=== PATIENT | male | born 1955 | race Caucasian/White ===

== ENCOUNTER 2016-05-03 12:44 | Emergency (ER) | payer BC ==
[~2016-05-03] VITALS: Ht 172.7 cm; Wt 83.0 kg
[~2016-05-03 12:44] MED LIST: ASPEC81 PO; HYDR-5688 PO; LVQ750 PO; MULT-506 PO; NRN600 PO
[2016-05-03 12:49] VITALS: TEMP 36.9; Ht 172.7 cm; Wt 83.0 kg
[2016-05-03] MEDS ORDERED: MoRPHine SULFATE 10 MG/ML CARP/VIAL IM STA (13:14)
[2016-05-03] MEDS ORDERED: MULT-599 PO (13:17)
[2016-05-03] MEDS ORDERED: CYCL5TAB PO (13:17)
[2016-05-03] MEDS ORDERED: NAPR-1169 PO (13:17)
[2016-05-03] MEDS ORDERED: IBUP-1450 PO (13:17)
--- NOTE | 2016-05-03 15:25 | DIAGNOSTIC IMAGING REPORT ---
MRI LUMBAR SPINE W/O CONTRAST CLINICAL HISTORY: Low back pain with left leg radiculopathy and left leg weakness. TECHNIQUE: Sagittal and axial T1, T2 and STIR images were obtained. COMPARISON STUDY: No previous studies for comparison. OBSERVATIONS: The vertebral bodies and posterior elements appear intact. There is no abnormal bony signal present to suggest a marrow replacement process. L1-2: No disc protrusions or extrusions. No evidence of spinal canal or neural foraminal compromise. L2-3: No disc protrusions or extrusions. No evidence of spinal canal or neural foraminal compromise. L3-4: There is a circumferential disc bulge with minor spinal stenosis. There is no stomach and foraminal narrowing L4-5: There is a circumferential disc bulge with minor spinal canal narrowing. There is minor right-sided foraminal narrowing. L5-S1: No disc protrusions or extrusions. No evidence of spinal canal or neural foraminal compromise. The conus medullaris appears normal. There is a 2 mm focus of T2 decreased signal within the cauda equina at the L3-4 level. This is of doubtful acute clinical significance. IMPRESSION: Mild spondylitic changes with disc bulges and minor spinal canal narrowing at the L3-4 and L4-5 levels. Electronically signed by: Eduardo Basilio M.D. 05/03/2016 3:23 PM Dictated Date/Time: 05/03/2016 3:18 PM
[2016-05-03] MEDS ORDERED: OXYC-57 PO (15:56)
--- NOTE | 2016-05-03 15:59 | EMERGENCY ROOM VISIT NOTE ---
History First contact with patient: 13:01 Chief Complaint: BACK PAIN Stated Complaint: LOWER BACK PAIN, LOWER LEFT LEG PAIN History of Present Illness The patient is a 60 year old male who presents to the Emergency Room with complaints of low back pain with radiation to the left leg 5 days. The patient states that he has had pain in the center of his low back with radiation down the left leg worsening over the past 5 days. He states that for the past 3 days, the pain has been so severe that he is having difficulty sleeping. He has been at his primary care provider 3-4 times and has been given prescriptions for ibuprofen, naproxen and Flexeril. He has taken all of these medications without relief. He rates the discomfort a 10/10. He does report a history of back issues and has had injections by pain management in the past. He reports weakness in the left leg and states that the leg drags when he walks. He does not do any heavy lifting or manual labor. He denies any specific injury to the back. The patient denies any numbness of the leg, bowel or bladder incontinence, urinary retention, dysuria, abdominal pain, nausea or vomiting. He denies any saddle anesthesias. He denies any recent fevers/chills. Review of Systems A complete 6 point review of systems was reviewed with the patient with pertinent positives and negatives as per history of present illness. All else were negative. Past Medical/Surgical History Medical Problems: (1) Carpal tunnel syndrome Family History Cancer Diabetes mellitus Heart disease Hypertension Lung disease Social History Smoking Status: Never Smoker Alcohol Use: occasionally Marital Status: Housing Status: lives with significant other Occupation Status: employed Current/Historical Medications Scheduled Naproxen (Naprosyn), 500 MG PO BID Scheduled PRN Cyclobenzaprine Hcl (Flexeril), 7.5 TAB PO HS PRN for Muscle Spasms Ibuprofen (Motrin), 600 MG PO Q6H PRN for Pain Oxycodone/Acetaminophen 5MG/325MG (Percocet 5MG/325MG), 1-2 TABS PO Q4H PRN for Pain Miscellaneous Medications Multiple Vitamins W/ Minerals (Mens 50+ Multi Vitamin &) Allergies Coded Allergies: Codeine (Unverified Allergy, Unknown, ., 05/03/16) Physical Exam Vital Signs Date Time Temp Pulse Resp B/P Pulse Ox O2 Delivery O2 Flow Rate FiO2 05/03/16 16:28 89 16 127/84 97 05/03/16 12:49 36.9 101 16 141/90 95 Room Air Physical Exam VITALS: Vitals are noted on the nurse's note and reviewed by myself. No abnormalities noted. GENERAL: This is a 60-year-old male, in no acute distress, nondiaphoretic, well- developed well-nourished. SKIN: The skin was without rashes, erythema, edema, or bruising. HEAD: Normocephalic atraumatic. EYES: Pupils equal round and reactive to light and accommodation. The Extraocular movements intact. NECK: Supple without nuchal rigidity. No cervical spine tenderness. No paraspinous muscle tenderness. No lymphadenopathy. HEART: Regular rate and rhythm without murmurs gallops or rubs. LUNGS: Clear to auscultation bilaterally without wheezes, rales or rhonchi. ABDOMEN: Soft, nontender. MUSCULOSKELETAL: No muscle atrophy, erythema, or edema noted of the back. There is mild tenderness over the left lumbar region. There is no tenderness over the thoracic spine or paraspinous muscles. There are no muscle spasms present. The left leg is slightly weak compared to the right. Distal sensation to touch is intact. Patient does display some difficulty with gait, dragging the left leg slightly. NEURO: Patient was alert and oriented to person place and time. Normal sensation to light and sharp touch. Deep tendon reflexes 2+ in the lower extremities. Dorsalis pedis pulse 2+ bilaterally. Medical Decision & Procedures ER Provider Diagnostic Interpretation: MRI LUMBAR SPINE W/O CONTRAST CLINICAL HISTORY: Low back pain with left leg radiculopathy and left leg weakness. TECHNIQUE: Sagittal and axial T1, T2 and STIR images were obtained. COMPARISON STUDY: No previous studies for comparison. OBSERVATIONS: The vertebral bodies and posterior elements appear intact. There is no abnormal bony signal present to suggest a marrow replacement process. L1-2: No disc protrusions or extrusions. No evidence of spinal canal or neural foraminal compromise. L2-3: No disc protrusions or extrusions. No evidence of spinal canal or neural foraminal compromise. L3-4: There is a circumferential disc bulge with minor spinal stenosis. There is no stomach and foraminal narrowing L4-5: There is a circumferential disc bulge with minor spinal canal narrowing. There is minor right-sided foraminal narrowing. L5-S1: No disc protrusions or extrusions. No evidence of spinal canal or neural foraminal compromise. The conus medullaris appears normal. There is a 2 mm focus of T2 decreased signal within the cauda equina at the L3-4 level. This is of doubtful acute clinical significance. IMPRESSION: Mild spondylitic changes with disc bulges and minor spinal canal narrowing at the L3-4 and L4-5 levels. Medications Administered Medications (Trade) Dose Ordered Sig/Brayan Route Start Time Stop Time Status Last Admin Dose Admin Morphine Sulfate (MoRPHine SULFATE INJ) 8 mg NOW STAT IM 05/03/16 13:14 05/03/16 13:18 DC 05/03/16 13:37 8 MG Medical Decision Differential diagnosis includes cauda equina syndrome, cord compression, lumbar disc herniation, muscular strain, muscle spasm, epidural abscess, malignancy, among others. The patient was evaluated as above. He was given 8 mg morphine IM with significant relief of his pain. As the patient did report weakness in the left leg and did display some objective weakness and gait difficulty, I chose to perform an MRI of the lumbar spine. MRI was performed and read by radiology with mild disc bulge and minor canal narrowing at L3 to L4 and L4 to L5. The patient was informed of these findings. He was instructed to continue the naproxen at home and will be given a prescription for Percocet as well. He was instructed to follow-up closely with his primary care provider and possibly pain management, as he has seen them in the past. He was educated on worrisome symptoms which would necessitate return to the emergency department sooner. The patient was independently evaluated by Dr. You, ED attending physician , who agreed with my assessment and treatment plan. The patient verbalized his understanding of my assessment and treatment plan and was discharged home in good condition. [place] Drug Monitoring Program Search Results: patient reviewed within database, no issues identified Impression Primary Impression: Lumbar radiculopathy Departure Information Dispostion Home / Self-Care Condition GOOD Prescriptions Oxycodone/Acetaminophen 5MG/325MG (PERCOCET 5MG/325MG) Tab 1-2 TABS PO Q4H Y for Pain, #20 TAB For Initial Treatment Prov: Lily Haskins ., AMOS 05/03/16 Referrals Osmin Betancur M.D. (PCP) Patient Instructions My [facility] Additional Instructions You have been treated in the Emergency Department for Back Pain. You have received pain medicine in the emergency department which impairs your ability to operate a vehicle. It is illegal for you to drive after receiving these medicines. You have been prescribed Percocet to be used for pain control. This is a narcotic medication. You cannot drive or consume alcohol while on this medicine. This medicine should only be used for pain that cannot be controlled with [id number] pain medicines. Follow-up with your primary care provider this week regarding your back pain. For pain control, you can use the following [id number] medicines (if >12 yo): - Regular strength (325mg/tab) Tylenol (acetaminophen) 2 tabs every 4-6 hours as needed. Do not exceed 12 tablets in a 24 hour period. Avoid taking more than 4 grams (4000 mg) of Tylenol per day. This includes any other sources of acetaminophen you may take on a regular basis. - Regular strength (200 mg/tab) Advil (ibuprofen) 1-2 tabs every 4-6 hours as needed. Do not exceed a dose of 3200 mg per day. If this is an acute injury, ice can be applied to the area of pain for the first 3 days to help decrease pain and inflammation. After the first 3 days, a heating pad can be used over the area for continued soothing relief. You should schedule a follow-up appointment in 2-3 days with your Primary Care Provider for further evaluation and treatment of your back pain. Return to the Emergency Department if your current symptoms worsen despite treatment course outlined above, or if you develop any of the following symptoms : intractable pain despite aforementioned treatment course, loss of control of your bowel or bladder, numbness or tingling in your groin, or development of a fever.
[2016-05-03 16:28] VITALS: BP 127/84; PULSE 89; O2SAT 97
--- NOTE | 2016-05-03 19:42 | EMERGENCY ROOM VISIT NOTE ---
ED Visit Note First contact with patient: 13:01 I have personally evaluated and examined this patient. I agree with assessment and plan of Lily Haskins PA-C. Arrives with leg weakness and low back pain. MRI completed and with pain meds notes leg weakness improved.
[2016-05-04] MEDS ORDERED: PRED50TA PO (15:35)
[2016-06-16] MEDS ORDERED: BUME1TAB PO (13:53)
[2016-06-16] MEDS ORDERED: BISA-16 PO (13:53)
[2016-06-16] MEDS ORDERED: GLC/500 PO (13:53)
[2016-06-16] MEDS ORDERED: OXYC-57 PO (13:53)
[2016-06-25] MEDS ORDERED: RXC5 PO (14:22)
[2016-09-01] MEDS ORDERED: OXYM1TAB PO (10:38)
[2016-09-01] MEDS ORDERED: HYDR2TAB48 PO (10:38)
== END 2016-05-03 16:29 | disposition home or self-care (01) ==
LOC: C.EDB 12:46 → C.EDD 16:29
DX: M54.16 Radiculopathy, lumbar region (principal); Z83.3 Family history of diabetes mellitus; Z82.49 Family history of ischemic heart disease and other diseases of the circulatory system

== ENCOUNTER 2016-05-04 13:20 | Emergency (ER) | payer BC ==
[~2016-05-04] VITALS: Ht 172.7 cm; Wt 72.9 kg
[~2016-05-04 13:20] MED LIST changes: -ASPEC81 PO; +CYCL5TAB PO; -HYDR-5688 PO; +IBUP-1450 PO; -LVQ750 PO; -MULT-506 PO; +MULT-599 PO; +NAPR-1169 PO; -NRN600 PO; +OXYC-57 PO
[2016-05-04 13:24] VITALS: TEMP 37; Ht 172.7 cm; Wt 72.9 kg
[2016-05-04] MEDS ORDERED: KETOROLAC TROMETHAMINE 60 MG/2 ML VIAL IM STA (14:06)
[2016-05-04] MEDS ORDERED: DEXAMETHASONE SOD INJ 10 MG/ML VIAL IM ONE (14:15)
[2016-05-04] MEDS ORDERED: PRED50TA PO (15:35)
[2016-05-04 15:46] VITALS: BP 139/89; PULSE 94; O2SAT 94
--- NOTE | 2016-05-05 17:56 | EMERGENCY ROOM VISIT NOTE ---
History First contact with patient: 13:45 Chief Complaint: LEG PAIN,LEG INJURY Stated Complaint: RIGHT LEG PAIN History of Present Illness The patient is a 60 year old white male who presents to the Emergency Room with complaints of continued left low back and leg pain. He was seen here last night and was diagnosed with sciatica. He was prescribed Percocet. He states the Percocet is not helping his pain. He did receive an injection of morphine last night and states that helped. No new trauma. He is having developed a sleeping. His and mother accompany him today. Pain is rated as 10/10. He denies any loss of bowel or bladder control. He saw his PCP on Thursday and was prescribed Naprosyn and cyclobenzaprine. He denies any falls or trauma. He had an MRI yesterday that showed mild stenosis and disc protrusion. No significant findings requiring surgical intervention or admission. Review of Systems REVIEW OF SYSTEM: HEENT: No dizziness, visual problems, hearing loss, or tinnitus. There is no difficulty swallowing and no oral lesions are present. PULMONARY: No cough, shortness of breath, sputum production or hemoptysis. CARDIOVASCULAR: No chest pain, palpitations, shortness of breath or peripheral edema. GASTROINTESTINAL: No diarrhea, constipation, nausea, vomiting, or abdominal pain. GENITOURINARY: No dysuria, frequency, urgency or nocturia. NEUROLOGIC: No weakness, muscle tenderness, epilepsy or history of neurological problems. MUSCULOSKELETAL: No history of joint tenderness/swelling. No history of arthritis or arthralgias. Significant for chronic back pain. SKIN: No rashes or lesions. ENDOCRINE: No history of diabetes, thyroid disorders, or abnormal hair growth. Past Medical/Surgical History Medical Problems: (1) Carpal tunnel syndrome Previous surgeries: Carpal tunnel release, cubital tunnel release, appendectomy Family History Cancer Diabetes mellitus Heart disease Hypertension Lung disease Social History Smoking Status: Never Smoker Smokeless Tobacco Use: No Alcohol Use: none Marital Status: Housing Status: lives with significant other Occupation Status: employed Current/Historical Medications Scheduled Naproxen (Naprosyn), 500 MG PO BID Prednisone (Prednisone), 50 MG PO DAILY Scheduled PRN Cyclobenzaprine Hcl (Flexeril), 7.5 TAB PO HS PRN for Muscle Spasms Ibuprofen (Motrin), 600 MG PO Q6H PRN for Pain Oxycodone/Acetaminophen 5MG/325MG (Percocet 5MG/325MG), 1-2 TABS PO Q4H PRN for Pain Miscellaneous Medications Multiple Vitamins W/ Minerals (Mens 50+ Multi Vitamin &) Allergies Coded Allergies: Codeine (Unverified Allergy, Unknown, ., 05/04/16) Physical Exam Vital Signs Date Time Temp Pulse Resp B/P Pulse Ox O2 Delivery O2 Flow Rate FiO2 05/04/16 15:46 94 18 139/89 94 05/04/16 13:24 37.0 92 18 131/90 98 Room Air Pain Rating (0-10): 5.0 Physical Exam Gen.: Well developed, well-nourished, middle-aged white male, in obvious discomfort. No acute distress. Sitting on a bed. Alert and oriented. He does not appear in 10/10 pain. Skin:Warm and dry with good turgor. No rashes or lesions. No ecchymosis or erythema. The patient is not diaphoretic. No abrasions. Musculoskeletal: Low back evaluation reveals no obvious asymmetry or deformity. He has no discomfort with palpation over the vertebral bodies or discs spaces. There is pain with palpation over the left SI joint. Pain extends into the buttock and along the sciatic notch. Pressure in the sciatic notch increases his left leg radiculopathy. No pain with palpation on the right SI joint. He has intact motor function to both lower extremities. Hip flexion increases pain on the left as does Kernig/Brudzinski testing. No increase in pain with hip flexion or Kernig/Brudzinski testing on the right leg. Neurologic: Gross sensation is intact across all aspects of the left leg by soft touch. DTRs are 2+ bilaterally at the knees and ankles. Peripheral pulses are 2+. Medical Decision & Procedures Medications Administered Medications (Trade) Dose Ordered Sig/Brayan Route Start Time Stop Time Status Last Admin Dose Admin Ketorolac Tromethamine (Toradol Inj) 60 mg NOW STAT IM 05/04/16 14:06 05/04/16 14:08 DC 05/04/16 14:57 60 MG Dexamethasone Sodium Phosphate (Decadron Inj) 10 mg NOW ONCE IM 05/04/16 14:15 05/04/16 14:16 DC 05/04/16 14:57 10 MG Toradol 60 mg IM, and Decadron 10 mg IM ED Course Patient and his family were educated regarding today's findings. Conservative care measures were discussed. His MRI from yesterday was reviewed. He has only mild spondylitic changes with disc bulging and minor spinal canal narrowing at the L3/4 at L4/5 levels. No evidence of neural foraminal compromise. Patient was given injections of Toradol 60 mg and Decadron 10 mg and monitored. His pain started to decrease. He was instructed to use the Percocet that he was given yesterday. Additional prescription was given for prednisone to be started on Thursday and take it daily for a week. He should also take his Naprosyn twice a day with food. Avoid the cyclobenzaprine. He has had successful cortisone injections in his low back from pain management. He may call Dr. calles tomorrow for follow-up injections. Gentle stretching daily. Moist heat to the left buttock may also improve his discomfort. Return to the ED for any loss of bowel or bladder control. Medical Decision Possibility of cauda equina, lumbar fracture, disc protrusion, facet syndrome, SI joint dysfunction, sciatica, and muscle strain were considered among others. Impression Primary Impression: Sciatica of left side Additional Impression: Sacroiliac joint dysfunction of left side Departure Information Dispostion Home / Self-Care Condition GOOD Prescriptions Prednisone (Prednisone) 50 Mg Tab 50 MG PO DAILY for 4 Days, #4 TAB Prov: Bronson Youngblood,P.A. 05/04/16 Referrals Abrahan Calles D.O. Forms HOME CARE DOCUMENTATION FORM, SPECIAL NARCOTICS INSTRUCTIONS, IMPORTANT VISIT INFORMATION Patient Instructions My [facility], ED Sciatica Additional Instructions Start your prednisone on Thursday morning and take it daily Take Naprosyn twice a day with food Add Percocet 1-2 tablets every 6 hours as needed for severe pain-no driving Avoid the cyclobenzaprine Call Dr. calles office tomorrow to follow-up for injections Gentle stretching daily Use Tylenol for mild pain-do not take if you are using the Percocet Moist heat to the left buttock may improve your discomfort Problem Qualifiers
[2016-06-16] MEDS ORDERED: BUME1TAB PO (13:53)
[2016-06-16] MEDS ORDERED: GLC/500 PO (13:53)
[2016-06-16] MEDS ORDERED: OXYC-57 PO (13:53)
[2016-06-16] MEDS ORDERED: BISA-16 PO (13:53)
[2016-06-25] MEDS ORDERED: RXC5 PO (14:22)
[2016-09-01] MEDS ORDERED: HYDR2TAB48 PO (10:38)
[2016-09-01] MEDS ORDERED: OXYM1TAB PO (10:38)
== END 2016-05-04 15:47 | disposition home or self-care (01) ==
LOC: C.EDB 13:21 → C.EDD 15:47
DX: M54.42 Lumbago with sciatica, left side (principal); M53.3 Sacrococcygeal disorders, not elsewhere classified; Z88.5 Allergy status to narcotic agent; Z80.9 Family history of malignant neoplasm, unspecified; Z83.3 Family history of diabetes mellitus; Z82.49 Family history of ischemic heart disease and other diseases of the circulatory system; Z79.899 Other long term (current) drug therapy

== ENCOUNTER → 2016-05-26 | Outpatient (CLI) | payer BC ==
[~2016-05-26] MED LIST changes: +BISA-16 PO; +BUME1TAB PO; +GLC/500 PO; +HYDR2TAB48 PO; +INSDGIPEN SC; +OXYC7.5T66 PO; +OXYM1TAB PO; +PRD20 PO; +RXC5 PO
--- NOTE | 2016-05-26 10:50 | DIAGNOSTIC IMAGING REPORT ---
ABDOMINAL ULTRASOUND COMPLETE HISTORY: Pain R/O PANCREATIC Neoplasm, type II Diabetes, swelling. COMPARISON: 04/24/2014 FINDINGS: Pancreas: The pancreas demonstrates a normal echotexture. Liver: Unremarkable. Gallbladder: No gallbladder wall thickening. No gallstones. CBD: 4 mm Kidneys: 2.9 cm right renal cyst. Otherwise negative renal ultrasound Spleen: Normal in size. Aorta: Normal in caliber. IVC: Patent. IMPRESSION: Small right renal cyst. Otherwise negative study Electronically signed by: Yassine Pittman M.D. 05/26/2016 10:49 AM Dictated Date/Time: 05/26/2016 10:47 AM
== END | disposition home or self-care (01) ==
LOC: C.ULTRBC 09:44
PROVIDERS: ATTEND Family Medicine
DX: E11.9 Type 2 diabetes mellitus without complications (principal); R60.9 Edema, unspecified

== ENCOUNTER → 2016-06-16 | Outpatient (CLI) | payer BC ==
[~2016-06-16] MED LIST changes: +AZIT250T PO
--- NOTE | 2016-06-16 13:22 | DIAGNOSTIC IMAGING REPORT ---
CHEST 2 VIEWS ROUTINE HISTORY: PRE OP COMPARISON: Chest 04/23/2014. FINDINGS: The lungs are clear. Cardiac silhouette is normal in size. No pleural effusions. No pneumothorax. IMPRESSION: No acute process. Electronically signed by: Ion Camacho M.D. 06/16/2016 1:20 PM Dictated Date/Time: 06/16/2016 1:19 PM
[2016-06-16 13:35] LABS: BASO % 1.3 %; BASO ABS # 0.08 K/uL (0-0.2); COMPLETE YES; EOS % 2.4 %; HEMATOCRIT 41.8 % (42-52); IG% 0.3 %; LYMPH % 42.7 %; LYMPH ABS # 2.68 K/uL (1.2-3.4); MEAN CELL VOLUME 86.2 fL (80-100); MEAN CORPUSCULAR HEMOGLOBIN 30.9 pg (25-34); MEAN CORPUSCULAR HGB CONC 35.9 g/dl (32-36); MEAN PLATELET VOLUME 9.8 fL (7.4-10.4); MONO % 7.3 %; PLATELET COUNT 305 K/uL (130-400); RED BLOOD COUNT 4.85 M/uL (4.7-6.1); WHITE BLOOD COUNT 6.28 K/uL (4.8-10.8)
[2016-06-16 13:39] LABS: URINE APPEARANCE CLEAR (CLEAR); URINE BILIRUBIN NEG (NEG); URINE COLOR YELLOW; URINE NITRITE NEG (NEG); URINE SPECIFIC GRAVITY 1.018 (1.000-1.030); UROBILINOGEN NEG (NEG)
[2016-06-16 13:51] LABS: MANUAL MICROSCOPIC REQUIRED? NO; REVIEW REQ? NO
[2016-06-16 14:01] LABS: BLOOD UREA NITROGEN 15 mg/dl (7-18); CALCIUM 8.9 mg/dl (8.5-10.1); CARBON DIOXIDE 31 mmol/L (21-32); CHLORIDE 97 mmol/L (98-107); CREATININE 0.77 mg/dl (0.60-1.40); GLUCOSE 288 mg/dl (70-99); POTASSIUM 3.8 mmol/L (3.5-5.1); SODIUM 136 mmol/L (136-145)
== END | disposition home or self-care (01) ==
LOC: C.CPL 11:52
PROVIDERS: ATTEND Orthopaedic Surgery Orthopaedic Surgery of the Spine
DX: M51.26 Other intervertebral disc displacement, lumbar region (principal)

== ENCOUNTER 2016-06-25 05:46 | Inpatient (IN) | payer BC, OTHER ==
[2016-06-16 13:53] VITALS: BMI 25.0
--- NOTE | 2016-06-24 08:53 | HISTORY & PHYSICAL EXAMINATION ---
DATE OF ADMISSION: 06/25/2016 HISTORY OF PRESENT ILLNESS: The patient presents to our office with the complaint of lower back pain radiating down the left leg including the buttock, thigh and weakness in the left leg. This started abruptly about 6-8 weeks ago. His symptoms are progressing. He was sent to the Emergency Room multiple times because of this. He has trialed [address] Calles which were not providing relief. He has been requiring pain medications. He is using a walking stick to hold himself up. He cannot be on his feet for more than a minute secondary to this pain. He denies bowel or bladder dysfunction. PAST MEDICAL HISTORY: The patient's medical history is significant for diabetes. PAST SURGICAL HISTORY: Significant for appendectomy, elbow surgeries and right hand surgery. MEDICATIONS: Include Lyrica and gabapentin. CURRENT MEDICATIONS: Include metformin 500 mg 2 tabs twice a day, Dulcolax 5 mg 2 in the morning, 1 in the evening and unknown water pill 1 tab twice a day and Percocet 7.5/325 one every 2 hours. SOCIAL HISTORY: He does not work. He is . Alcohol a beer several a week. Tobacco use is none listed. FAMILY HISTORY: Significant for lung cancer. REVIEW OF SYSTEMS: Significant for difficulty walking, hearing loss, vision loss. PHYSICAL EXAMINATION: VITAL SIGNS: 5 feet 8, 195 pounds. HEAD, EYES, EARS, NOSE, AND THROAT: Speech is appropriate. CARDIOPULMONARY: No gross abnormalities. ABDOMEN: Soft, nontender. GENITOURINARY: Deferred. NEUROLOGIC: Cranial nerves II-XII grossly intact. MUSCULOSKELETAL: Moves slowly around the room. He does require a cane. He is in obvious distress. He has weakness over the left quadriceps roughly 3/5. He has some blunting sensation over the left thigh. ASSESSMENT: Right-sided disc herniation L3-L4 causing stenosis. PLAN: At this point in time, he has trialed and failed conservative therapy and may consider surgical intervention. Surgery would require lumbar decompression with instrumented fusion, L3-4, L4-5. Risks, benefits, pros, cons, and alternatives were outlined in detail. The patient would like to proceed with the above-mentioned surgical planning. MARY IMOGEN[facility]ASSETT HOSPITALNapoleon
[~2016-06-25] VITALS: Ht 170.2 cm; Wt 74.1 kg
[2016-06-25] VITALS (9 sets, daily range): BP systolic 117–134; BP diastolic 71–80; PULSE 82–98; TEMP 36.4–36.8; O2SAT 97–100; BMI 25.0
[~2016-06-25 05:46] MED LIST changes: -AZIT250T PO; -CYCL5TAB PO; -HYDR2TAB48 PO; -IBUP-1450 PO; -INSDGIPEN SC; -NAPR-1169 PO; -OXYC7.5T66 PO; -OXYM1TAB PO; -PRD20 PO; -RXC5 PO
[2016-06-25] MEDS ORDERED: CEFAZOLIN 1000MG/55 ML D5W IV SCH (06:00)
[2016-06-25] MEDS ORDERED: LACTATED RINGER'S 1000ML 1,000 ML IV SCH (06:00)
[2016-06-25] MEDS ORDERED: MIDAZOLAM HCL 1 MG/ML 2ML VIAL ONE (06:45)
[2016-06-25] MEDS ORDERED: FENTANYL CITRATE INJ 50 MCG/1 ML 2 ML VIAL ONE ×4 (06:45→09:12)
[2016-06-25] MEDS ORDERED: SODIUM CHLORIDE 0.9% PF 50 ML VIAL ONE (07:03)
[2016-06-25] MEDS ORDERED: BACITRACIN 50000 UNIT VIAL ONE (07:03)
[2016-06-25] MEDS ORDERED: BUPIVACAINE/EPINEPHRINE 0.5% MPF 1:200,000 30 ML VIAL ONE (07:03)
--- NOTE | 2016-06-25 07:24 | History & Physical Bridge Note ---
H&P Re-Evaluation Bridge Note: I have examined the patient, reviewed the History & Physical and in the interval since the performance of the History & Physical I have noted the following changes of clinical significance: No changes noted
[2016-06-25] MEDS ORDERED: HYDROmorphone INJ 2 MG/ML SYR/VIAL ONE ×2 (08:02→09:22)
[2016-06-25] MEDS ORDERED: EpHEDrine SULFATE INJ 50 MG/ML AMP IV PRN (08:15)
[2016-06-25] MEDS ORDERED: ATROPINE SULFATE 0.1 MG/ML 5ML SYR IV PRN (08:15)
[2016-06-25] MEDS ORDERED: PHENYLEPHRINE 100MCG/ML 5ML SYR IV PRN (08:15)
[2016-06-25] MEDS ORDERED: ONDANSETRON INJ 2 MG/ML 2 ML VIAL IV PRN ×2 (08:15→09:15)
[2016-06-25] MEDS ORDERED: PROPOFOL IV EMULSION 10 MG/ML 20 ML VIAL IV ONE (08:48)
[2016-06-25] MEDS ORDERED: LIDOCAINE HCL 2% 2 ML VIAL (20MG/ML) ONE (08:48)
[2016-06-25] MEDS ORDERED: ROCURONIUM BROMIDE 10 MG/ML 5 ML VIAL ONE (08:48)
[2016-06-25] MEDS ORDERED: DEXAMETHASONE SOD INJ 4 MG/ML VIAL ONE (08:48)
[2016-06-25] MEDS ORDERED: FLOSEAL HEMOSTATIC MATRIX 10ML TOP ONE (09:01)
[2016-06-25] MEDS ORDERED: SODIUM CHLORIDE 0.9% 1000ML 1,000 ML IV SCH (09:10)
--- NOTE | 2016-06-25 09:10 | [facility] Post Operative Brief Note ---
Immediate Operative Summary Operative Date Jun 25, 2016. Pre-Operative Diagnosis Right Sided Disc Herniation L3-L4 Causing Stenosis. Post-Operative Diagnosis Same as preoperative. Procedure(s) Performed L3-L5 Posterior Lumbar Decompression, Fusion with Pedicle Screw Fixation, Interbody Fusion with Placement of Interbody Device L4-L5, Application of Ramona Allograft, Bone Morphogenetic Protein Surgeon Veterinary Science Teacher Surgeon(s) Archana Meyers PA-C Estimated Blood Loss 150 Findings stenosis Specimens None per surgeon
[2016-06-25] MEDS ORDERED: ALUMINUM/MAGNESIUM SUSP 30 ML UDC PO PRN (09:15)
[2016-06-25] MEDS ORDERED: MAGNESIUM HYDROXIDE SUSP 30 ML UDC PO PRN (09:15)
[2016-06-25] MEDS ORDERED: PROMETHAZINE HCL INJ 12.5 MG in SODIUM CHLORIDE 0.9% 50ML 50 ML IV PRN (09:15)
[2016-06-25] MEDS ORDERED: LORAZEPAM 0.5 MG TAB PO PRN (09:15)
[2016-06-25] MEDS ORDERED: METOCLOPRAMIDE HCL INJ 5 MG/ML 2 ML VIAL IV PRN (09:15)
[2016-06-25] MEDS ORDERED: ACETAMINOPHEN IV 100 ML IV PRN (09:15)
[2016-06-25] MEDS ORDERED: BISACODYL 10 MG SUPP PR PRN (09:15)
[2016-06-25] MEDS ORDERED: FAMOTIDINE 20 MG TAB PO PRN (09:15)
[2016-06-25] MEDS ORDERED: DO NOT ADMINISTER PNEUMOCOCCAL VACCINE PRN ×2 (09:15)
[2016-06-25] MEDS ORDERED: DO NOT ADMINISTER FLU VACCINE PRN ×3 (09:15)
[2016-06-25] MEDS ORDERED: SOD PHOSPHATE/SOD BIPHOSPHATE ENEMA 132 ML BTL PR PRN (09:15)
[2016-06-25] MEDS ORDERED: LORAZEPAM INJ 0.5 MG in SYRINGE 0 ML IV PRN (09:15)
[2016-06-25] MEDS ORDERED: hydrOXYzine HCL 25 MG TAB PO PRN (09:15)
[2016-06-25] MEDS ORDERED: ACETAMINOPHEN 500 MG TAB PO PRN (09:15)
[2016-06-25] MEDS ORDERED: NALOXONE HCL 0.4 MG/1 ML VIAL/CARP IV PRN ×2 (09:15)
--- NOTE | 2016-06-25 09:21 | DIAGNOSTIC IMAGING REPORT ---
LUMBAR SPINE, INTRAOPERATIVE FLUOROSCOPY HISTORY: L3-L5 decompression and fusion. FLUOROSCOPY TIME: 16 seconds. FINDINGS: Intraoperative fluoroscopy was provided for the lumbar spine. 2 fluoroscopic spot images were obtained. Posterior decompression and fusion from L3 through L5 with pedicle screws and rods. The hardware appears intact. IMPRESSION: Fluoroscopy provided for a L3 L5 posterior decompression and fusion. Electronically signed by: Ion Camacho M.D. 06/25/2016 9:19 AM Dictated Date/Time: 06/25/2016 9:18 AM
--- NOTE | 2016-06-25 09:34 | OPERATIVE REPORT ---
DATE OF OPERATION: 06/25/2016 PREOPERATIVE DIAGNOSIS: Spinal stenosis. POSTOPERATIVE DIAGNOSIS: Same. PROCEDURE PERFORMED: 1. Lumbar decompression, medial facetectomies, foraminotomies L2-L3, L3-L4, L4-L5. 2. Posterior spinal fusion L3-L4, L4-L5. 3. Placement of posterior segmental instrumentation using Orthros rods and screws L3-4, L4-L5. 4. Interbody fusion L4-L5. 5. Placement of PEEK cage 11 x 22 mm at L4-L5. 6. Placement of locally harvested morcellized allograft in posterior gutters. 7. Placement of Infuse collagen sponge combined with Mastergraft in posterior gutters and Ramona bone graft in the interbody space. SURGEON: Dr. Chip Lynne. PRODUCT DEVELOPMENT CHEMIST: PILAR Ivy. Due to the complex nature of the procedure, the entire surgery was performed with the players assistant of PILAR Ivy. The photography assistant, under direct supervision, was involved in the actual performance of all aspects of the surgical procedure including hemostasis, tissue retraction and incision, instrument management, patient positioning, and wound closure. ANESTHESIA: General. DISPOSITION: The patient awakened and taken to PACU in stable condition. HISTORY OF PATIENT'S PROBLEMS: This is a 61-year-old male that presents with the above-mentioned diagnosis. After failing extensive course of nonoperative care, elected to undergo the above-mentioned procedure. Risks, benefits, pros, cons, and alternatives were outlined in detail preoperatively. PROCEDURE IN DETAIL: The patient was met with preoperatively, case discussed, all questions addressed. At that point, the patient was taken back to the operative suite, and after undergoing successful general intubation by the department of anesthesia, was placed in prone position on Rony table atop the Alan frame. All bony prominences were well padded and the eyes were inspected to ensure there was no external pressure placed upon them. At this point, lumbar spine was prepped and draped in normal sterile fashion. Sharp dissection with the assistance of Bovie cautery was then performed down to and exposing the lamina and transverse processes of L3, L4, L5 bilaterally. From a caudal to cephalad fashion, complete laminectomy of L4, L3, partial laminectomy of L2 was performed as well as medial facetectomies and foraminotomies to address severe lateral recess and foraminal disease. After this was complete, pedicle screws were then placed in L3, L4, L5 bilaterally with the assistance of fluoroscopy and appropriate size lucrecia provisionally placed. Through a transforaminal approach on the left, complete discectomy of L4-L5 was performed, endplates curetted to subcortical bleeding bone, and an 11 x 22 mm PEEK cage filled with Ramona bone grafting tapped into position. The rods were then locked into final position bilaterally and transverse processes of L3, L4, L5 burred to subcortical bleeding bone. Infuse collagen sponge combined with Mastergraft and locally harvested morcellized allograft was placed in the posterior gutters. A 7 flat TOPHER drain was inserted. Incision was closed with 1-0 Vicryl in the fascia, 2-0 Vicryl subcutaneously, 4-0 Monocryl for final skin closure. Steri-Strips and sterile dressing placed. The patient was awakened and taken to PACU in stable condition. I attest to the content of the Intraoperative Record and any orders documented therein. Any exceptio ns are noted below.
[2016-06-25] MEDS ORDERED: HYDROmorphone HCL 0.5MG/ML 50 ML CASSETTE ONE (09:42)
[2016-06-25] MEDS: HYDROmorphone INJ 2 MG/ML SYR/VIAL IV PRN ×2 (10:00→10:05)
[2016-06-25] MEDS ORDERED: ONDANSETRON INJ 2 MG/ML 2 ML VIAL ONE (10:21)
[2016-06-25] MEDS ORDERED: PHENYLEPHRINE 100MCG/ML 5ML SYR ONE (10:21)
[2016-06-25] MEDS ORDERED: GLYCOPYRROLATE INJ 0.2 MG/ML VIAL ONE (10:21)
[2016-06-25] MEDS ORDERED: NEOSTIGMINE METHYLSULFATE 1 MG/ML 10ML VIAL ONE (10:21)
[2016-06-25] MEDS ORDERED: KETOROLAC TROMETHAMINE 30 MG/ML VIAL ONE (10:21)
--- NOTE | 2016-06-25 11:03 | Anesthesiology Progress Note ---
Anesthesia Post Op Note Date & Time Jun 25, 2016 at 11:02 Vital Signs Pain Intensity: 8.0 Vital Signs Past 12 Hours Date Time Temp Pulse Resp B/P Pulse Ox O2 Delivery O2 Flow Rate FiO2 06/25/16 11:01 86 17 131/79 100 Nasal Cannula 2.0 06/25/16 10:35 Nasal Cannula 2.0 06/25/16 10:35 Nasal Cannula 2.0 06/25/16 10:35 36.6 86 17 120/73 100 Nasal Cannula 2.0 06/25/16 10:27 87 16 06/25/16 10:27 86 16 100 06/25/16 10:26 120/76 06/25/16 10:25 36.1 90 17 120/76 100 Nasal Cannula 4 06/25/16 10:22 85 8 100 06/25/16 10:22 85 8 06/25/16 10:20 132/75 06/25/16 10:17 85 11 06/25/16 10:17 87 11 100 06/25/16 10:15 119/91 06/25/16 10:12 88 14 06/25/16 10:12 88 14 100 06/25/16 10:11 125/88 06/25/16 10:07 86 14 06/25/16 10:07 86 14 100 06/25/16 10:06 86 10 06/25/16 10:06 86 10 100 06/25/16 10:05 126/76 06/25/16 10:01 86 16 06/25/16 10:01 85 16 100 06/25/16 10:00 126/76 06/25/16 09:56 82 7 100 06/25/16 09:56 82 7 06/25/16 09:55 127/77 06/25/16 09:51 84 7 06/25/16 09:51 84 7 100 06/25/16 09:50 127/78 06/25/16 09:46 91 14 100 06/25/16 09:46 91 14 06/25/16 09:45 128/81 06/25/16 09:41 92 17 100 06/25/16 09:41 92 17 06/25/16 09:40 134/75 06/25/16 09:36 90 12 06/25/16 09:36 91 12 100 06/25/16 09:35 122/74 06/25/16 09:31 98 16 06/25/16 09:31 98 16 128/72 100 06/25/16 09:26 36.1 96 14 135/74 100 Mask 10 06/25/16 09:26 98 135/73 100 06/25/16 09:26 98 06/25/16 06:15 36.8 94 18 127/80 100 Room Air Notes Mental Status: alert / awake / arousable, participated in evaluation Pt Amnestic to Procedure: Yes Nausea / Vomiting: adequately controlled Pain: adequately controlled Airway Patency, RR, SpO2: stable & adequate BP & HR: stable & adequate Hydration State: stable & adequate Anesthetic Complications: no major complications apparent
[2016-06-25] MEDS ORDERED: PHARMACY GLYCEMIC MGMT CONSULT PRN (11:09)
[2016-06-25] MEDS ORDERED: INSULIN GLARGINE SOLOSTAR 100 UNITS/ML 3 ML PEN SC ONE (11:15)
--- NOTE | 2016-06-25 12:07 | Discharge Instructions ---
Discharge Instructions Date of Service Jun 25, 2016. Admission Reason for Admission: Lumbar Spinal Stenosis Discharge Discharge Diagnosis / Problem: post op Discharge Goals Goal(s): Decrease discomfort, Improve function, Increase independence Activity Recommendations Activity Limitations: per Instructions/Follow-up section . Current Hospital Diet Patient's current hospital diet: Diabetes Type 2 Diet Discharge Diet Recommended Diet: Regular Diet Procedures Procedures Performed: L3-L5 Posterior Lumbar Decompression, Fusion with Pedicle Screw Fixation, Interbody Fusion with Placement of Interbody Device L4-L5, Application of Ramona Allograft, Bone Morphogenetic Protein Pending Studies Studies pending at discharge: no Medical Emergencies . Who to Call and When: Medical Emergencies: If at any time you feel your situation is an emergency, please call 911 immediately. . Non-Emergent Contact Non-Emergency issues call your: Primary Care Provider, Surgeon . "Provider Documentation" section prepared by Archana Spicer. . VTE Core Measure Inpt VTE Proph given/why not?: Mitch QUEZADA Drug Monitoring Program Search Results: patient reviewed within database, no issues identified
[2016-06-25] MEDS: DEXAMETHASONE INJ 6 MG in SYRINGE 0 ML IV SCH ×2 (12:21→19:52)
[2016-06-25] MEDS: SODIUM CHLORIDE 0.9% 1000ML 1,000 ML IV SCH ×3 (12:21→23:56)
[2016-06-25] MEDS: INSULIN ASPART 100 UNITS/ML 3 ML PEN SC SCH ×3 (13:22→21:24)
--- NOTE | 2016-06-25 14:06 | Pharmacy Progress Note ---
Glycemic Control Intl Consult Date of Service Jun 25, 2016. Scope Glycemic Pharmacist consulted by Dr Lynne on 06/25/2016 for glycemic control and to write orders per [facility] inpatient glycemic control protocol Objective Weight (Kilograms): 74.090 Accuchecks BSG (last 24hrs): Test 06/25/16 06:25 06/25/16 09:33 06/25/16 11:55 Bedside Glucose 160 mg/dl (70-99) 194 mg/dl (70-99) 210 mg/dl (70-99) Recent Pertinent Medications Outpatient Anti-diabetic Regimen: * metformin 1000 mg PO BID * A1c = 6.5 % 07/23/2011 Risk Factors for Insulin Resistance: * Steroids: dexamethasone 12 mg IV intraoperatively (confirmed via anesthesia record), dexamethasone 6 mg IV q8 x 3 doses * Recent Surgery: lumbar decompression surgery, POD 0 * Diet: type 2 diabetes diet Assessment & Plan ASSESSMENT: * ADA & AACE recommend a goal blood sugar range 140-180 mg/dl for the majority of critically ill & non-critically ill patients. However, more stringent targets may be selected in individual cases. Will utilize more stringent goal of 100-140mg/dl based on patient age & comorbidities. Additionally, tighter glycemic control is warranted to facilitate wound healing and to prevent infection. * Mr Upton is a 61 y/o M with what appears to be well controlled diabetes. He is only on metformin 1000 mg PO BID at home. This will be held post-surgery until kidney function is assessed and good oral intake is established. Will slate the metformin to start POD 2 at home dose. * Due to the amount of dexamethasone received intraoperatively and post- operatively, aggressive dosing of Lantus will be utilized. A one time dose of Lantus 10 units was given after surgery with an additional 10 units given at bedtime. (This approximates what a stress of 3 and weight based dosing would recommend). A Lantus scale will be given tomorrow morning as the effects of dexamethasone will start to decrease. No Lantus is scheduled for afterwards as it the hyperglycemic effects of dexamethasone typically dissipate by then. * A strong correction factor and carbohydrate ratio will be added (mimics weight based dose with a stress of 2) due to the use of steroids. Carbohydrate ratio will be removed when metformin is started. PLAN FOR INPATIENT GLYCEMIC CONTROL: * Holding outpatient oral diabetes medications until POD #2 then restart metformin 1000 mg PO BID * Basal insulin with LANTUS 10 units x 1 after surgery then again at bedtime; Lantus 5-10 units (5 units for blood sugar under 140 mg/dL and 10 units for 140 mg/dL and above) * Correctional Insulin with NOVOLOG per scale ACHS * Goal Range: Low 100 mg/dL - High 140 mg/dL * Correction Factor: 30 mg/dL/unit * Nutritional / Prandial insulin per carb ratio of 1 unit per 10 grams CHO consumed * Please note that the plan above was derived based on current level of insulin resistance and hospital stress. These recommendations are appropriate for inpatient admission only. Plan of care upon discharge will need to be reassessed to avoid potential outpatient hypo/hyperglycemia. Thank you.
[2016-06-25] MEDS ORDERED: RXC5 PO (14:22)
--- NOTE | 2016-06-25 14:22 | Discharge Instructions ---
Discharge Instructions Date of Service Jun 25, 2016. Admission Reason for Admission: Lumbar Spinal Stenosis Discharge Discharge Diagnosis / Problem: stenosis Discharge Goals Goal(s): Improve function Activity Recommendations Activity Limitations: per Instructions/Follow-up section . Instructions / Follow-Up Instructions / Follow-Up ACTIVITY RECOMMENDATIONS: SELF CARE INSTRUCTIONS AFTER THORACIC/LUMBAR FUSIONS 1. You may walk to your tolerance. It is good exercise for your legs and back. Expect some back and intermittent leg aches and pains. 2. You may perform "counter-top" level activities (make a sandwich, moises with a project, etc.). 3. No bending or lifting of more than 10 pounds or back twisting of any nature (roll like a log when turning in bed). 4. You may ride in a car for 20-30 minutes at a time. No driving until after your first visit with your doctor. 5. Frequent changes of position and restricting sitting to 30 minutes at a time will help limit the amount of back spasms and stiffness you may experience. 6. You may discontinue the use of ambulatory aids (cane, crutches, etc.) once your strength and confidence allow. 7. You may stone polisher machine the shower and let water strike your incision when you arrive home at least once daily. Do not take a tub bath, sit in a hot tub or go into a swimming pool until after your first recheck in the office. SPECIAL CARE INSTRUCTIONS: VERY IMPORTANT TO READ AND REVIEW A. Your surgical incision has been closed with a cosmetic suture under the skin that will dissolve in about 6 weeks. In 14 days, you can use a pair of clean scissors and cut the suture that is left outside of the skin at the ends of your incision. 1. The small skin tapes can be removed 7 days after surgery if they have not fallen off by that point. 2. You may keep the wound open to air as much as possible to promote healing after post-op day number 5 unless told otherwise by your doctor. 3. If you think the wound looks like it is becoming infected (redness or worsening drainage) and/or you are experiencing fever, chill or worsening back pain and muscle spasms, contact the office so that we may evaluate you as soon as possible. B. Complications are uncommon, but please contact us if you have any signs or symptoms of: 1. wound infection (fever higher than 102.5 degrees F, redness, separation of wound, drainage, or increasing pain from the incision) 2. blood clots in legs (pain, swelling, redness and warmth in legs) 3. urinary tract infection (fever higher than 102.5 degrees F, burning upon urination or increased frequency of urination) 4. nerve problems (inability to walk on your toes or heels, numbness, loss of bowel or bladder control) 5. any other symptoms that concern you C. Please call the office at if you have any concerns or questions about your operation or recovery. D. No smoking! Smoking drastically decreases the chance of a solid fusion. E. Do not take any anti-inflammatory medications (Indocin, Advil, Motrin, Aspirin, Naprosyn, etc.) as these may inhibit the chance of a solid fusion. Tylenol is okay to take for pain. MANAGING PAIN AFTER SPINAL SURGERY 1. Narcotic medication is intended for short-term use and will be provided for surgical pain. Surgical pain usually lasts for a period of 4-6 weeks. Narcotic medication includes Percocet, Vicodin, Darvocet, Tylenol #3 or Lortab. 2. Longer-term pain is more appropriately treated with non-narcotic medication such as Tylenol ES. 3. Muscle spasm is not appropriately treated with narcotics. Muscle relaxers such as Soma, Flexeril or Skelaxin can be used along with Tylenol ES. 4. Remember that we all live with some "aches and pains". This is not unusual or uncommon after an injury or as we get older. a. Back pain is expected and may include muscle spasms for 4 to 6 weeks after surgery. The pain should gradually improve. If the pain worsens for no apparent reason, please contact the office. b. Intermittent leg pain may also be experienced and should not be concerned about unless it worsens for no apparent reason. If so, please contact the office. 5. We will provide appropriate medication within the normal guidelines of their prescribed use. We will also be very cautious and aware of potential abuse and extended duration of patients' medication needs. a. Pain medications are for your comfort and to assist with sleep and rest so that the tissue can heal. They are not provided in order to return to normal activity and should not be used through the day. To do so or worsening pain at night can result from ongoing tissue damage and development of tolerance to the prescribed medicine. 6. Please allow 2-3 days to process refills. Prescriptions will not be mailed but must be picked up at the office. FOLLOW UP VISIT: Keep your scheduled follow-up appointment. Any questions, please call the office at . Current Hospital Diet Patient's current hospital diet: Diabetes Type 2 Diet Discharge Diet Recommended Diet: Regular Diet Procedures Procedures Performed: L3-L5 Posterior Lumbar Decompression, Fusion with Pedicle Screw Fixation, Interbody Fusion with Placement of Interbody Device L4-L5, Application of Ramona Allograft, Bone Morphogenetic Protein Pending Studies Studies pending at discharge: no Medical Emergencies . Who to Call and When: Medical Emergencies: If at any time you feel your situation is an emergency, please call 911 immediately. . Non-Emergent Contact Non-Emergency issues call your: Primary Care Provider . "Provider Documentation" section prepared by Chip Lynne. . VTE Core Measure Inpt VTE Proph given/why not?: Mitch Sharp, [facility]
[2016-06-25] MEDS: HYDROmorphone HCL 0.5MG/ML 50 ML CASSETTE IV PRN ×2 (14:52→22:54)
[2016-06-25] MEDS: CEFAZOLIN IV 2,000 MG in DEXTROSE 5% 50ML 50 ML IV SCH ×2 (15:55→23:54)
[2016-06-25] MEDS ORDERED: INSULIN GLARGINE SOLOSTAR 100 UNITS/ML 3 ML PEN SC SCH (21:00)
[2016-06-25] MEDS: DOCUSATE SODIUM/SENNA 50/8.6MG TAB PO SCH (21:19)
[2016-06-26 03:20] VITALS: BP 113/67; PULSE 83; TEMP 36.8; O2SAT 99
[2016-06-26] MEDS: DEXAMETHASONE INJ 6 MG in SYRINGE 0 ML IV SCH (04:37)
[2016-06-26] MEDS ORDERED: DC PCA SCH (06:00)
[2016-06-26] MEDS ORDERED: HYDROmorphone INJ 0.5 MG/0.5 ML SYR IV PRN (06:00)
[2016-06-26] MEDS ORDERED: OXYCODONE HCL IR 5 MG TAB (IMMEDIATE RELEASE) PO PRN (06:00)
[2016-06-26] MEDS ORDERED: NURSING DECISION MEDICATION ORDER SCH (06:15)
[2016-06-26 06:37] LABS: HEMATOCRIT 35.2 % (42-52); MEAN CELL VOLUME 88.2 fL (80-100); MEAN CORPUSCULAR HEMOGLOBIN 30.3 pg (25-34); MEAN CORPUSCULAR HGB CONC 34.4 g/dl (32-36); MEAN PLATELET VOLUME 9.3 fL (7.4-10.4); PLATELET COUNT 305 K/uL (130-400); RED BLOOD COUNT 3.99 M/uL (4.7-6.1); WHITE BLOOD COUNT 16.47 K/uL (4.8-10.8)
[2016-06-26 07:09] LABS: COMPLETE YES; IG% 0.2 %; LYMPH % 7.7 %; LYMPH ABS # 1.27 K/uL (1.2-3.4); NEUT % 87.1 %
[2016-06-26 07:12] LABS: BUN/CREATININE RATIO 23.3 (10-20); CALCIUM 8.7 mg/dl (8.5-10.1); CREATININE 0.58 mg/dl (0.60-1.40); POTASSIUM 4.2 mmol/L (3.5-5.1)
[2016-06-26 07:50] LABS: ESTIMATED AVERAGE GLUCOSE 283 mg/dl; HA1C FLAG Normal (Normal)
--- NOTE | 2016-06-26 08:08 | Anesthesiology Progress Note ---
Anesthesia Post Op Note Date & Time Jun 26, 2016 at 08:07 Vital Signs Pain Intensity: 3.0 Vital Signs Past 12 Hours Date Time Temp Pulse Resp B/P Pulse Ox O2 Delivery O2 Flow Rate FiO2 06/26/16 07:40 Room Air 06/26/16 03:20 36.8 83 16 113/67 99 Room Air 06/25/16 23:40 Room Air 06/25/16 23:15 36.8 87 16 134/71 98 Room Air Notes Mental Status: alert / awake / arousable, participated in evaluation Pt Amnestic to Procedure: Yes Nausea / Vomiting: adequately controlled Pain: adequately controlled Airway Patency, RR, SpO2: stable & adequate BP & HR: stable & adequate Hydration State: stable & adequate Anesthetic Complications: no major complications apparent
[2016-06-26 08:21] VITALS: BP 122/68; PULSE 80; TEMP 36.7; O2SAT 96
[2016-06-26] MEDS: BUMETANIDE 1 MG TAB PO SCH (08:52)
[2016-06-26] MEDS: INSULIN ASPART 100 UNITS/ML 3 ML PEN SC SCH ×4 (08:54→22:28)
[2016-06-26] MEDS: INSULIN GLARGINE SOLOSTAR 100 UNITS/ML 3 ML PEN SC SCH (08:55)
--- NOTE | 2016-06-26 11:16 | Pharmacy Progress Note ---
Glycemic Control: Progress Nt Date of Service Jun 26, 2016. Scope Glycemic Pharmacist consulted by Dr Lynne on 06/25/16 for glycemic control and to write orders per [facility] inpatient glycemic control protocol. Objective Accuchecks BSG (last 24hrs): Test 06/25/16 11:55 06/25/16 17:22 06/25/16 20:48 06/26/16 06:11 Bedside Glucose 210 mg/dl (70-99) 239 mg/dl (70-99) 200 mg/dl (70-99) Random Glucose 159 mg/dl (70-99) Test 06/26/16 08:08 Bedside Glucose 185 mg/dl (70-99) Laboratory Data (last 24hrs) Test 06/26/16 06:11 Anion Gap 6.0 mmol/L BUN/Creatinine Ratio 23.3 Blood Urea Nitrogen 14 mg/dl Creatinine 0.58 mg/dl Hemoglobin A1c 11.5 % Potassium Level 4.2 mmol/L Sodium Level 140 mmol/L White Blood Count 16.47 K/uL Red Blood Count 3.99 M/uL Hemoglobin 12.1 g/dL Hematocrit 35.2 % Mean Corpuscular Volume 88.2 fL Mean Corpuscular Hemoglobin 30.3 pg Mean Corpuscular Hemoglobin Concent 34.4 g/dl Platelet Count 305 K/uL Mean Platelet Volume 9.3 fL Neutrophils (%) (Auto) 87.1 % Lymphocytes (%) (Auto) 7.7 % Monocytes (%) (Auto) 5.0 % Eosinophils (%) (Auto) 0.0 % Basophils (%) (Auto) 0.0 % Neutrophils # (Auto) 14.34 K/uL Lymphocytes # (Auto) 1.27 K/uL Monocytes # (Auto) 0.82 K/uL Eosinophils # (Auto) 0.00 K/uL Basophils # (Auto) 0.00 K/uL HbA1c: Test 06/26/16 06:11 Hemoglobin A1c 11.5 %(4.5-5.6) H Recent Pertinent Medications Outpatient Anti-diabetic Regimen: * metformin 1000mg PO BID * A1c = 11.58 % 06/26/16 The patient is currently receiving: * Basal insulin: Lantus 10 units every 12 hours o 06/25, then 10 units SQ q24 H starting today * Correctional Insulin: NovoLog Correction per scale ACHS Goal Range: Low 100 mg/dL - High 140 mg/dL Correction Factor: 30 mg/dL/unit * Prandial insulin: Per carb ratio of 1 unit per 10 grams CHO consumed * Oral Agents: metformin 1000mg PO BID with meals starting 06/27 Risk Factors for Insulin Resistance: * Steroids: DXM 12mg x1 in OR, then DXM 6mg IV q8H x3 doses (to complete course this AM) * Infection: cefazolin perioperatively * Recent Surgery: POD #1, lumbar decompression * Diet: T2DM Assessment & Plan ASSESSMENT: * ADA & AACE recommend a goal blood sugar range 140-180 mg/dl for the majority of critically ill & non-critically ill patients. However, more stringent targets may be selected in individual cases. Will utilize more stringent goal of 100-140mg/dl based on patient age & comorbidities. Additionally, tighter glycemic control is warranted to facilitate wound healing and to prevent infection. 06/26/16 * Mr Upton was diagnosed with T2DM about two weeks ago and has been improving his diet and lifestyle since that time (and has seen a decrease in A1c per his spouse). * likely, additional antidiabetic agents will be required at discharge for A1c >10%, however insulin may not be required as we have not yet seen the extent of the lifestyle modifications and metformin. * Currently, we want to maintain aggressive glycemic control postoperatively * continue basal and bolus insulins and begin to titrate when BSGs trend downward * metformin to be resumed tomorrow AM PLAN FOR INPATIENT GLYCEMIC CONTROL: * Continue Lantus 10 units BID * less than weight based dosing, but may be adequate as steroids are complete now * decreased to only daily starting 06/27 as dexamethasone affects wanes * Continue NovoLog SQ AC// * Correction factor: 30mg/dL/unit * Carb ratio: 1 unit per 10 g of CHO consumed (may be able to remove once metformin started) * Goal: 100-140mg/dL as above * Metformin 1000mg PO BID w/ meals starting 06/27 * A1c - added to discharge instructions RECOMMENDATIONS FOR DISCHARGE: * Continue metformin 1000mg PO BID * May consider additional oral agents (sulfonylurea) for improved glycemic control post-operatively * follow up with PCP/endocrine after discharge * Please note that the plan above was derived based on current level of insulin resistance and hospital stress. These recommendations are appropriate for inpatient admission only. Plan of care upon discharge will need to be reassessed to avoid potential outpatient hypo/hyperglycemia. Thank you.
[2016-06-26 11:24] VITALS: BMI 25.6
[2016-06-26 12:00] VITALS: BP 132/87; PULSE 79; TEMP 36.7; O2SAT 99
[2016-06-26] MEDS: HYDROmorphone INJ 1 MG/ML SYR IV PRN ×2 (12:33→22:33)
--- NOTE | 2016-06-26 13:19 | PROGRESS NOTE ---
DATE: 06/26/2016 DATE: 06/26/2016. SUBJECTIVE: Postop day 1. Back pain is controlled. Leg pain improved. Vital signs stable. T-max 36.8. TOPHER drained 80 mL today. Hematocrit stable at 35.2. OBJECTIVE: On exam the patient is ambulating halls, appears comfortable. ASSESSMENT: Status post lumbar decompression and fusion. PLAN: At this time, will continue to progress with therapy, advance his bowel regimen and anticipate home this weekend with home health.
[2016-06-26 15:31] VITALS: BP 125/75; PULSE 84; TEMP 36.7; O2SAT 100
[2016-06-26] MEDS ORDERED: INSULIN GLARGINE SOLOSTAR 100 UNITS/ML 3 ML PEN SC SCH (21:00)
[2016-06-26] MEDS: DOCUSATE SODIUM/SENNA 50/8.6MG TAB PO SCH (22:24)
[2016-06-26 23:02] VITALS: BP 121/67; PULSE 86; TEMP 37; O2SAT 100
[2016-06-27] MEDS ORDERED: INSULIN ASPART 100 UNITS/ML 3 ML PEN SC SCH (02:00)
[2016-06-27 04:07] VITALS: BP 117/67; PULSE 87; TEMP 37.1; O2SAT 99
[2016-06-27] MEDS: HYDROmorphone INJ 1 MG/ML SYR IV PRN ×2 (04:12→10:09)
[2016-06-27] MEDS: POLYETHYLENE (MIRALAX) 17 GM PACK PO SCH ×2 (05:34→11:17)
[2016-06-27 08:00] VITALS: BP 137/78; PULSE 82; TEMP 36.9; O2SAT 98
[2016-06-27] MEDS: BUMETANIDE 1 MG TAB PO SCH (08:44)
[2016-06-27] MEDS: METFORMIN HCL 500 MG TAB PO SCH ×2 (08:44→18:18)
[2016-06-27] MEDS: INSULIN ASPART 100 UNITS/ML 3 ML PEN SC SCH ×4 (08:48→21:28)
[2016-06-27] MEDS: INSULIN GLARGINE SOLOSTAR 100 UNITS/ML 3 ML PEN SC SCH (08:49)
[2016-06-27 11:38] VITALS: Ht 170.2 cm; Wt 74.1 kg
[2016-06-27] MEDS ORDERED: HYDROCODONE/ACETAMOPHEN 5/325MG TAB PO PRN (11:45)
--- NOTE | 2016-06-27 11:50 | Pharmacy Progress Note ---
Glycemic Control: Progress Nt Date of Service Jun 27, 2016. Scope Glycemic Pharmacist consulted by Dr Lynne on 06/25/16 for glycemic control and to write orders per [facility] inpatient glycemic control protocol. Objective Accuchecks BSG (last 24hrs): Test 06/26/16 11:53 06/26/16 17:03 06/26/16 21:06 06/27/16 01:43 Bedside Glucose 208 mg/dl (70-99) 164 mg/dl (70-99) 166 mg/dl (70-99) 122 mg/dl (70-99) Test 06/27/16 08:18 Bedside Glucose 133 mg/dl (70-99) HbA1c: Test 06/26/16 06:11 Hemoglobin A1c 11.5 % (4.5-5.6) H Recent Pertinent Medications Outpatient Anti-diabetic Regimen: * Metformin 1000mg PO BID - started ~2 wks prior to admission * A1c = 11.5 % 06/26/16 The patient is currently receiving: * Basal insulin: Lantus SQ Q AM; 5 units if BSG less than 140; 10 units if BSG 140 or greater * Correctional Insulin: Novolog Correction per scale ACHS + 0200 Goal Range: Low 100 mg/dL - High 140 mg/dL Correction Factor: 30 mg/dL/unit * Prandial insulin: Per carb ratio of 1 unit per 10 grams CHO consumed * Oral Agents: Metformin 1gm PO BID Risk Factors for Insulin Resistance: * Steroids: Last dose of dexamethasone IV given 06/26 @ ~0400 * Infection: n/a * Pressors: n/a * IVF: being diuresed * Recent Surgery: POD # 3 s/p lumbar decompression * Diet: ordered T2DM diet and tolerating well * Mechanical Ventilation: n/a Assessment & Plan ASSESSMENT: 06/26/16 * Mr Upton was diagnosed with T2DM about two weeks ago and has been improving his diet and lifestyle since that time (and has seen a decrease in A1c per his spouse). * likely, additional antidiabetic agents will be required at discharge for A1c >10%, however insulin may not be required as we have not yet seen the extent of the lifestyle modifications and metformin. * Currently, we want to maintain aggressive glycemic control postoperatively * continue basal and bolus insulins and begin to titrate when BSGs trend downward * metformin to be resumed tomorrow AM 06/27/16 * Fasting BSG 133 this AM w/ 20 units of Lantus on board * Basal insulin dose was titrated down yesterday in anticipation of improving insulin sensitivity as dexamethasone was d/c'd * Metformin restarted this AM - would anticipate effects on fasting/post- prandial BSGs in the next few days, somewhat slow onset * Insulin sensitivity appears to be improving based upon BSG pattern, will lessen prandial insulin dose a little however given A1c results and metformin monotherapy I do anticipate the potential need for some prandial insulin while hospitalized for optimal control post-op PLAN FOR INPATIENT GLYCEMIC CONTROL: * Continuing Lantus 5 units SQ Q AM * Continuing correction factor of 30 mg/dl/unit * Changing carb ratio to 1 unit per 13 grams CHO consumed * Continuing goal range of Low 100 mg/dL - High 140 mg/dL RECOMMENDATIONS FOR DISCHARGE: * * Please note that the plan above was derived based on current level of insulin resistance and hospital stress. These recommendations are appropriate for inpatient admission only. Plan of care upon discharge will need to be reassessed to avoid potential outpatient hypo/hyperglycemia. Thank you.
[2016-06-27] MEDS: HYDROCODONE/ACETAMOPHEN 5/325MG TAB PO PRN ×3 (13:02→22:28)
--- NOTE | 2016-06-27 14:54 | PROGRESS NOTE ---
DATE: 06/27/2016 Postop day #2. Back pain is controlled. Leg pain improved. Vital signs stable. T max 37.1. TOPHER drained 115 mL today. Hematocrit 35.2. On exam, he is ambulating in the halls, has good strength to testing. ASSESSMENT: Status post lumbar decompression and fusion. PLAN: At this time, we will maintain the TOPHER drain until tomorrow morning. Anticipate home with home health.
[2016-06-27 15:46] VITALS: BP 114/76; PULSE 92; TEMP 37; O2SAT 100
[2016-06-27] MEDS ORDERED: NURSING VERBAL MED ORDER ONE (18:30)
[2016-06-27] MEDS: DOCUSATE SODIUM/SENNA 50/8.6MG TAB PO SCH (21:24)
[2016-06-27 22:57] VITALS: BP 124/80; PULSE 84; TEMP 36.9; O2SAT 98
[2016-06-28] MEDS: HYDROCODONE/ACETAMOPHEN 5/325MG TAB PO PRN ×3 (02:32→10:45)
[2016-06-28 07:45] VITALS: BP 126/74; PULSE 82; TEMP 36.8; O2SAT 100
[2016-06-28] MEDS: METFORMIN HCL 500 MG TAB PO SCH (08:48)
[2016-06-28] MEDS: BUMETANIDE 1 MG TAB PO SCH (08:48)
[2016-06-28] MEDS: INSULIN ASPART 100 UNITS/ML 3 ML PEN SC SCH (08:49)
[2016-06-28] MEDS: INSULIN GLARGINE SOLOSTAR 100 UNITS/ML 3 ML PEN SC SCH (08:50)
[2016-06-28 09:49] VITALS: BP 125/76; PULSE 82; O2SAT 100
[2016-06-28 10:55] VITALS: BP 126/74; PULSE 82; TEMP 36.8; O2SAT 100
--- NOTE | 2016-06-28 11:39 | DISCHARGE SUMMARY ---
DATE OF DISCHARGE: 06/28/2016. HOSPITAL COURSE FOLLOWS: On 06/25/2016 the patient underwent lumbar decompression and fusion, tolerated this well and taken to the orthopedic floor postoperatively. Postop day #1, up and ambulatory, progressed to postop day #2. TOPHER drain decreased appropriately. Bowels were working well. Subsequently discharged home on postop day 3. Discharge orders and instructions can be found on the chart for further review.
[2016-09-01] MEDS ORDERED: HYDR2TAB48 PO (10:38)
[2016-09-01] MEDS ORDERED: OXYM1TAB PO (10:38)
== END 2016-06-28 12:21 | disposition home health service (06) | DRG 460 ==
LOC: ENRESERVTM → ENRESERVDT → C.ACU 05:46 → C.3E 07:00
PROVIDERS: ADMIT Orthopaedic Surgery Orthopaedic Surgery of the Spine; ATTEND Orthopaedic Surgery Orthopaedic Surgery of the Spine
PROC: 01NB0ZZ Release Lumbar Nerve, Open Approach (ICD-10-PCS; principal; 2016-06-25 07:45)
PROC: 0SG00AJ Fusion of Lumbar Vertebral Joint with Interbody Fusion Device, Posterior Approach, Anterior Column, Open Approach (ICD-10-PCS; principal; 2016-06-25 07:45)
PROC: 0SG1071 Fusion of 2 or more Lumbar Vertebral Joints with Autologous Tissue Substitute, Posterior Approach, Posterior Column, Open Approach (ICD-10-PCS; principal; 2016-06-25 07:45)
PROC: 0ST20ZZ Resection of Lumbar Vertebral Disc, Open Approach (ICD-10-PCS; principal; 2016-06-25 07:45)
DX: M48.06 Spinal stenosis, lumbar region (principal); M51.26 Other intervertebral disc displacement, lumbar region; E11.9 Type 2 diabetes mellitus without complications; Z80.1 Family history of malignant neoplasm of trachea, bronchus and lung

== ENCOUNTER 2016-08-12 14:22 | Inpatient (IN) | payer BC ==
[~2016-08-12] VITALS: Ht 170.2 cm; Wt 67.4 kg
[~2016-08-12 14:22] MED LIST changes: -OXYC-57 PO; +RXC5 PO
[2016-08-12 15:18] VITALS: BP 124/82; PULSE 112; TEMP 36.4; O2SAT 97
[2016-08-12 15:19] VITALS: BMI 23.3
[2016-08-12] MEDS ORDERED: ALUMINUM/MAGNESIUM/SIMETH (MAALOX MAX) 30 ML UDC PO PRN (16:00)
[2016-08-12] MEDS ORDERED: MAGNESIUM HYDROXIDE SUSP 30 ML UDC PO PRN (16:00)
[2016-08-12] MEDS ORDERED: ONDANSETRON INJ 2 MG/ML 2 ML VIAL IV PRN ×2 (16:00→16:15)
[2016-08-12] MEDS ORDERED: HYDROmorphone INJ 1 MG/ML SYR ONE (16:14)
[2016-08-12] MEDS ORDERED: HYDROmorphone INJ 0.5 MG/0.5 ML SYR IV PRN (16:15)
[2016-08-12] MEDS ORDERED: DEXAMETHASONE INJ 10 MG in SYRINGE 0 ML IV ONE (16:30)
[2016-08-12] MEDS ORDERED: POLYETHYLENE (MIRALAX) 17 GM PACK PO PRN (16:30)
[2016-08-12 16:42] LABS: BASO % 0.5 %; BASO ABS # 0.05 K/uL (0-0.2); EOS % 0.9 %; HEMATOCRIT 38.8 % (42-52); IG% 0.2 %; LYMPH % 32.5 %; LYMPH ABS # 3.38 K/uL (1.2-3.4); MEAN CELL VOLUME 86.8 fL (80-100); MEAN CORPUSCULAR HEMOGLOBIN 30.6 pg (25-34); MEAN PLATELET VOLUME 9.1 fL (7.4-10.4); MONO % 7.8 %; NEUT % 58.1 %; PLATELET COUNT 434 K/uL (130-400); RED BLOOD COUNT 4.47 M/uL (4.7-6.1); WHITE BLOOD COUNT 10.41 K/uL (4.8-10.8)
[2016-08-12] MEDS ORDERED: GLUCOSE 10 TABS/TUBE PO PRN (16:45)
[2016-08-12] MEDS ORDERED: DEXTROSE 50% 50 ML SYR IV PRN (16:45)
[2016-08-12] MEDS ORDERED: GLUCAGON FOR INJ 1 MG VIAL SQ PRN (16:45)
[2016-08-12] MEDS ORDERED: GLUCOSE 40% GEL 15 GM TUBE PO PRN (16:45)
[2016-08-12 16:47] LABS: COMPLETE YES; MEAN CORPUSCULAR HGB CONC 35.3 g/dl (32-36)
[2016-08-12] MEDS ORDERED: OXYC7.5T66 PO (16:50)
--- NOTE | 2016-08-12 16:52 | History and Physical ---
History & Physical Date & Time of Service: Aug 12, 2016 at 16:22 Chief Complaint: Left Lower Extremity Weakness Primary Care Physician: Osmin Betancur M.D. History of Present Illness Source: patient, family ( and mother at bedside), hospital records This is a 61 y/o male with a history of lumbar stenosis, radiculopathy, DM II, and lower extremity edema who presented for a direct admission from Dr. Betancur's office on 08/12 with left lower extremity weakness and pain. The patient complains of constant pain and weakness in the left lower extremity that has been going on for 4 months. The patient had an MRI of the lumbar spine in April 2016 which showed bulges in L3 to L5 with minor spinal canal narrowing. The patient had a L3 to L5 decompression and fusion on 06/25/[address] Lynne. He states that although the surgery improved his back pain, his leg pain and weakness has remained the same and has been getting progressively worse. He complains of severe aching pain that goes down his entire left lower extremity. Pain is sometimes sharp or can feel like burning and is often accompanied with numbness and tingling. The pain is exacerbated by certain movements, changes in position, weightbearing, or too much exertion. The pain is slightly dulled when he takes Percocet. The patient states that the pain is constant and has not been sleeping properly for months. At rest the patient currently rates his pain as a 7/10 aching pain. The patient states that he has no strength at all in his left lower extremity, and he also notes less severe weakness in his right lower extremity. The patient uses a walker to get around. The patient denies fevers, chills, sweats, chest pain, palpitations, claudication, cough, wheezing, shortness of breath, nausea, vomiting, abdominal pain, dysuria, hematuria, urinary retention, and paralysis. Past Medical/Surgical History Medical Problems: (1) Carpal tunnel syndrome Status: Chronic Lumbar stenosis w/radiculopathy S/p L3-L5 decompression and fusion 06/25/16 DM II Lower extremity edema Family History Cancer Diabetes mellitus Heart disease Hypertension Lung disease Social History Smoking Status: Never Smoker Smokeless Tobacco Use: No Alcohol Use: none Drug Use: none Marital Status: Housing status: lives with significant other Occupational Status: disabled Immunizations History of Pneumococcal: Yes Multi-Drug Resistant Organisms History of MDRO: No Allergies Coded Allergies: Codeine (Verified Adverse Reaction, Mild, VOMITTING, 06/25/16) Gabapentin (Verified Adverse Reaction, Unknown, SPEECH AND MEMORY PROBLEMS , 06/25/16) Pregabalin (Verified Adverse Reaction, Unknown, FELT DROWSY AND FORGOT THINGS, 06/25/16) Home Medications Scheduled Bumetanide (Bumex), 1 MG PO QAM Metformin Hcl (Glucophage), 1,000 MG PO BID Multiple Vitamins W/ Minerals (Mens 50+ Multi Vitamin &), 1 TAB PO QAM Scheduled PRN Oxycodone/Acetaminophen 7.5MG/325MG (Oxycodone/Acetaminophen 7.5MG/325MG), 1 TAB PO Q4H PRN for Pain Review of Systems Constitutional: No fever, No chills, No sweats Eyes: No worsening of vision, No eye pain, No diplopia ENT: No hearing loss, No sore throat, No trouble swallowing Respiratory: No cough, No wheezing, No shortness of breath Cardiovascular: No chest pain, No claudication, No palpitations Abdomen: No pain, No nausea, No vomiting Musculoskeletal: + joint pain, + muscle pain, No swelling Genitourinary - Male: No hematuria, No dysuria, No urinary incontinence Neurologic: + weakness (lower extremities L>R), + numbness/tingling, No paralysis Integumentary: No rash, No itch, No color change Physical Exam Vital Signs Date Time Temp Pulse Resp B/P (MAP) Pulse Ox O2 Delivery O2 Flow Rate FiO2 08/12/16 15:18 36.4 112 18 124/82 (96) 97 Room Air General Appearance: WD/WN, no apparent distress Head: normocephalic, atraumatic Eyes: normal inspection, PERRL, EOMI ENT: normal ENT inspection, hearing grossly normal, pharynx normal Neck: supple, no JVD, trachea midline Respiratory/Chest: lungs clear, normal breath sounds, no respiratory distress Cardiovascular: regular rate, rhythm, no gallop, no murmur Abdomen/GI: normal bowel sounds, non tender, soft Extremities/Musculoskelatal: normal inspection, no pedal edema, + pertinent finding (left lower extremity TTP) Neurologic/Psych: alert, normal mood/affect, oriented x 3, + motor weakness (0/ 5 strength LLE, 2/5 strength RLE), + pertinent finding (sensation intact) Skin: normal color, warm/dry, no rash Diagnostics Laboratory Results Results Past 24 Hours Test 08/12/16 16:14 Range/Units Impression Assessment and Plan 61 y/o male with a history of lumbar stenosis, radiculopathy, DM II, and lower extremity edema who presented for a direct admission from Dr. Betancur's office on 08/12 with left lower extremity weakness and pain. Lumbar MRI 05/03/16 showed L3- L5 circumferential bulges with mild spinal canal narrowing. Pt s/p L3-L5 decompression and fusion on 06/25/16 at [facility] with Dr. Lynne. Pt reports left leg weakness/pain did not improve following surgery and has actually gotten worse. Lower extremity weakness/pain, h/o lumbar stenosis s/p decompression and fusion as above--concern for paraspinal hematoma or abscess -Admit to med/surg -Consult Dr. Lynne, appreciate recs -STAT lumbar spine MRI with contrast -STAT CBC w/diff and PRP. Consider empiric abx if WBC elevated -Decadron 10 mg IV x 1 loading dose, then 4 mg IV q6h -Dilaudid 0.5-1.0 mg IV q2h prn pain Diabetes mellitus type 2--last HgbA1c checked 06/26/16 was 11.5 -Hold metformin -Insulin sliding scale -Check BSGs q ac and qhs Lower extremity edema--pt states this began after his surgery in June, den h /o CHF -Continue Bumex 1 mg PO qd GI prophylaxis -Maalox Max 15 mL PO q4h prn dyspepsia -Milk of magnesia 30 mL PO q6h prn constipation -Miralax 17 gm PO qd prn constipation -Zofran 4 mg IV q6h prn nausea DVT prophylaxis -Enoxaparin 40 mg SC q24h -CHANO Morris Code Status -Level I, FULL RESUSCITATION STATUS Level of Care Med/Surg Resuscitation Status FULL RESUSCITATION VTE Prophylaxis VTE Risk Assessment Done? Y/N: Yes Risk Level: Moderate Given or contraindicated: Enoxaparin (Lovenox)SQ, T.E.D. Stockings, SCD's Assessment and Plan Attending Addendum: I have physically seen and examined this patient, directed their medical care, supervised the Physician Yarder Puncher's activity, and agree with the H&P as noted above, with the following changes: NONE.
[2016-08-12] MEDS: NSS + 20MEQ KCL 1000ML 1,000 ML IV SCH (16:53)
[2016-08-12 17:03] LABS: INR 0.9 (0.9-1.1); PROTHROMBIN TIME (PATIENT) 9.9 SECONDS (9.0-12.0)
[2016-08-12 17:14] VITALS: O2SAT 97; BMI 23.3
[2016-08-12 17:33] LABS: BUN/CREATININE RATIO 19.5 (10-20); CALCIUM 8.9 mg/dl (8.5-10.1); CREATININE 0.81 mg/dl (0.60-1.40); POTASSIUM 3.8 mmol/L (3.5-5.1)
[2016-08-12] MEDS: HYDROmorphone INJ 1 MG/ML SYR IV PRN (21:18)
[2016-08-12] MEDS ORDERED: GADAVIST IV PRN (21:30)
[2016-08-12] MEDS: DEXAMETHASONE INJ 4 MG in SYRINGE 0 ML IV SCH (21:41)
[2016-08-12] MEDS: ENOXAPARIN 40 MG/0.4 ML SYR SQ SCH (21:41)
--- NOTE | 2016-08-12 21:44 | DIAGNOSTIC IMAGING REPORT ---
MRI OF THE LUMBAR SPINE COMBO CLINICAL HISTORY: Left leg pain. Left groin pain. History of back surgery. COMPARISON STUDY: Abdominal CT dated 04/23/2014. TECHNIQUE: MRI of the lumbar spine is performed utilizing various T1 and T2-weighted sequences in the axial and sagittal planes. Contrast-enhanced images were acquired following the IV administration of 6.5 cc of Gadavist. The examination is degraded by susceptibility artifact from metallic orthopedic hardware. FINDINGS: Lumbar spine: Vertebral body height and alignment are maintained throughout the lumbar spine. There are postoperative changes from laminectomy and posterior fusion seen from L3 to L5. The orthopedic hardware is grossly intact. Interpedicular screws are present at all levels. Chronic degenerative endplate change is seen at all levels. Mild endplate edema is identified at L4-L5. Small anterior osteophytes are seen throughout. No destructive bony lesion is clearly identified. A Schmorl's node is seen in the inferior endplate of L2. Intervertebral discs: There is evidence of discectomy at L4-L5. Degenerative disc desiccation is seen at the remaining lumbar levels. There is moderate loss of height at L3-L4. Mild loss of height is seen at L2-L3. Spinal cord: The partially imaged spinal cord is normal in morphology and signal intensity. The conus medullaris terminates at the level of L1. The nerve roots of the cauda equina are normal in morphology. No abnormal enhancement is seen on the postcontrast images. L1-L2: There is minimal disc bulge. The central canal and neural foramina are patent. L2-L3: There is minimal disc bulge. The central canal and neural foramina are patent. L3-L4: There is minimal posterior disc bulge. The central canal and neural foramina are grossly patent. L4-L5: The central canal and neural foramina are grossly patent. L5-S1: The central canal and neural foramina are grossly patent. Soft tissues: There are postoperative changes seen posteriorly from L3 to L5. A minimally complex fluid collection posterior to the thecal sac at the operative level measures 5.6 x 2.0 x 2.5 cm and likely represents a seroma. There is no associated mass effect on the thecal sac. There is mild edema seen within the paraspinous musculature as well as fatty atrophy and nonspecific patchy enhancement. The iliopsoas musculature is normal as visualized. The partially imaged retroperitoneal structures are grossly normal, but incompletely evaluated. The partially imaged bladder wall appears trabeculated suggesting chronic outlet obstruction. Sacrum: Visualized sacrum is normal in morphology and signal intensity. IMPRESSION: 1. There are postoperative changes from L3 -L5 spinal fusion as above. 2. There is no disc herniation, central canal stenosis, or high-grade neural foraminal stenosis seen throughout the lumbar spine. 3. A postoperative fluid collection is identified posterior to the thecal sac as detailed above. This likely represents a postoperative seroma/liquefied hematoma. Superimposed infection would be impossible to exclude and clinical correlation will be required. 4. There is fatty atrophy of the paraspinous musculature with mild intramuscular edema and patchy nonspecific enhancement. This may simply represent postoperative change/granulation tissue. Clinical correlation will again be required. Dictated: 08/12/2016 9:18 PM Transcribed: 08/12/2016 9:44 PM Riv[place] Electronically signed by: Pelon Escudero M.D. 08/12/2016 9:48 PM Dictated Date/Time: 08/12/2016 9:18 PM
[2016-08-12] MEDS: INSULIN ASPART 100 UNITS/ML 3 ML PEN SC SCH (21:45)
[2016-08-12 23:49] VITALS: BP 149/92; PULSE 106; TEMP 37.1; O2SAT 96
[2016-08-13] VITALS (7 sets, daily range): BP systolic 119–148; BP diastolic 78–84; PULSE 95–112; TEMP 36.5–36.6; O2SAT 95–99
[2016-08-13] MEDS: HYDROmorphone INJ 1 MG/ML SYR IV PRN ×6 (01:55→19:51)
[2016-08-13] MEDS: NSS + 20MEQ KCL 1000ML 1,000 ML IV SCH ×3 (01:55→21:10)
[2016-08-13] MEDS: DEXAMETHASONE INJ 4 MG in SYRINGE 0 ML IV SCH ×4 (04:06→22:26)
[2016-08-13] MEDS: BUMETANIDE 1 MG TAB PO SCH (08:29)
[2016-08-13] MEDS: INSULIN ASPART 100 UNITS/ML 3 ML PEN SC SCH ×4 (08:35→21:09)
--- NOTE | 2016-08-13 08:50 | Hospitalist Progress Note ---
Hospitalist Progress Note Date of Service Aug 13, 2016. (Brigitte Melgoza PA-C) Subjective Pt evaluation today including: conversation w/ patient, conversation w/ family , physical exam, chart review, lab review, review of studies Pain: Mild, lower back PO Intake: Good Voiding: no voiding problems The patient was seen and examined this morning. Pts and mother are present at bedside. He reports his pain is well controlled today with pain regimen in place. Ortho spine has not yet been in to see the patient. He is eating well and without nausea/vomiting, passing gas and last bowel movement yesterday. Additional Comments: 6 point ROS negative other than listed per history of present illness (Brigitte Melgoza PA-C) Objective Vital Signs Date Time Temp Pulse Resp B/P (MAP) Pulse Ox O2 Delivery O2 Flow Rate FiO2 08/13/16 07:56 36.5 102 18 148/84 (105) 95 Room Air 08/13/16 00:00 Room Air 08/12/16 23:49 37.1 106 20 149/92 (111) 96 Room Air 08/12/16 20:00 Room Air 08/12/16 17:14 97 Room Air 08/12/16 15:18 36.4 112 18 124/82 (96) 97 Room Air (Brigitte Melgoza PA-C) Physical Exam Notes: General: awake, alert, no apparent distress, sitting up in bedside chair Head: Normocephalic, atraumatic ENT: PERRL, EOMI, no pharyngeal exudate, mucous membranes moist Chest: Clear to auscultation, on room air, no adventitious breath sounds Cardiac: Regular rate and rhythm, no murmur, no JVD, normal peripheral pulses, good capillary refill Abdominal: NABS x 4 quadrants, soft, nontender to palpation, no rebound, guarding or tenderness Extremities: Normal inspection, no peripheral edema or erythema, calfs nontender to palpation Back: Vertical incision overlying L2-4, appears well-healed. Psych: Normal mood and affect Neuro: AAO x 3, strength diminished, 3/5 in right lower extremity and 5/5 in left and related 5/5, speech is clear, no peripheral sensory deficits (Brigitte Melgoza PA-C) Laboratory Results Last 24 Hours Test 08/12/16 16:35 08/12/16 16:49 08/12/16 21:16 08/13/16 07:40 White Blood Count 10.41 K/uL Red Blood Count 4.47 M/uL Hemoglobin 13.7 g/dL Hematocrit 38.8 % Mean Corpuscular Volume 86.8 fL Mean Corpuscular Hemoglobin 30.6 pg Mean Corpuscular Hemoglobin Concent 35.3 g/dl Platelet Count 434 K/uL Mean Platelet Volume 9.1 fL Neutrophils (%) (Auto) 58.1 % Lymphocytes (%) (Auto) 32.5 % Monocytes (%) (Auto) 7.8 % Eosinophils (%) (Auto) 0.9 % Basophils (%) (Auto) 0.5 % Neutrophils # (Auto) 6.06 K/uL Lymphocytes # (Auto) 3.38 K/uL Monocytes # (Auto) 0.81 K/uL Eosinophils # (Auto) 0.09 K/uL Basophils # (Auto) 0.05 K/uL RDW Standard Deviation 39.6 fL RDW Coefficient of Variation 12.3 % Immature Granulocyte % (Auto) 0.2 % Immature Granulocyte # (Auto) 0.02 K/uL Prothrombin Time 9.9 SECONDS Prothromb Time International Ratio 0.9 Activated Partial Thromboplast Time 25.3 SECONDS Partial Thromboplastin Ratio 1.0 Sodium Level 140 mmol/L Potassium Level 3.8 mmol/L Chloride Level 104 mmol/L Carbon Dioxide Level 26 mmol/L Anion Gap 10.0 mmol/L Blood Urea Nitrogen 16 mg/dl Creatinine 0.81 mg/dl Est Creatinine Clear Calc Drug Dose 90.7 ml/min Estimated GFR () 112.0 Estimated GFR (Non- 96.6 BUN/Creatinine Ratio 19.5 Random Glucose 147 mg/dl Calcium Level 8.9 mg/dl Magnesium Level 1.6 mg/dl Bedside Glucose 143 mg/dl 255 mg/dl 228 mg/dl (Brigitte Melgoza PA-C) Assessment and Plan 61 y/o male with a history of lumbar stenosis, radiculopathy, DM II, and lower extremity edema who presented for a direct admission from Dr. Betancur's office on 08/12 with left lower extremity weakness and pain. Lumbar MRI 05/03/16 showed L3- L5 circumferential bulges with mild spinal canal narrowing. Pt s/p L3-L5 decompression and fusion on 06/25/16 at [facility] with Dr. Lynne. Pt reports left leg weakness/pain did not improve following surgery and has actually gotten worse. Lower extremity weakness/pain, h/o lumbar stenosis s/p decompression and fusion as above--concern for paraspinal hematoma or abscess -Consult Dr. Lynne, team has not yet been into see the patient, will await their bead of MRI and decision of whether or not fluid collection can be drained. - no leukocytosis, afebrile - Cont Decadron 4 mg IV q6h- noticed increased glucose likely secondary to IV steroids. - Analgesia with dilaudid 0.5-1.0 mg IV q2h prn pain - PT/OT consulted - lumbar spine MRI with contrast 08/12 IMPRESSION: 1. There are postoperative changes from L3 -L5 spinal fusion as above. 2. There is no disc herniation, central canal stenosis, or high-grade neural foraminal stenosis seen throughout the lumbar spine. 3. A postoperative fluid collection is identified posterior to the thecal sac as detailed above. This likely represents a postoperative seroma/liquefied hematoma. Superimposed infection would be impossible to exclude and clinical correlation will be required. 4. There is fatty atrophy of the paraspinous musculature with mild intramuscular edema and patchy nonspecific enhancement. This may simply represent postoperative change/granulation tissue. Clinical correlation will again be required. Diabetes mellitus type 2--last HgbA1c checked 06/26/16 was 11.5 - Holding metformin 1000 mg BID at time of admission, will restart tonight or tomorrow morning pending ortho spine recs. - Insulin sliding scale with accuchecks achs - glucose trending up, will tighten the scale until metformin reinitiated Lower extremity edema- - NO edema in peripheral LE, no pitting edema - pt states this began after his surgery in June, denies h/o CHF - Continue Bumex 1 mg PO qd GI ppx: - caution with decardron in place - Maalox Max 15 mL PO q4h prn dyspepsia, MOM 30 mL q6 prn, Miralax daily prn, DVT ppx: Lovenox daily, teds, scds CODE STATUS: Full code Disposition: From home, await ortho spine and PT/OT evals (Brigitte Melgoza, AMOS) Reviewed: Pt Seen/Exam by Me (Asia Dinero DO) History Pt is still with LE pain. No back pain. Tolerating PO without issue. Pt denies fever, SOB, chest pain, abd pain, n/v/c/d, LE swelling. ROS as noted above, otherwise neg. (Asia Dinero DO) General Appearance: WD/WN, no apparent distress Respiratory: normal breath sounds, no respiratory distress Cardiovascular: normal peripheral pulses, regular rate, rhythm Gastrointestinal: non tender, soft Extremities: non-tender, no pedal edema Neurologic/Psychiatric: alert, oriented x 3 Skin Characteristics: normal color, warm/dry (Asia Dinero DO) Assessment/Plan Agree with plan as outlined above MRI noted, ortho feels more of a narcotic related radicular pain issue Awaiting PM c/s Pt offered acupuncture, declined at this time (Asia Dinero DO)
--- NOTE | 2016-08-13 13:36 | ORTHOPEDIC CONSULTATION ---
DATE OF CONSULTATION: 08/13/2016 DATE OF CONSULTATION: 08/13/2016. CHIEF COMPLAINT: Left leg pain. HISTORY OF PRESENT ILLNESS: This is a 61-year-old male well known to me that presents with worsening leg pain. He is status post lumbar decompression and fusion approximately 6 weeks ago. He states he has at home and recently started a course that he felt was quite vigorous of physical therapy. This created worsening left leg pain. He denies any specific back pain. Denies any fevers and chills. As he is sitting during our discussion today he denies any radicular complaints or leg pain. PHYSICAL EXAMINATION: He has a negative log roll. He exhibits weakness when asking him to extend his left leg and activate his quadriceps; however, he was able to stand out of the chair without any assistance and without any gross difficulty. His incision is well healed. There is no erythema or drainage. Nontender to palpation. Does have some tenderness to palpation of the abductor musculature on the left. MRI performed 08/12/2016 at [facility] of the lumbar spine demonstrates evidence of a small seroma without any thecal encroachment at the decompressed levels. There is no evidence of any significant neural compression. ASSESSMENT: Status post lumbar decompression and fusion. PLAN: At this time, I believe his pain is multifactorial. We have struggled postoperatively weaning him from his narcotic requirements. I strongly suspect the majority of his symptom complex is almost narcotic induced pain syndrome. He is somewhat dependent. On top of this, the stress of the vigorous physical therapy may have actually pulled a muscle particularly in the adductor region. At this point, I recommend a consultation with pain management for guidance with pain pills and treatment plan as well as a consultation with physical therapy for ambulation and transfers. The patient understands and agrees.
[2016-08-13] MEDS ORDERED: METFORMIN HCL 500 MG TAB PO SCH (17:00)
[2016-08-13] MEDS: ENOXAPARIN 40 MG/0.4 ML SYR SQ SCH (21:08)
[2016-08-14] VITALS: O2SAT 99
[2016-08-14] MEDS: HYDROmorphone INJ 1 MG/ML SYR IV PRN ×3 (01:20→20:01)
[2016-08-14] MEDS: DEXAMETHASONE INJ 4 MG in SYRINGE 0 ML IV SCH ×2 (04:24→10:45)
[2016-08-14 07:33] VITALS: BP 136/82; PULSE 82; TEMP 36.6; O2SAT 98
[2016-08-14] MEDS: NSS + 20MEQ KCL 1000ML 1,000 ML IV SCH ×2 (07:33→18:16)
[2016-08-14] MEDS: ACETAMINOPHEN IV 100 ML IV PRN (07:34)
[2016-08-14] MEDS: BUMETANIDE 1 MG TAB PO SCH (08:11)
[2016-08-14] MEDS: METFORMIN HCL 500 MG TAB PO SCH ×2 (08:11→17:28)
[2016-08-14] MEDS: INSULIN ASPART 100 UNITS/ML 3 ML PEN SC SCH ×4 (08:13→20:49)
[2016-08-14] MEDS: BACLOFEN 10 MG TAB PO SCH ×3 (09:01→20:04)
[2016-08-14] MEDS: TAPENTADOL HCL 50 MG TAB PO PRN ×3 (09:02→22:04)
--- NOTE | 2016-08-14 09:46 | CONSULTATION REPORT ---
DATE OF CONSULTATION: 08/14/2016 CHIEF COMPLAINT: Left lower extremity pain and weakness, status post L3 through L5 lumbar decompression and fusion performed on 06/25/[address] Lynne. HISTORY OF PRESENT ILLNESS: Mr. Upton is a 61-year-old white male, who was admitted due to complaints of intractable pain in the left lower extremity as well as weakness. The patient has a prior history of low back and left lower extremity pain, who underwent an L3 through L5 lumbar decompression and fusion performed on 06/25/[address] Lynne. The patient is reporting resolution of axial low back pain, but denies any change in his left lower extremity pain since the time of the surgical procedure. The patient has been utilizing Percocet, hydrocodone as well as oxycodone in the outpatient setting since the time of discharge. He is a relatively poor historian and unable to report the frequency of use of his Percocet. The patient reported moderate relief of his discomfort with use of Percocet in the outpatient setting for approximately 3-4 hours. The patient indicates his pain is in the left groin, and medial thigh location, described as aching, aggravated with positional change, standing and ambulatory activity. The patient describes some paresthesias involving the foot in nondermatomal pattern, but denies pain radiating below the level of the knee. He denies a true radicular pattern to his complaints. He denies axial low back pain at this time. The patient is finding hydromorphone IV during his inpatient stay to be moderately efficacious for approximately 2-3 hours. He reports prior side effects from Lyrica as well as gabapentin, which caused "emotional side effects". He reports a generalized weakness sensation in the left lower extremity, but he denies footdrop or falling. The patient denies right lower extremity radicular pain. He has no bowel or bladder incontinence. The patient denies fevers, chills, night sweats or other constitutional complaints at this time. PAST MEDICAL HISTORY: 1. Diabetes mellitus-noninsulin dependent. 2. Lower extremity edema. 3. Lumbar spinal canal stenosis with radiculopathy. 4. Carpal tunnel syndrome. PAST SURGICAL HISTORY: L3 through L5 lumbar decompression and fusion 06/25/2016. SOCIAL HISTORY: The patient is , currently living with his . The patient is disabled. He denies tobacco, alcohol or illicit drug use. FAMILY HISTORY: Cancer, diabetes mellitus, heart disease, hypertension, lung disease. ALLERGIES: 1. CODEINE. 2. GABAPENTIN. 3. PREGABALIN. CURRENT MEDICATIONS: Reviewed extensively in EMR-refer for current listing. REVIEW OF SYSTEMS: The patient denies complaints related to cardiac, pulmonary, GI, , endocrine, neurologic, hepatic, renal, ENT, dermatologic, musculoskeletal other than described above in the HPI. PHYSICAL EXAMINATION: VITAL SIGNS: Temperature 36.6 degrees Celsius, pulse 82, respirations 20, BP 136/82, pulse oximetry 98 on room air. GENERAL: Mr. Upton is lying quietly upon entering the room, in no acute distress. The patient proceeded to put his hearing aids which made communication effective. He is awake, alert and oriented to time, person and place. His cognition was intact. He does have some difficulty with memory recall of events. BACK AND SPINE: Loss of lordosis. He has well-healed midline surgical incision over the mid and lower lumbar spine. He is nontender to palpation over the midline facet joints or SI joints. There is no evidence of paravertebral, quadratus lumborum or gluteal muscular spasm. LOWER EXTREMITIES: No visible atrophy is appreciated of the musculature. Strength testing was diminished on the left at a 4/5 when compared to the right at a 5/5 throughout with some guarding. The patient is tender over the abductor musculature to direct palpation extending into the inguinal region. Left hip is tender with internal and external rotation with slightly diminished range of motion when compared to the right. He is nontender over the greater trochanter. Sensation was intact without notable deficits. He has a slightly hyperalgesic response to light palpation in the medial gastroc region. His sensation appeared to be intact to sharp and dull. Straight leg raising was negative bilaterally. NEUROLOGIC: Cranial nerves are grossly intact. Ambulatory function is not witnessed. IMAGING: Lumbar spine MRI dated 08/12/2016 reported postoperative changes from L3 through L5 with spinal fusion. No disc herniation, central canal stenosis, or high grade neural foraminal stenosis was seen throughout the lumbar spine. Postoperative fluid collection identified posterior thecal sac measuring 5.6 x 2 x 2.5 cm likely representing a seroma. Fatty atrophy of the paraspinal musculature with mild intramuscular edema and patchy nonspecific enhancement. ASSESSMENT: 1. Left lower extremity pain of unknown etiology. 2. Left hip pain. 3. Status post L3 through L5 lumbar spinal decompression and fusion, 06/25/2016. 4. Diabetes [id number] dependent. TREATMENT AND RECOMMENDATIONS: 1. Will request a left-sided hip series x-ray. 2. Recommend the patient undergo EMG study in the outpatient setting in an attempt to further define etiology of symptomatic presentation. 3. Will diminish hydromorphone dosing from 1 mg to 0.5 mg and adjust from q. 2 to q. 4 hours in an attempt to diminish his opiate dependency. 4. Will initiate a trial of Nucynta 75 mg q. 4 h for p.r.n. breakthrough pain. The patient was encouraged to utilize Nucynta in place of hydromorphone for breakthrough pain to assess efficacy. PDMP was reviewed which revealed multiple prescriptions for oxycodone/acetaminophen, oxycodone and hydrocodone over the past few months. The patient is receiving prescriptions from Dr. Betancur as well as providers at [facility]. The patient most recently received a prescription for oxycodone/acetaminophen 7.5/325, 150 tablets on 08/05/2016. Should the patient be discharged with Nucynta, would recommend the patient return his oxycodone/apap to his prescribing physician for pill count and disposal. Would recommend urine screening and pain contract in the outpatient setting with prescribing physician. Would recommend diminishing his opioid dependency over the next 4 to 6 weeks at approximately 25 % reduction weekly. 5. Will initiate a trial of baclofen 10 mg t.i.d. Potential side effects and benefits were reviewed. 6. Will avoid anti-neuropathics due to his reported side effects to gabapentin as well as pregabalin but could consider initiation of a trial of nortriptyline. Thank you for the consultation of Mr. Upton. [facility], [place]
--- NOTE | 2016-08-14 10:04 | DIAGNOSTIC IMAGING REPORT ---
LEFT HIP 2 VIEWS CLINICAL HISTORY: Left hip and groin pain. FINDINGS: AP and frog-leg views of left hip are correlated with pelvic CT dated 04/23/2014. The skeletal structures are osteopenic. No fracture is seen. There is mild arthritic change in the left hip with minimal joint space narrowing. There is bony prominence along the anterosuperior aspect of the femoral head-neck junction. Sclerotic change is noted in the left sacroiliac joint. The overlying soft tissues are within normal limits. IMPRESSION: 1. No acute bony abnormality is identified in the left hip. 2. Osteopenia and mild degenerative change as above. 3. There is nonspecific bony prominence along the anterosuperior aspect of the femoral head/neck junction. This has been described in the setting of the femoroacetabular impingement syndrome. Clinical correlation will be required. Electronically signed by: Pelon Escudero M.D. 08/14/2016 10:02 AM Dictated Date/Time: 08/14/2016 9:59 AM
--- NOTE | 2016-08-14 12:17 | Hospitalist Progress Note ---
Hospitalist Progress Note Date of Service Aug 14, 2016. (Brigitte Melgoza PA-C) Subjective Pt evaluation today including: conversation w/ patient, conversation w/ family , physical exam, chart review, lab review, review of studies Pain: Controlled Voiding: no voiding problems The patient was seen and examined this morning. Pt reports doing well, pain well controlled. He slept overnight. Denies any sob or chest pain. Pain management was in to see the patient and started him on Nucynta 75 mg Q4H prn, he continues on IV decadron as well. Additional Comments: ROS: 6 point ROS negative unless listed in HPI. (Brigitte Melgoza PA-C) Objective Vital Signs Date Time Temp Pulse Resp B/P (MAP) Pulse Ox O2 Delivery O2 Flow Rate FiO2 08/14/16 07:33 36.6 82 20 136/82 (100) 98 Room Air 08/14/16 00:00 99 Room Air 08/13/16 23:56 36.5 95 18 133/80 (97) 99 Room Air 08/13/16 20:00 99 Room Air 08/13/16 15:50 99 Room Air 08/13/16 15:07 36.6 112 20 119/78 (92) 99 Room Air 08/13/16 12:01 36.5 102 18 127/84 (98) 99 Room Air 08/13/16 08:30 95 Room Air (Brigitte Melgoza PA-C) Physical Exam Notes: General Appearance: WD/WN, no apparent distress, sitting up in bedside chair Head: normocephalic, atraumatic Eyes: normal inspection, PERRL, EOMI ENT: normal ENT inspection, hearing grossly normal, pharynx normal Neck: supple, no JVD, trachea midline Respiratory/Chest: lungs clear, normal breath sounds, no respiratory distress Cardiovascular: regular rate, rhythm, no gallop, no murmur Abdomen/GI: normal bowel sounds, non tender, soft Extremities/Musculoskeletal: normal inspection, no pedal edema, + pertinent finding (left lower extremity TTP) Neurologic/Psych: alert, normal mood/affect, oriented x 3, + motor weakness (0/ 5 strength LLE, 2/5 strength RLE), + pertinent finding (sensation intact) Skin: normal color, warm/dry, no rash (Brigitte Melgoza PA-C) Laboratory Results Last 24 Hours Test 08/13/16 11:43 08/13/16 16:07 08/13/16 20:31 08/14/16 07:49 Bedside Glucose 309 mg/dl 266 mg/dl 243 mg/dl 221 mg/dl (Brigitte Melgoza PA-C) Assessment and Plan 61 y/o male with a history of lumbar stenosis, radiculopathy, DM II, and lower extremity edema who presented for a direct admission from Dr. Betancur's office on 08/12 with left lower extremity weakness and pain. Lumbar MRI 05/03/16 showed L3- L5 circumferential bulges with mild spinal canal narrowing. Pt s/p L3-L5 decompression and fusion on 06/25/16 at [facility] with Dr. Lynne. Pt reports left leg weakness/pain did not improve following surgery and has actually gotten worse. Lower extremity weakness/pain, h/o lumbar stenosis s/p decompression and fusion as above--concern for paraspinal hematoma or abscess - Consult Dr. Lynne - no plans for surgical procedure or FNA. Recs PT/OT and pain management - Pain management on board- started on Nucynta 75 mg Q4H, cont dilaudid for breakthrough pain 0.5 mg Q4H - no leukocytosis, afebrile - Cont Decadron 4 mg IV q6h- noticed increased glucose likely secondary to IV steroids. - PT/OT on board - lumbar spine MRI with contrast 08/12 IMPRESSION: 1. There are postoperative changes from L3 -L5 spinal fusion as above. 2. There is no disc herniation, central canal stenosis, or high-grade neural foraminal stenosis seen throughout the lumbar spine. 3. A postoperative fluid collection is identified posterior to the thecal sac as detailed above. This likely represents a postoperative seroma/liquefied hematoma. Superimposed infection would be impossible to exclude and clinical correlation will be required. 4. There is fatty atrophy of the paraspinous musculature with mild intramuscular edema and patchy nonspecific enhancement. This may simply represent postoperative change/granulation tissue. Clinical correlation will again be required. Diabetes mellitus type 2--last HgbA1c checked 06/26/16 was 11.5 - Restart metformin 1000 mg BID - Insulin sliding scale with accuchecks achs Lower extremity edema- - NO edema in peripheral LE, no pitting edema - pt states this began after his surgery in June, denies h/o CHF - Continue Bumex 1 mg PO qd GI ppx: - caution with decardron in place - Maalox Max 15 mL PO q4h prn dyspepsia, MOM 30 mL q6 prn, Miralax daily prn, DVT ppx: Lovenox daily, teds, scds CODE STATUS: Full code Disposition: From home, discharge likely within 24 hours if pain regimen controlled. (Brigitte Melgoza, AMOS) Reviewed: Pt Seen/Exam by Me (Asia Dinero, ) History Pt started on nucynta and baclofen today via PM. Feels pain is improved. states he has been more drowsy today. Tolerating PO. Agree with HPI/ROS as noted. (Asia Dinero, DO) General Appearance: WD/WN, no apparent distress Respiratory: normal breath sounds, no respiratory distress Cardiovascular: normal peripheral pulses, regular rate, rhythm Gastrointestinal: non tender, soft Extremities: non-tender, no pedal edema Neurologic/Psychiatric: alert (but falling asleep during discussion easily), oriented x 3 Skin Characteristics: normal color, warm/dry (Asia Dinero, ) Assessment/Plan Agree with plan as outlined above MRI noted, ortho feels more of a narcotic related radicular pain issue PM recs for nucynta and baclofen (Asia Dinero, DO)
[2016-08-14 12:53] VITALS: Ht 170.2 cm; Wt 67.4 kg
[2016-08-14 14:32] VITALS: BP 125/79; PULSE 102; TEMP 36.4; O2SAT 99
[2016-08-14] MEDS: ENOXAPARIN 40 MG/0.4 ML SYR SQ SCH (20:04)
[2016-08-14] MEDS: ACETAMINOPHEN 325 MG TAB PO PRN (20:09)
[2016-08-14 23:33] VITALS: BP 147/76; PULSE 99; TEMP 36.6; O2SAT 98
[2016-08-15] VITALS: O2SAT 99
[2016-08-15] MEDS: HYDROmorphone INJ 1 MG/ML SYR IV PRN ×3 (01:55→20:50)
[2016-08-15] MEDS: NSS + 20MEQ KCL 1000ML 1,000 ML IV SCH (03:50)
[2016-08-15] MEDS: ACETAMINOPHEN 325 MG TAB PO PRN (03:51)
[2016-08-15] MEDS: TAPENTADOL HCL 50 MG TAB PO PRN ×4 (03:51→21:47)
[2016-08-15 06:00] LABS: HEMATOCRIT 36.7 % (42-52); MEAN CELL VOLUME 87.6 fL (80-100); MEAN CORPUSCULAR HEMOGLOBIN 30.1 pg (25-34); MEAN CORPUSCULAR HGB CONC 34.3 g/dl (32-36); MEAN PLATELET VOLUME 9.2 fL (7.4-10.4); PLATELET COUNT 387 K/uL (130-400); RED BLOOD COUNT 4.19 M/uL (4.7-6.1); WHITE BLOOD COUNT 9.13 K/uL (4.8-10.8)
[2016-08-15 06:35] LABS: CREATININE 0.59 mg/dl (0.60-1.40)
[2016-08-15 07:20] VITALS: BP 150/88; PULSE 74; TEMP 36.5; O2SAT 100
[2016-08-15] MEDS: METFORMIN HCL 500 MG TAB PO SCH ×2 (07:32→18:01)
[2016-08-15] MEDS: BUMETANIDE 1 MG TAB PO SCH (07:32)
[2016-08-15] MEDS: BACLOFEN 10 MG TAB PO SCH ×3 (07:32→19:58)
--- NOTE | 2016-08-15 07:41 | Hospitalist Progress Note ---
Hospitalist Progress Note Date of Service Aug 15, 2016. (Brigitte Melgoza PA-C) Subjective Pt evaluation today including: conversation w/ patient, physical exam, chart review, lab review, review of studies Pain: Moderate 4/10 PO Intake: Good Voiding: no voiding problems The patient was seen and examined this morning. Pt reports he did not sleep much overnight due to pain. He reports good control with nucynta and baclofen but benefits better with Dilaudid overall. Patient noted that Nucynta will be covered in entirety by his insurance as he checked with [facility]. Patient reports that weakness in the left lower extremity is actually slightly improved compared to when he was admitted. Denies any acute complaints. Additional Comments: ROS: Constitutional: No fever, sweats or chills Eyes: No diplopia, no worsening or blurred vision ENT: normal hearing, no trouble swallowing Respiratory: No cough, sputum, dyspnea at rest or on exertion Cardiovascular: No chest pain, tightness or palpitations Abdomen: No pain, nausea, vomiting, diarrhea or constipation Musculoskeletal: + See HPI. No joint pain, calf pain, swelling Neurologic: +See HPI, No weakness in left lower extremity, numbness/tingling, or balance problems Psychiatric: No anxiety or depression Skin: No rash or itch (Brigitte Melgoza PA-C) Objective Vital Signs Date Time Temp Pulse Resp B/P (MAP) Pulse Ox O2 Delivery O2 Flow Rate FiO2 08/15/16 07:20 36.5 74 16 150/88 (108) 100 Room Air 08/15/16 00:00 99 Room Air 08/14/16 23:33 36.6 99 18 147/76 (99) 98 Room Air 08/14/16 16:00 Room Air 08/14/16 14:32 36.4 102 20 125/79 (94) 99 Room Air 08/14/16 08:00 Room Air (Brigitte Melgoza PA-C) Physical Exam Notes: General: asleep upon entry, awakens easily, NAD, sitting up in bedside chair Head: Normocephalic, atraumatic ENT: PERRL, EOMI, no pharyngeal exudate, mucous membranes moist Chest: Clear to auscultation, on room air, no adventitious breath sounds Cardiac: Regular rate and rhythm, no murmur, no JVD, normal peripheral pulses, good capillary refill Abdominal: NABS x 4 quadrants, soft, nontender to palpation, no rebound, guarding or tenderness Extremities: Normal inspection, no peripheral edema or erythema, calfs nontender to palpation Back: Vertical incision overlying L2-4, appears well-healed. Psych: Normal mood and affect Neuro: AAO x 3, strength diminished, 4/5 in right lower extremity and 5/5 in left and related 5/5, speech is clear, no peripheral sensory deficits (Brigitte Melgoza, AMOS) Laboratory Results Last 24 Hours Test 08/14/16 07:49 08/14/16 11:29 08/14/16 13:42 08/14/16 15:59 Bedside Glucose 221 mg/dl 272 mg/dl 283 mg/dl 213 mg/dl Test 08/14/16 20:21 08/15/16 05:21 Bedside Glucose 147 mg/dl White Blood Count 9.13 K/uL Red Blood Count 4.19 M/uL Hemoglobin 12.6 g/dL Hematocrit 36.7 % Mean Corpuscular Volume 87.6 fL Mean Corpuscular Hemoglobin 30.1 pg Mean Corpuscular Hemoglobin Concent 34.3 g/dl RDW Standard Deviation 39.6 fL RDW Coefficient of Variation 12.4 % Platelet Count 387 K/uL Mean Platelet Volume 9.2 fL Creatinine 0.59 mg/dl Est Creatinine Clear Calc Drug Dose 124.5 ml/min Estimated GFR () 127.5 Estimated GFR (Non- 110.0 (Brigitte Melgoza PA-C) Assessment and Plan 61 y/o male with a history of lumbar stenosis, radiculopathy, DM II, and lower extremity edema who presented for a direct admission from Dr. Betancur's office on 08/12 with left lower extremity weakness and pain. Lumbar MRI 05/03/16 showed L3- L5 circumferential bulges with mild spinal canal narrowing. Pt s/p L3-L5 decompression and fusion on 06/25/16 at [facility] with Dr. Lynne. Pt reports left leg weakness/pain did not improve following surgery and has actually gotten worse. Lower extremity weakness/pain, h/o lumbar stenosis s/p decompression and fusion as above--concern for paraspinal hematoma or abscess - Ortho spine on board- Dr. Lynne - no plans for surgical procedure or FNA. Recs PT/OT and pain management - Pain management on board- started on Nucynta 75 mg Q4H, baclofen 10 mg TID. Patient finds relief with Dilaudid versus other pain medication. Cont dilaudid for breakthrough pain 0.25 mg Q6H with attempt to wean off all narcotics by 25% every week. - lumbar spine MRI with contrast 08/12: reviewed. Pain management estimates the seroma to be 5.6 x 2 x 2.5 cm - Orthopedics consulted by pain management for possible intervention of the left hip - awaiting recs. - no leukocytosis, afebrile - Cont Decadron 4 mg IV q6h- noticed increased glucose likely secondary to IV steroids. - seems to be better with adding metformin back on. - PT/OT on board Diabetes mellitus type 2--last HgbA1c checked 06/26/16 was 11.5 - Restart metformin 1000 mg BID - Insulin sliding scale with accuchecks achs Lower extremity edema- - NO edema in peripheral LE, no pitting edema - pt states this began after his surgery in June, denies h/o CHF - Continue Bumex 1 mg PO qd GI ppx: - caution with decardron in place - Maalox Max 15 mL PO q4h prn dyspepsia, MOM 30 mL q6 prn, Miralax daily prn, DVT ppx: Lovenox daily, teds, scds CODE STATUS: Full code Disposition: From home, discharge likely within 24 hours if pain regimen controlled. (Brigitte Melgoza, PAVanessaC) Reviewed: Pt Seen/Exam by Me (Asia Dinero, DO) History Ongoing IV pain med needs. Pt states that meds work, but then wear off and he requests IV. Pt is currently requesting a popsicle. Tolerating PO. Did not sleep well last night due to pain. No chest pain or SOB. Ongoing LE pain. Agree with HPI/ROS as noted. (Asia Dinero, DO) General Appearance: WD/WN, no apparent distress Respiratory: normal breath sounds, no respiratory distress Cardiovascular: normal peripheral pulses, regular rate, rhythm Gastrointestinal: non tender, soft Extremities: non-tender, no pedal edema Neurologic/Psychiatric: alert, oriented x 3, other (very somnolent again today) Skin Characteristics: normal color, warm/dry (Asia Dinero, DO) Assessment/Plan Agree with plan as outlined above MRI noted, ortho spine feels more of a narcotic related radicular pain issue PM recs for nucynta and baclofen Concern on imaging for possible femoroacetabular impingement syndrome Ortho c/s pending (Asia Dinero, DO)
[2016-08-15] MEDS: INSULIN ASPART 100 UNITS/ML 3 ML PEN SC SCH ×4 (08:22→21:40)
[2016-08-15] MEDS ORDERED: NURSING VERBAL MED ORDER ONE (09:15)
--- NOTE | 2016-08-15 10:52 | PROGRESS NOTE ---
DATE: 08/15/2016 Plan of care discussed with Dr. Castillo. CHIEF COMPLAINT: Left groin/thigh pain. SUBJECTIVE: Mr. Upton is a 61-year-old male who was admitted with intractable pain in the left lower extremity as well as weakness. He has a prior history of low back and left lower extremity radicular pain and underwent an L3 through L5 lumbar decompression and fusion performed on 06/25/[address] Lynne. The patient is denying axial low back pain at this time. He does have pain in the left groin and medial thigh location as well as weakness. The patient is reporting pain at rest as well as with movement. He denies exacerbation with any positional change. The patient reports his current pain is a 5/10, ranging between a 5-7/10. He is reporting moderate benefit from use of Nucynta therapy without side effects. He feels Nucynta is efficacious at diminishing pain for approximately 2-3 hours only. He reported similar findings to use of IV hydromorphone. X-ray studies completed yesterday of the hip revealed questionable bony prominence, possibly seen in the setting of femoral acetabular impingement syndrome. An orthopedic consultation has been requested and is pending at the time of this dictation. The patient denies change in location or character of his pain over the past 24 hours. He has no new neurological or further constitutional complaints. OBJECTIVE: VITAL SIGNS: Temperature 36.5 degrees Celsius, pulse 74, respirations 16, BP 150/88, pulse oximetry 100 on room air. GENERAL: Mr. Upton is sitting up upon entering the room, reading the paper, in no acute distress. Speech and thought process are appropriate. The patient appeared to be moderately anxious. His cognition is intact. LEFT LOWER EXTREMITY: No visible abnormalities. The patient remains moderately tender to palpation over the adductor musculature in the medial proximal thigh location. Strength testing remained a 4/5 with hip flexion and extension, knee flexion/extension, and dorsi/plantar flexion when compared to the right at a 5/5. The patient does have guarding. Sensation is intact without notable deficits. Hip is tender with internal and external rotation with slightly diminished range of motion on the left when compared to the right. NEUROLOGIC: Cranial nerves grossly intact. Ambulatory function not witnessed. IMAGING: Hip x-ray dated 08/14/2016 revealed no acute bony abnormality. Osteopenia and mild degenerative changes were appreciated. Sclerotic changes noted in the left SI joint. Nonspecific bony prominence along the anterior-superior aspect of the femoral head/neck junction. This has been described in the setting of the femoral acetabular impingement syndrome. ASSESSMENT: 1. Left lower extremity pain of unknown etiology. 2. Status post L3 through L5 lumbar spinal decompression and fusion 06/25/2016. 3. Diabetes mellitus -- [id number]. TREATMENT AND RECOMMENDATIONS: 1. Awaiting orthopedic consultation regarding the hip x-ray finding. 2. Will further diminish his IV hydromorphone at this time. 3. Maintain Nucynta 75 mg q. 4 h. p.r.n. for breakthrough pain. 4. Maintain baclofen 10 mg t.i.d. MTDD
[2016-08-15 15:13] VITALS: BP 148/81; PULSE 96; TEMP 36.9; O2SAT 99
[2016-08-15] MEDS: ENOXAPARIN 40 MG/0.4 ML SYR SQ SCH (19:58)
--- NOTE | 2016-08-15 22:54 | ORTHOPEDIC CONSULTATION ---
DATE OF CONSULTATION: 08/15/2016 CHIEF COMPLAINT: Left hip pain and leg pain. HISTORY OF PRESENT ILLNESS: The patient is a 61-year-old male who has had about 4 months of back pain as well as left lower extremity radicular pain. He previously underwent cortisone injections to the spine without relief of his symptoms. He subsequently underwent L3-L5 decompression and fusion per Dr. Lynne on 06/25/2016. He states that the surgery helped with his back pain but he has continued to have leg pain and weakness which has been getting progressively worse. He was admitted for intractable pain. He is currently crying out in pain when he touches the leg and with any motion, but he is able to ambulate down the hallway. I was asked to evaluate him secondary to a finding on his left hip x-ray which could be a consideration for femoral acetabular impingement. He complains of some groin pain but most of the pain he locates is along the medial thigh and it radiates down to the level of the calf and he states it extends down to the foot. He is complaining of leg weakness. Denies mechanical symptoms. No popping, clicking or locking in the hip. PAST MEDICAL HISTORY: Diabetes mellitus type 2. PAST SURGICAL HISTORY: L3-L5 lumbar decompression and fusion 06/25/2016. ALLERGIES: CODEINE, GABAPENTIN, PREGABALIN. MEDICATIONS: Bumex, Glucophage, multivitamin, oxycodone. FAMILY HISTORY: Diabetes, hypertension, coronary artery disease, lung disease, cancer. REVIEW OF SYSTEMS: As above. PHYSICAL EXAMINATION: GENERAL: The patient is alert and oriented x3, tearful, occasionally crying out in pain. Was ambulating with a walker and was able to sit in his chair. HEENT: Atraumatic. CHEST: Clear. CARDIOVASCULAR: Regular rate and rhythm. ABDOMEN: Soft, nontender. EXTREMITIES: Examination of the left lower extremity, he complains of weakness in the light when trying to extend the leg. He has tenderness to palpation lightly the medial thigh as well as the medial calf and globally around the knee. His skin is normal. No erythema. No significant edema. He has pain with internal and external rotation of the leg that he locates along the medial thigh and down the leg, some mild pain to the groin. Examination of contralateral leg is unremarkable. X-RAYS: Two views of the left hip, he has a rather small prominence over the femoral head and neck junction in the region of cam lesion. ASSESSMENT: Left leg pain. PLAN: The x-rays demonstrated a rather small cam lesion. He does have some prominence in this region which can be seen in femoral acetabular impingement but lesions that are typically symptomatic tend to be much larger than what he has. Also, the point that he is having currently is more medial thigh pain and radicular pain going down the leg and weakness, which would not be seen in femoral acetabular impingement. Typical symptoms of this are deep groin pain and mechanical symptoms such as popping, clicking and locking, which he is not really relating at this time. As he is in a fair amount of pain, it may be a consideration for him to have a fluoroscopic-guided intraarticular hip injection. This would rule out whether there is any involvement from the femoral acetabular joint to his pain, but given his more radicular type symptoms, I am not convinced that that would relieve his pain as the impingement findings on his x-ray are rather mild. I would defer further treatment management beyond the intraarticular injections with pain management and spine physicians. Thank you. NOEMY
[2016-08-15 23:18] VITALS: BP 152/92; PULSE 95; TEMP 36.6; O2SAT 96
[2016-08-16] MEDS: TAPENTADOL HCL 50 MG TAB PO PRN ×5 (01:43→22:16)
[2016-08-16] MEDS: HYDROmorphone INJ 1 MG/ML SYR IV PRN ×2 (03:52→23:30)
[2016-08-16 07:25] VITALS: BP 152/88; PULSE 85; TEMP 36.8; O2SAT 97
[2016-08-16 08:00] VITALS: O2SAT 97
[2016-08-16] MEDS: BACLOFEN 10 MG TAB PO SCH ×3 (08:27→19:42)
[2016-08-16] MEDS: BUMETANIDE 1 MG TAB PO SCH (08:28)
[2016-08-16] MEDS: METFORMIN HCL 500 MG TAB PO SCH ×2 (08:28→17:26)
[2016-08-16] MEDS: INSULIN ASPART 100 UNITS/ML 3 ML PEN SC SCH ×4 (08:32→20:48)
--- NOTE | 2016-08-16 15:25 | Progress Note ---
Subjective Date of Service: Aug 16, 2016. Subjective Pt evaluation today including: conversation w/ patient, physical exam, chart review, lab review, review of studies, conversation w/ enrollment consultant, review of inpatient medication list Pain: moderate 3-4/10 PO Intake: good po intake Voiding: no voiding problems Patient was seen and examined this morning. Pt reports he did not sleep much overnight due to pain. He reports good control with nucynta and baclofen but benefits better with Dilaudid overall. Patient reports that weakness in the left lower extremity is slightly improved compared to when he was admitted. Denies any acute complaints. Problem List Medical Problems: (1) Lumbar radiculopathy Status: Acute (2) Sacroiliac joint dysfunction of left side Status: Acute (3) Sciatica of left side Status: Acute Review of Systems Constitutional: No fever, sweats or chills Eyes: No diplopia, no worsening or blurred vision ENT: normal hearing, no trouble swallowing Respiratory: No cough, sputum, dyspnea at rest or on exertion Cardiovascular: No chest pain, tightness or palpitations Abdomen: No pain, nausea, vomiting, diarrhea or constipation Musculoskeletal: + See HPI. No joint pain, calf pain, swelling Neurologic: +See HPI, No weakness in left lower extremity, numbness/tingling, or balance problems Psychiatric: No anxiety or depression Skin: No rash or itch Objective Vital Signs Date Time Temp Pulse Resp B/P (MAP) Pulse Ox O2 Delivery O2 Flow Rate FiO2 08/16/16 08:00 97 Room Air 08/16/16 07:25 36.8 85 20 152/88 (109) 97 08/16/16 00:00 Room Air 08/15/16 23:18 36.6 95 20 152/92 (112) 96 Room Air 08/15/16 16:00 Room Air Physical Exam Comments: General: NAD, sitting up in bedside chair Head: Normocephalic, atraumatic ENT: PERRL, EOMI, no pharyngeal exudate, mucous membranes moist Chest: Clear to auscultation, on room air, no adventitious breath sounds Cardiac: Regular rate and rhythm, no murmur, no JVD Abdominal: soft, nontender to palpation, no rebound, guarding or tenderness Extremities: Normal inspection, no peripheral edema or erythema, calfs nontender to palpation Back: Vertical incision overlying L2-4, appears well-healed. Psych: Normal mood and affe Neuro: AAO x 3, strength diminished, 4/5 in right lower extremity and 5/5 in left and related 5/5, speech is clear Laboratory Results Last Resulted CBC 08/15/16 05:21 Last Resulted BMP 08/12/16 16:35 08/15/16 05:21 Assessment and Plan 61 y/o male with a history of lumbar stenosis, radiculopathy, DM II, and lower extremity edema who presented for a direct admission from Dr. Betancur's office on 08/12 with left lower extremity weakness and pain. Lumbar MRI 05/03/16 showed L3- L5 circumferential bulges with mild spinal canal narrowing. Pt s/p L3-L5 decompression and fusion on 06/25/16 at [facility] [place] with Dr. Lynne. Pt reports left leg weakness/pain did not improve following surgery and has actually gotten worse. Lower extremity weakness/pain, h/o lumbar stenosis s/p decompression and fusion as above--concern for paraspinal hematoma or abscess - Ortho spine on board- Dr. Lynne - no plans for surgical procedure or FNA. Recs PT/OT and pain management - Pain management on board- started on Nucynta 75 mg Q4H, baclofen 10 mg TID. Patient finds relief with Dilaudid versus other pain medication. Cont dilaudid for breakthrough pain 0.25 mg Q6H with attempt to wean off all narcotics by 25% every week. - lumbar spine MRI with contrast 08/12: reviewed. Pain management estimates the seroma to be 5.6 x 2 x 2.5 cm - no leukocytosis, afebrile - Cont Decadron 4 mg IV q6h- noticed increased glucose likely secondary to IV steroids. - seems to be better with adding metformin back on. - PT/OT on board. - - Orthopedics consulted by pain management for possible intervention of the left hip - medial thigh pain and radicular pain going down the leg and weakness , which would not be seen in femoral acetabular impingement. As he is in a fair amount of pain, it may be a consideration for him to have a fluoroscopic-guided intraarticular hip injection. This would rule out whether there is any involvement from the femoral acetabular joint to his pain, but given his more radicular type symptoms, I am not convinced that that would relieve his pain as the impingement findings on his x-ray are rather mild. Continue further treatment management beyond the intraarticular injections with pain management and spine physician Diabetes mellitus type 2--last HgbA1c checked 06/26/16 was 11.5 - Restart metformin 1000 mg BID - Insulin sliding scale with accuchecks achs Lower extremity edema- - NO edema in peripheral LE, no pitting edema - pt states this began after his surgery in June, denies h/o CHF - Continue Bumex 1 mg PO qd GI ppx: - caution with decardron in place - Maalox Max 15 mL PO q4h prn dyspepsia, MOM 30 mL q6 prn, Miralax daily prn, DVT ppx: Lovenox daily, teds, scds CODE STATUS: Full code Continued [facility] [place] stay due to: multiple IV medications needed Discharge planning: uncertain
[2016-08-16 16:01] VITALS: BP 137/81; PULSE 100; TEMP 36.6; O2SAT 97
[2016-08-16] MEDS ORDERED: NURSING VERBAL MED ORDER ONE (18:30)
[2016-08-16] MEDS ORDERED: CLONAZEPAM 0.5 MG TAB PO ONE (18:45)
[2016-08-16] MEDS: ENOXAPARIN 40 MG/0.4 ML SYR SQ SCH (19:42)
[2016-08-16 23:41] VITALS: BP 132/85; PULSE 98; TEMP 36.5; O2SAT 99
[2016-08-17] MEDS: ACETAMINOPHEN IV 100 ML IV PRN (01:56)
[2016-08-17] MEDS: TAPENTADOL HCL 50 MG TAB PO PRN ×5 (02:39→19:37)
[2016-08-17] MEDS: HYDROmorphone INJ 1 MG/ML SYR IV PRN ×2 (05:45→21:52)
[2016-08-17 07:21] VITALS: BP 127/83; PULSE 104; TEMP 36.4; O2SAT 99
[2016-08-17] MEDS: METFORMIN HCL 500 MG TAB PO SCH ×2 (07:38→17:44)
[2016-08-17] MEDS: BACLOFEN 10 MG TAB PO SCH ×3 (07:38→19:36)
[2016-08-17] MEDS: BUMETANIDE 1 MG TAB PO SCH (07:38)
[2016-08-17] MEDS: INSULIN ASPART 100 UNITS/ML 3 ML PEN SC SCH ×4 (08:55→20:16)
[2016-08-17] MEDS ORDERED: NURSING VERBAL MED ORDER ONE (12:15)
--- NOTE | 2016-08-17 13:24 | Progress Note ---
Subjective Date of Service: Aug 17, 2016. Subjective Pt evaluation today including: conversation w/ patient Pain: 2-3/10 PO Intake: good Voiding: no voiding problems Pt still having pain in his left lower extremity, waiting from pain management regarding ortho recommendation for fluoroscopic-guided intraarticular hip injection Problem List Medical Problems: (1) Lumbar radiculopathy Status: Acute (2) Sacroiliac joint dysfunction of left side Status: Acute (3) Sciatica of left side Status: Acute Review of Systems Constitutional: No fever, sweats or chills Eyes: No diplopia, no worsening or blurred vision ENT: normal hearing, no trouble swallowing Respiratory: No cough, sputum, dyspnea at rest or on exertion Cardiovascular: No chest pain, tightness or palpitations Abdomen: No pain, nausea, vomiting, diarrhea or constipation Musculoskeletal: + See HPI. No joint pain, calf pain, swelling Neurologic: +See HPI, No weakness in left lower extremity, numbness/tingling, or balance problems Psychiatric: No anxiety or depression Skin: No rash or itch Objective Vital Signs Date Time Temp Pulse Resp B/P (MAP) Pulse Ox O2 Delivery O2 Flow Rate FiO2 08/17/16 08:00 Room Air 08/17/16 07:21 36.4 104 16 127/83 (98) 99 Room Air 08/17/16 00:00 Room Air 08/16/16 23:41 36.5 98 20 132/85 (101) 99 Room Air 08/16/16 16:01 36.6 100 20 137/81 (99) 97 08/16/16 16:00 Room Air Physical Exam Comments: General: NAD, sitting up in bedside chair Head: Normocephalic, atraumatic ENT: PERRL, EOMI, no pharyngeal exudate, mucous membranes moist Chest: Clear to auscultation, on room air, no adventitious breath sounds Cardiac: Regular rate and rhythm, no murmur, no JVD Abdominal: soft, nontender to palpation, no rebound, guarding or tenderness Extremities: Normal inspection, no peripheral edema or erythema, calfs nontender to palpation Back: Vertical incision overlying L2-4, appears well-healed. Psych: Normal mood and affe Neuro: AAO x 3, strength diminished, 4/5 in right lower extremity and 5/5 in left and related 5/5, speech is clear Laboratory Results Last 24 Hours Test 08/16/16 16:41 08/16/16 20:24 08/17/16 07:30 08/17/16 11:59 Bedside Glucose 114 mg/dl 98 mg/dl 137 mg/dl 170 mg/dl Assessment and Plan 61 y/o male with a history of lumbar stenosis, radiculopathy, DM II, and lower extremity edema who presented for a direct admission from Dr. Betancur's office on 08/12 with left lower extremity weakness and pain. Lumbar MRI 05/03/16 showed L3- L5 circumferential bulges with mild spinal canal narrowing. Pt s/p L3-L5 decompression and fusion on 06/25/16 at [facility] with Dr. Lynne. Pt reports left leg weakness/pain did not improve following surgery and has actually gotten worse. Lower extremity weakness/pain, h/o lumbar stenosis s/p decompression and fusion as above--concern for paraspinal hematoma or abscess - Ortho spine on board- Dr. Lynne - no plans for surgical procedure or FNA. Recs PT/OT and pain management - Pain management on board- started on Nucynta 75 mg Q4H, baclofen 10 mg TID. Patient finds relief with Dilaudid versus other pain medication. Cont dilaudid for breakthrough pain 0.25 mg Q6H with attempt to wean off all narcotics by 25% every week. - lumbar spine MRI with contrast 08/12: reviewed. Pain management estimates the seroma to be 5.6 x 2 x 2.5 cm - no leukocytosis, afebrile - Cont Decadron 4 mg IV q6h- noticed increased glucose likely secondary to IV steroids. - seems to be better with adding metformin back on. - PT/OT on board. - - Orthopedics consulted by pain management for possible intervention of the left hip - medial thigh pain and radicular pain going down the leg and weakness , which would not be seen in femoral acetabular impingement. As he is in a fair amount of pain, it may be a consideration for him to have a fluoroscopic-guided intraarticular hip injection. This would rule out whether there is any involvement from the femoral acetabular joint to his pain, but given his more radicular type symptoms, I am not convinced that that would relieve his pain as the impingement findings on his x-ray are rather mild. Continue further treatment management beyond the intraarticular injections with pain management and spine physician - pending pain management approval for discharge. Diabetes mellitus type 2--last HgbA1c checked 06/26/16 was 11.5 - Restart metformin 1000 mg BID - Insulin sliding scale with accu checks achs Lower extremity edema- - NO edema in peripheral LE, no pitting edema - pt states this began after his surgery in June, denies h/o CHF - Continue Bumex 1 mg PO qd GI ppx: - caution with decardron in place - Maalox Max 15 mL PO q4h prn dyspepsia, MOM 30 mL q6 prn, Miralax daily prn, DVT ppx: Lovenox daily, teds, scds CODE STATUS: Full code Continued [facility] stay due to: multiple IV medications needed Discharge planning: uncertain
[2016-08-17] MEDS: CLONAZEPAM 0.5 MG TAB PO PRN (13:44)
[2016-08-17 16:00] VITALS: BP 125/75; PULSE 101; TEMP 36.4; O2SAT 99
[2016-08-17] MEDS: ACETAMINOPHEN 325 MG TAB PO PRN (16:44)
[2016-08-17] MEDS: ENOXAPARIN 40 MG/0.4 ML SYR SQ SCH (19:36)
[2016-08-17 23:02] VITALS: BP 146/78; PULSE 108; TEMP 37; O2SAT 98
[2016-08-17 23:23] VITALS: BP 126/76; PULSE 112; TEMP 36.7; O2SAT 98
[2016-08-18] MEDS: TAPENTADOL HCL 50 MG TAB PO PRN ×5 (02:33→23:55)
[2016-08-18] MEDS: HYDROmorphone INJ 1 MG/ML SYR IV PRN ×4 (05:34→23:56)
[2016-08-18 07:20] LABS: HEMATOCRIT 42.4 % (42-52); MEAN CELL VOLUME 87.1 fL (80-100); MEAN CORPUSCULAR HEMOGLOBIN 30.6 pg (25-34); MEAN CORPUSCULAR HGB CONC 35.1 g/dl (32-36); MEAN PLATELET VOLUME 9.1 fL (7.4-10.4); PLATELET COUNT 409 K/uL (130-400); RED BLOOD COUNT 4.87 M/uL (4.7-6.1); WHITE BLOOD COUNT 9.44 K/uL (4.8-10.8)
[2016-08-18 07:26] VITALS: BP 137/89; PULSE 98; TEMP 36.8; O2SAT 100
[2016-08-18 07:49] LABS: CREATININE 0.69 mg/dl (0.60-1.40)
[2016-08-18] MEDS: BACLOFEN 10 MG TAB PO SCH ×3 (08:11→19:42)
[2016-08-18] MEDS: BUMETANIDE 1 MG TAB PO SCH (08:11)
[2016-08-18] MEDS: METFORMIN HCL 500 MG TAB PO SCH ×2 (08:11→17:50)
[2016-08-18] MEDS: CLONAZEPAM 0.5 MG TAB PO PRN (08:17)
[2016-08-18] MEDS: INSULIN ASPART 100 UNITS/ML 3 ML PEN SC SCH ×4 (08:19→19:59)
--- NOTE | 2016-08-18 11:07 | Family Medicine Progress Note ---
Progress Note Date of Service Aug 18, 2016. Subjective Pt evaluation today including: conversation w/ patient, conversation w/ family Feels ok, has persistent pain but feels better after walking. Wants to be ambulated around 2 AM. Will be getting fluouroscopic injection tomorrow AM. Constitutional: No fever, No weakness Eyes: No worsening of vision ENT: No hearing loss Respiratory: No cough, No sputum Cardiovascular: No chest pain, No orthopnea Abdomen: No pain, No nausea, No vomiting, No diarrhea Musculoskeletal: + joint pain Neurologic: No memory loss Skin: No rash All Other Systems: Reviewed and Negative Medications Current Inpatient Medications Medications (Trade) Dose Ordered Sig/Brayan Route Start Time Stop Time Status Last Admin Dose Admin Enoxaparin Sodium (Lovenox Inj) 40 mg DAILY@2000 SQ 08/12/16 20:00 09/11/16 19:59 Future hold 08/17/16 19:36 40 MG Acetaminophen (Tylenol Tab) 650 mg Q4H PRN PO 08/12/16 16:00 09/11/16 15:59 08/17/16 16:44 650 MG Al Hydrox/Mg Hydrox/Simethicone (Maalox Max Susp) 15 ml Q4H PRN PO 08/12/16 16:00 09/11/16 15:59 Magnesium Hydroxide (Milk Of Magnesia Susp) 30 ml Q6H PRN PO 08/12/16 16:00 09/11/16 15:59 08/18/16 08:15 30 ML Polyethylene (Miralax Powder Packet) 17 gm DAILY PRN PO 08/12/16 16:30 09/11/16 16:29 Ondansetron HCl (Zofran Inj) 4 mg Q6H PRN IV 08/12/16 16:00 09/11/16 15:59 Acetaminophen 100 ml @ 400 mls/hr Q8H PRN IV 08/12/16 16:15 09/11/16 16:14 08/17/16 01:56 400 MLS/HR Bumetanide (Bumex Tab) 1 mg QAM PO 08/13/16 08:00 09/12/16 07:59 08/18/16 08:11 1 MG Glucose (Glucose 40% Gel) 15-30 GRAMS 15 GRAMS... UD PRN PO 08/12/16 16:45 09/11/16 16:44 Glucose (Glucose Chew Tab) 4-8 Tablets 4 Tabl... UD PRN PO 08/12/16 16:45 09/11/16 16:44 Dextrose (Dextrose 50% 50ML Syringe) 25-50ML OF 50% DW IV FOR... UD PRN IV 08/12/16 16:45 09/11/16 16:44 Glucagon (Glucagon Inj) 1 mg UD PRN SQ 08/12/16 16:45 09/11/16 16:44 Insulin Aspart (novoLOG ASPART) SLIDING SCALE G... ACHS SC 08/12/16 21:00 09/11/16 20:59 08/18/16 08:19 5 UNITS Metformin HCl (Glucophage Tab) 1,000 mg BIDM PO 08/14/16 08:00 09/13/16 07:59 08/18/16 08:11 1,000 MG Baclofen (Lioresal Tab) 10 mg TID PO 08/14/16 08:00 09/13/16 07:59 08/18/16 08:11 10 MG Tapentadol (Nucynta Tab) 75 mg Q4H PRN PO 08/14/16 08:00 08/28/16 07:59 08/18/16 08:12 75 MG Hydromorphone HCl (Dilaudid Inj) 0.25 mg Q6H PRN IV 08/15/16 14:00 08/26/16 16:14 08/18/16 05:34 0.25 MG Clonazepam (Klonopin Tab) 0.5 mg Q12H PRN PO 08/17/16 12:15 09/16/16 12:14 08/18/16 08:17 0.5 MG Objective Vital Signs Date Time Temp Pulse Resp B/P (MAP) Pulse Ox O2 Delivery O2 Flow Rate FiO2 08/18/16 08:10 Room Air 08/18/16 07:26 36.8 98 17 137/89 (105) 100 Room Air 08/18/16 00:00 Room Air 08/17/16 23:23 36.7 112 20 126/76 (93) 98 Room Air 08/17/16 23:02 37.0 108 18 146/78 (100) 98 Room Air 08/17/16 16:00 Room Air 08/17/16 16:00 36.4 101 20 125/75 (92) 99 Room Air Physical Exam General Appearance: WD/WN, no apparent distress, + thin Eyes: normal inspection, PERRL ENT: hearing grossly normal Neck: supple, no JVD Respiratory/Chest: lungs clear, normal breath sounds, no respiratory distress Cardiovascular: regular rate, rhythm, no murmur Abdomen: normal bowel sounds, non tender, soft Extremities: non-tender, normal inspection Neurologic/Psychiatric: alert, normal mood/affect, oriented x 3 Skin: no rash Laboratory Results Last 24 Hours Test 08/17/16 11:59 08/17/16 16:23 08/17/16 20:08 08/18/16 07:02 Bedside Glucose 170 mg/dl 139 mg/dl 142 mg/dl White Blood Count 9.44 K/uL Red Blood Count 4.87 M/uL Hemoglobin 14.9 g/dL Hematocrit 42.4 % Mean Corpuscular Volume 87.1 fL Mean Corpuscular Hemoglobin 30.6 pg Mean Corpuscular Hemoglobin Concent 35.1 g/dl RDW Standard Deviation 40.0 fL RDW Coefficient of Variation 12.5 % Platelet Count 409 K/uL Mean Platelet Volume 9.1 fL Creatinine 0.69 mg/dl Est Creatinine Clear Calc Drug Dose 106.5 ml/min Estimated GFR () 119.6 Estimated GFR (Non- 103.2 Test 08/18/16 07:34 Bedside Glucose 142 mg/dl Assessment and Plan 61 yo M with chronic left leg and back pain - found to be due to left sided sacro-ilitis and lumbar postlaminectomy syndrome, will be getting an injection under fluoroscopy tomorrow. Left leg sacroilitis For injection tomorrow NPO after midnight, except for medications Continue PT/OT, pt reports he feels better after ambulating and requests to be walked around at 230AM Hold lovenox today Continue Nucynta / Dilaudid at current doses Type 2 DM, with A1c of 11.5% Metformin restarted Insulin sliding scale present Will discuss diet w/patient Lower extremity edema Improving overall Continue Bumex 1mg daily VTE: SCDs, TEDS CODE STATUS: Full code DISPO: Med/Surg Resident Physician Supervision Note: I interviewed and examined the patient. Discussed with Dr. Thompson and agree with findings and plan as documented in the note. Any exceptions or clarifications are listed here: None Documented By: Perry Padron pain reaosnable when pain meds kick in, bad when they wear off, for SI injection tomorrow ROS otherwise negative except for as above vitals noted nad no appearance of pain current no pallor or icterus SI pain - ongiong pain control, injection tomorrow DVT proph - lovenox (currently on hold for tomorrow's injection) otherwise as above Resident Tracking Resident Involvement: Resident Care Provided Care Provided: Adult Hospital Medicine
--- NOTE | 2016-08-18 13:29 | Pain Management Progress Note ---
Pain Management Progress Note Date of Service Aug 18, 2016. Subjective Mr. Rodríguez is a 61-year-old male with a history of left-sided radicular symptoms to his knee. He does have a history of an L3 to 5 fusion and was seen by Dr. Lynne during this admission and did not feel that this was secondary to lumbar radicular symptoms. He continues to have pain despite Nucynta administration ranging between 3 and 7 out of 10 and is worse with walking and activity and log rolling in bed better with rest and immobility. Characterizes this pain as sharp stabbing he denies a burning component at this time. No bowel or bladder incontinence motor weakness foot drop or falls at this time are noted by the patient. He was seen by orthopedics who did not feel that he had a significant component of his pain from femoral acetabular impingement. Objective Vital Signs: Last Vital Signs Documentation Date Time Temp Pulse Resp B/P (MAP) Pulse Ox O2 Delivery O2 Flow Rate FiO2 08/18/16 08:10 Room Air 08/18/16 07:26 36.8 98 17 137/89 (105) 100 Physical Exam: Awake alert and oriented 3 tearful on exam Pupils equally round and reactive to light Neck is supple CV regular rate and rhythm Lungs notable wheezes or rhonchi skin warm and dry to touch with no skin tears breakdown Spine he is nontender over the axial lumbar midline he has adequate range of motion in all planes of his lumbar spine is nontender to facet provocation He is exquisitely tender over his left sacroiliac joint nontender over the right nontender over greater trochanters bilaterally He has 5 out of 5 strength bilateral lower extremities equal throughout with intact sensation and 2+ DTRs of bilateral L4 and S1 no appreciable ankle clonus He has a slow guarded gait He has a positive left Fabere and Gaenslen negative right Laboratory Laboratory Findings 08/18/16 07:02 Imaging MRI: reports reviewed Radiology: reports reviewed [place] Drug Monitoring Program Search Results: patient reviewed within database Assessment 1. Left Sided inflammatory sacroiliitis 2. Lumbar Postlaminectomy syndrome Recommendations 1. We'll plan for a left SI joint injection tomorrow. He will be made nothing by mouth after midnight except for medications and his Lovenox will be held. It can take up to 2 weeks for maximal effect of corticosteroid injections 2. Continue Nucynta as prior 3. PT/OT 4. All questions were answered and consent was signed for left SI joint injection Dragon Voice Recognition This chart was completed in part utilizing [employer] Voice Recognition Software. Random word insertions, pronoun errors, and incomplete sentences are an occasional consequence of this system due to software limitations and ambient noise. Any questions or concerns about the content, text or information contained within the body of this dictation should be directly addressed to the provider for clarification.
[2016-08-18 15:36] VITALS: BP 129/82; PULSE 118; TEMP 36.7; O2SAT 97
[2016-08-18] MEDS ORDERED: KETOROLAC TROMETHAMINE 30 MG/ML VIAL IV STA (20:29)
[2016-08-19] MEDS ORDERED: HYDROmorphone INJ 1 MG/ML SYR IV STA (04:39)
[2016-08-19] MEDS ORDERED: NURSING VERBAL MED ORDER ONE (04:45)
[2016-08-19] MEDS: CLONAZEPAM 0.5 MG TAB PO PRN ×2 (07:34→23:45)
[2016-08-19] MEDS: BACLOFEN 10 MG TAB PO SCH ×3 (07:36→21:24)
[2016-08-19] MEDS: TAPENTADOL HCL 50 MG TAB PO PRN ×3 (07:36→19:57)
[2016-08-19] MEDS: BUMETANIDE 1 MG TAB PO SCH (07:37)
[2016-08-19] MEDS ORDERED: BUPIVACAINE 0.25% 30 ML VIAL ONE (08:01)
[2016-08-19] MEDS ORDERED: TRIAMCINOLONE ACET 40 MG/ML VIAL ONE (08:01)
[2016-08-19] MEDS ORDERED: BUPIVACAINE 0.5 % 5 MG/1 ML MPF 30ML VIAL ONE (08:01)
[2016-08-19 08:03] VITALS: BP 132/87; PULSE 82; TEMP 36.4; O2SAT 100
[2016-08-19 08:09] VITALS: BP 205/91; PULSE 99; O2SAT 96
[2016-08-19 08:15] VITALS: BP 157/86; PULSE 98; O2SAT 98
--- NOTE | 2016-08-19 08:51 | Pain Clinic Procedure Note ---
Pain Management Procedure Note Procedure Date Aug 19, 2016. Procedure Description Procedure Time Out: side/site verified, patient ID confirmed, correct procedure Consent Obtained: written Performed By: Dr. Tiffany Crouch Indications: diagnostic, therapeutic Contraindications: none Pre Procedure Vital Signs Date Time Temp Pulse Resp B/P (MAP) Pulse Ox O2 Delivery O2 Flow Rate FiO2 08/19/16 08:03 36.4 82 22 132/87 (102) 100 Room Air ASA Class: 3 Description: SACROILIAC JOINT INJECTION Diagnosis: Inflammatory Sacroiliitis and Lumbago Side: left Surgeon: Dr. Tiffany Crouch Anesthesia: local Material forwarded to lab: none Prior to starting, the Patients diagnosis and the procedure were reviewed with the patient in detail. Possible risks, complications and alternative therapies were also reviewed. Diagnostic nature of the procedure was discussed. Patient s questions were answered. Informed consent was obtained. Allergies and medication list was reviewed. The patient was brought to the fluoroscopy room and placed in prone position on the table. Immediately prior to starting the procedure, a time out was conducted with the staff and the patient where the patient was identified, proposed procedure was verified, consent was reviewed and the proper site for the planned procedure was identified. Fluoroscopy was utilized in performing the procedure to assist in placement of the needle, to evaluate the final position on the needle prior to injection and to avoid intravascular injection. Monitors used included intermittent blood pressure with an automated device, continuous pulse oximetry and level of consciousness. Patient was not given any intravenous sedation and constant verbal contact was maintained throughout the procedure. The sacral area was cleansed with duraprep and betadine solution, and sterile drapes were applied. Posterior superior iliac spine was identified by palpation and under fluoroscopy. Fluoroscope was rotated in the axial plane to obtain an ideal view if the inferior portion of the posterior aspect of the sacroiliac joint. Fluoroscope was then angled in a slight caudal direction. Skin and subcutaneous tissues were infiltrated with local anesthetic and a 22 gauge 3.5 inch Quincke point spinal needle with approximately 15 degree curve was advanced through the skin and subcutaneous tissues towards the sacroiliac joint under direct fluoroscopic guidance into the affected joint. Needle position was verified to be in the joint in a lateral view. 0.5 cc of Isovue 300 was injected via the needle and the contrast was noted to confirm intra- articular needle placement. Next, a solution containing 40 mg of Triamcinalone acetonide and 1.5cc of 0.5% Bupivacaine-MPF was injected. Needle was then flushed with 0.5 cc of the local anesthetic and withdrawn. Adequate hemostasis was noted. A sterile band aid was applied at the injection site. Report was given to the floor RN. Complications: none Patient Tolerated Procedure: well Post-procedure Vital Signs: reviewed and stable Discharge Instructions: reviewed & understood B[employer] Voice Recognition; This chart was completed in part utilizing [employer] Voice Recognition Software. Random word insertions, pronoun errors, and incomplete sentences are an occasional consequence of this system due to software limitations and ambient noise. Any questions or concerns about the content, text or information contained within the body of this dictation should be directly addressed to the provider for clarification.
--- NOTE | 2016-08-19 09:08 | Family Medicine Progress Note ---
Progress Note Date of Service Aug 19, 2016. Subjective Pt evaluation today including: conversation w/ patient, conversation w/ family , physical exam Patient seen prior to procedure, he was having significant pain so was walking the hallways and yelling for pain medications. He was going to go get his injection shortly after. Was seen again on rounds, pt was sitting comfortably listening to music then when turned it off he asked for more pain medications. Constitutional: No fever, No chills, No sweats Musculoskeletal: + see HPI, + joint pain, No muscle pain, No swelling Psychiatric: No depression symptoms Endo: No fatigue All Other Systems: Reviewed and Negative Medications Current Inpatient Medications Medications (Trade) Dose Ordered Sig/Brayan Route Start Time Stop Time Status Last Admin Dose Admin Enoxaparin Sodium (Lovenox Inj) 40 mg DAILY@2000 SQ 08/12/16 20:00 09/11/16 19:59 Future hold 08/17/16 19:36 40 MG Acetaminophen (Tylenol Tab) 650 mg Q4H PRN PO 08/12/16 16:00 09/11/16 15:59 08/17/16 16:44 650 MG Al Hydrox/Mg Hydrox/Simethicone (Maalox Max Susp) 15 ml Q4H PRN PO 08/12/16 16:00 09/11/16 15:59 Magnesium Hydroxide (Milk Of Magnesia Susp) 30 ml Q6H PRN PO 08/12/16 16:00 09/11/16 15:59 08/18/16 08:15 30 ML Polyethylene (Miralax Powder Packet) 17 gm DAILY PRN PO 08/12/16 16:30 09/11/16 16:29 Ondansetron HCl (Zofran Inj) 4 mg Q6H PRN IV 08/12/16 16:00 09/11/16 15:59 Acetaminophen 100 ml @ 400 mls/hr Q8H PRN IV 08/12/16 16:15 09/11/16 16:14 08/17/16 01:56 400 MLS/HR Bumetanide (Bumex Tab) 1 mg QAM PO 08/13/16 08:00 09/12/16 07:59 08/19/16 07:37 1 MG Glucose (Glucose 40% Gel) 15-30 GRAMS 15 GRAMS... UD PRN PO 08/12/16 16:45 09/11/16 16:44 Glucose (Glucose Chew Tab) 4-8 Tablets 4 Tabl... UD PRN PO 08/12/16 16:45 09/11/16 16:44 Dextrose (Dextrose 50% 50ML Syringe) 25-50ML OF 50% DW IV FOR... UD PRN IV 08/12/16 16:45 09/11/16 16:44 Glucagon (Glucagon Inj) 1 mg UD PRN SQ 08/12/16 16:45 09/11/16 16:44 Insulin Aspart (novoLOG ASPART) SLIDING SCALE G... ACHS SC 08/12/16 21:00 09/11/16 20:59 08/18/16 17:51 7 UNITS Metformin HCl (Glucophage Tab) 1,000 mg BIDM PO 08/14/16 08:00 09/13/16 07:59 08/18/16 17:50 1,000 MG Baclofen (Lioresal Tab) 10 mg TID PO 08/14/16 08:00 09/13/16 07:59 08/19/16 07:36 10 MG Tapentadol (Nucynta Tab) 75 mg Q4H PRN PO 08/14/16 08:00 08/28/16 07:59 08/19/16 07:36 75 MG Hydromorphone HCl (Dilaudid Inj) 0.25 mg Q6H PRN IV 08/15/16 14:00 08/26/16 16:14 08/18/16 23:56 0.25 MG Clonazepam (Klonopin Tab) 0.5 mg Q12H PRN PO 08/17/16 12:15 09/16/16 12:14 08/19/16 07:34 0.5 MG Objective Vital Signs Date Time Temp Pulse Resp B/P (MAP) Pulse Ox O2 Delivery O2 Flow Rate FiO2 08/19/16 08:15 98 16 157/86 (109) 98 Room Air 08/19/16 08:09 99 20 205/91 (129) 96 Room Air 08/19/16 08:03 36.4 82 22 132/87 (102) 100 Room Air 08/19/16 00:08 08/19/16 00:05 Room Air 08/18/16 20:10 Room Air 08/18/16 15:36 36.7 118 16 129/82 (98) 97 Room Air Physical Exam General Appearance: WD/WN, no apparent distress Eyes: normal inspection, PERRL ENT: hearing grossly normal Neck: supple, no JVD Respiratory/Chest: lungs clear, normal breath sounds, no respiratory distress Cardiovascular: regular rate, rhythm, no murmur Abdomen: non tender, soft Extremities: non-tender, no pedal edema Neurologic/Psychiatric: alert, normal mood/affect, oriented x 3 Skin: no rash Laboratory Results Last 24 Hours Test 08/18/16 11:37 08/18/16 16:49 08/18/16 19:51 08/19/16 08:31 Bedside Glucose 150 mg/dl 142 mg/dl 130 mg/dl 138 mg/dl Assessment and Plan 61 yo M with chronic left leg and back pain - found to be due to left sided sacro-ilitis and lumbar postlaminectomy syndrome, underwent injection today. Left leg sacroilitis Underwent injection today with Dr Crouch Continue PT/OT, pt reports he feels better after ambulating and requests to be walked around at 230AM Will restart Lovenox at night. Restarted diet Continue Nucynta / Dilaudid at current doses Explained to pt we are not increasing his pain medication at this time as he just had injection Can apply ice if needed Type 2 DM, with A1c of 11.5% Metformin restarted Insulin sliding scale present Will discuss diet w/patient Lower extremity edema Improving overall Continue Bumex 1mg daily VTE: SCDs, TEDS CODE STATUS: Full code DISPO: Med/Surg Resident Physician Supervision Note: I interviewed and examined the patient. Discussed with Dr. Thompson and agree with findings and plan as documented in the note. Any exceptions or clarifications are listed here: None Documented By: Perry Padron resting in bed appearing comfortable while listening to music - seen after SI injection. no immediate complaints of pain, but does immediately ask when he can get pain meds next. ROS otherwise negative except for as above vitals noted nad breathing unlabored no pallor or icterus sacroiliitis - s/p SI injection - as noted by pain management, may take 2wks for full effect; continue current meds and follow, encouraged non-pharmacologic pain management such as listening to music (appeared very comfortable when i entered the room) ?home tomorrow Resident Tracking Resident Involvement: Resident Care Provided Care Provided: Adult Hospital Medicine
[2016-08-19] MEDS: METFORMIN HCL 500 MG TAB PO SCH ×2 (09:19→17:18)
[2016-08-19] MEDS: INSULIN ASPART 100 UNITS/ML 3 ML PEN SC SCH ×4 (09:21→21:00)
[2016-08-19] MEDS: HYDROmorphone INJ 1 MG/ML SYR IV PRN (10:41)
[2016-08-19] MEDS: ACETAMINOPHEN 325 MG TAB PO PRN ×2 (15:31→21:29)
[2016-08-19 16:03] VITALS: BP 105/76; PULSE 129; TEMP 36.6; O2SAT 98
[2016-08-19] MEDS: HYDROmorphone HCL 2 MG TAB PO PRN ×2 (17:17→23:45)
[2016-08-19] MEDS: ENOXAPARIN 40 MG/0.4 ML SYR SQ SCH (21:24)
[2016-08-20 00:20] VITALS: BP 119/81; PULSE 111; TEMP 36.4; O2SAT 98
[2016-08-20 01:00] VITALS: PULSE 98
[2016-08-20] MEDS: TAPENTADOL HCL 50 MG TAB PO PRN ×2 (01:12→08:29)
[2016-08-20] MEDS: HYDROmorphone HCL 2 MG TAB PO PRN (05:18)
[2016-08-20 07:32] VITALS: BP 138/87; PULSE 91; TEMP 36.4; O2SAT 100
[2016-08-20] MEDS ORDERED: SENNA 8.6 MG TAB PO SCH (08:00)
[2016-08-20] MEDS ORDERED: POLYETHYLENE (MIRALAX) 17 GM PACK PO SCH (08:00)
[2016-08-20] MEDS: METFORMIN HCL 500 MG TAB PO SCH (08:29)
[2016-08-20] MEDS: BACLOFEN 10 MG TAB PO SCH (08:29)
[2016-08-20] MEDS: BUMETANIDE 1 MG TAB PO SCH (08:30)
[2016-08-20] MEDS: INSULIN ASPART 100 UNITS/ML 3 ML PEN SC SCH (08:31)
--- NOTE | 2016-08-20 09:11 | Pain Management Progress Note ---
Pain Management Progress Note Date of Service Aug 20, 2016. Subjective Mr. Upton is a 61-year-old male with a history of left-sided radicular symptoms to his knee. He does have a history of an L3 to 5 fusion and was seen by Dr. Lynne during this admission and did not feel that this was secondary to lumbar radicular symptoms. He had a left sacroiliac joint injection yesterday with significant improvement in his pain. He has been able to ambulate with less pain and is eager for discharge this morning. No bowel or bladder incontinence motor weakness foot drop constitutional complaints or falls at this time are noted by the patient. Pain is manageable at about 4 out of 10 left lower extremity only Objective Vital Signs: Last Vital Signs Documentation Date Time Temp Pulse Resp B/P (MAP) Pulse Ox O2 Delivery O2 Flow Rate FiO2 08/20/16 07:32 36.4 91 18 138/87 (104) 100 08/20/16 00:20 Room Air Physical Exam: Awake alert noted 3 appearing in no acute distress sitting in his bed. He is pleasant and cooperative on exam There is a well-healed midline surgical incision over his lumbar spine minimal tenderness over his left sacroiliac joint 5 out of 5 strength bilateral lower extremities equal throughout with intact sensation and a negative straight leg raise bilaterally no ankle clonus cranial nerves are grossly intact Gait was not observed Laboratory Laboratory Findings 08/18/16 07:02 Assessment 1. Left Side inflammatory sacroiliitis 2. Lumbar postlaminectomy syndrome Recommendations 1. I'm pleased with the results of his left-sided sacroiliac joint injection. He would be good candidate for repeat should he have recurrence. 2. I recommend a course of outpatient physical therapy to further diminish his pain complaints. 3. No change to medications at this time but would caution against large volume prescribing of home narcotics. [employer] Voice Recognition This chart was completed in part utilizing [employer] Voice Recognition Software. Random word insertions, pronoun errors, and incomplete sentences are an occasional consequence of this system due to software limitations and ambient noise. Any questions or concerns about the content, text or information contained within the body of this dictation should be directly addressed to the provider for clarification.
--- NOTE | 2016-08-20 09:39 | Discharge Instructions ---
Discharge Instructions Date of Service Aug 20, 2016. Admission Reason for Admission: Left Lower Extremity Weakness Discharge Discharge Diagnosis / Problem: L Sacroilitis Discharge Goals Goal(s): Decrease discomfort, Improve disease control Activity Recommendations Activity Limitations: as noted below (Do home physical therapy) Do home physical therapy. Exercise your leg muscles and prevent them from getting stiff. Follow up with your PCP to discuss your pain management regime. We recommend NOT taking any more narcotic medications as an outpatient. . Instructions / Follow-Up Instructions / Follow-Up Please follow up at Dr. Betancur's office with JONATHAN Youngblood on Monday, August 22, 2016 at 8:50am. *If you need to reschedule this appointment please call the office at . Current Hospital Diet Patient's current hospital diet: Diabetes Type 2 Diet Discharge Diet Recommended Diet: Diabetes Type 2 Diet Pending Studies Studies pending at discharge: no Laboratory Results Hemoglobin A1c Test 06/26/16 06:11 Range/Units Estimated Average Glucose 283 mg/dl Hemoglobin A1c 11.5 H 4.5-5.6 % Medical Emergencies . Who to Call and When: Medical Emergencies: If at any time you feel your situation is an emergency, please call 911 immediately. . Non-Emergent Contact Non-Emergency issues call your: Primary Care Provider . . "Provider Documentation" section prepared by Gabbie Thompson. . VTE Core Measure Inpt VTE Proph given/why not?: Enoxaparin (Lovenox)CAIT, TShadiEAnastacia Sharp, SCD's
--- NOTE | 2016-08-20 09:59 | Discharge Summary ---
Discharge Summary Date of Service Aug 20, 2016. (Gabbie Thompson MD) Discharge Summary Admission Date: Aug 12, 2016 at 14:39 Discharge Date: Aug 20, 2016 Discharge Disposition: Home Principal Diagnosis: L sacro-ilitis Immunizations: History of Pneumococcal: Yes Procedures: SACROILITIS INJECTION 08/19/16: a solution containing 40 mg of Triamcinalone acetonide and 1.5cc of 0.5% Bupivacaine-MPF was injected by Dr Crouch from [facility]. He would be able to get this again if needed in the future. Consultations: [facility] (Gabbie Thompson MD) Medication Reconciliation Continued Medications: Bumetanide (Bumex) 1 Mg Tab 1 MG PO QAM, TAB Metformin Hcl (Glucophage) 500 Mg Tab 1000 MG PO BID, TAB Multiple Vitamins W/ Minerals (Mens 50+ Multi Vitamin &) 1 Tab Tab 1 TAB PO QAM Oxycodone/Acetaminophen 7.5MG/325MG (Oxycodone/Acetaminophen 7.5MG/325MG) 1 Tab Tab 1 TAB PO Q4H PRN for Pain, TAB Discharge Exam Review of Systems: Constitutional: No fever, No chills, No sweats, No weight loss, No weakness Eyes: No worsening of vision ENT: No hearing loss Respiratory: No cough, No sputum, No wheezing Cardiovascular: No chest pain, No orthopnea Abdomen: No pain, No nausea, No vomiting Musculoskeletal: No joint pain Genitourinary - Male: No hematuria, No dysuria, No urinary frequency Neurologic: No memory loss, No weakness Endocrine: No fatigue Integumentary: No rash Physical Exam: General Appearance: WD/WN, no apparent distress Eyes: normal inspection, PERRL ENT: hearing grossly normal Neck: supple, no JVD Respiratory/Chest: lungs clear, normal breath sounds, no respiratory distress Cardiovascular: regular rate, rhythm, no murmur Abdomen / GI: normal bowel sounds, non tender, soft Extremities: no calf tenderness, no pedal edema Neurologic/Psychiatric: mat maker II-XII nml as tested, alert, normal mood/affect Skin: no rash Lymphatic: no adenopathy (Gabbie Thompson MD) Hospital Course HPI: This is a 61 y/o male with a history of lumbar stenosis, radiculopathy, DM II, and lower extremity edema who presented for a direct admission from Dr. Betancur's office on 08/12 with left lower extremity weakness and pain. The patient complains of constant pain and weakness in the left lower extremity that has been going on for 4 months. The patient had an MRI of the lumbar spine in April 2016 which showed bulges in L3 to L5 with minor spinal canal narrowing. The patient had a L3 to L5 decompression and fusion on 06/25/[address] Lynne. He states that although the surgery improved his back pain, his leg pain and weakness has remained the same and has been getting progressively worse. He complains of severe aching pain that goes down his entire left lower extremity. Pain is sometimes sharp or can feel like burning and is often accompanied with numbness and tingling. The pain is exacerbated by certain movements, changes in position, weightbearing, or too much exertion. The pain is slightly dulled when he takes Percocet. The patient states that the pain is constant and has not been sleeping properly for months. At rest the patient currently rates his pain as a 7/10 aching pain. The patient states that he has no strength at all in his left lower extremity, and he also notes less severe weakness in his right lower extremity. The patient uses a walker to get around. The patient denies fevers, chills, sweats, chest pain, palpitations, claudication, cough, wheezing, shortness of breath, nausea, vomiting, abdominal pain, dysuria, hematuria, urinary retention, and paralysis. HOSPITAL COURSE: 61 yo M with chronic left leg and back pain - found to be due to left sided sacro-ilitis and lumbar postlaminectomy syndrome, underwent injection today. Concerns for his narcotic use / requests. Left leg sacroilitis Underwent injection 08/19/[address] Crouch Was able to walk around easily, denied any worsening of pain Nucynta / Dilaudid given as inpt but NOT to be given as outpatient Explained to pt we are not increasing his pain medication at this time as he just had injection Can apply ice if needed Type 2 DM, with A1c of 11.5% Metformin restarted Insulin sliding scale present Lower extremity edema Improving overall Continue Bumex 1mg daily Narcotic use Pt was reviewed in PDMP, concerns about his outpatient use , risk of misuse No scripts given VTE: SCDs, TEDS CODE STATUS: Full code DISPO: Discharged 08/20/16 Total Time Spent: Greater than 30 minutes This includes examination of the patient, discharge planning, medication reconciliation, and communication with other providers. (Gabbie Thompson MD) Resident Physician Supervision Note: I interviewed and examined the patient. Discussed with Dr. Thompson and agree with findings and plan as documented in the note. Any exceptions or clarifications are listed here: None Documented By: Perry Padron walking in halls, notes he's feeling better overall, Dr Moore reviewed dc plan including no new meds with pt while i was present and he expressed agreement and understanding, as did his mother. ROS otherwise negative except for as above vitals noted nad walking in [place] w walker no appearance of pain or distress sacroiliitis - stable for home post SI injection, outpt f/u (Perry Padron, Marni) Discharge Instructions Please refer to the electronic Patient Visit Report (Discharge Instructions) for additional information. (Gabbie Thompson MD) Follow-Up With PCP - Appt with Melinda Escamilla for Thursday (Gabbie Thompson MD) Additional Copies To Perry Padron D.O. Resident Tracking Resident Involvement: Resident Care Provided Care Provided: Adult Hospital Medicine (Gabbie Thompson MD)
[2016-08-20 10:25] VITALS: BP 138/87; PULSE 91; TEMP 36.4; O2SAT 100
[2016-09-01] MEDS ORDERED: OXYM1TAB PO (10:38)
[2016-09-01] MEDS ORDERED: HYDR2TAB48 PO (10:38)
== END 2016-08-20 11:03 | disposition home health service (06) | DRG 552 ==
LOC: C.4E 14:39
PROVIDERS: ADMIT Hospitalist; ATTEND Family Medicine
PROC: 3E0U3GC Introduction of Other Therapeutic Substance into Joints, Percutaneous Approach (ICD-10-PCS; principal; 2016-08-19)
DX: M46.1 Sacroiliitis, not elsewhere classified (principal); E11.9 Type 2 diabetes mellitus without complications

== ENCOUNTER 2016-08-27 04:17 | Emergency (ER) | payer BC ==
[~2016-08-27] VITALS: Ht 172.7 cm; Wt 67.0 kg
[~2016-08-27 04:17] MED LIST changes: -BISA-16 PO; +OXYC7.5T66 PO; -RXC5 PO
[2016-08-27 04:19] VITALS: TEMP 36.6; Ht 172.7 cm; Wt 67.0 kg
[2016-08-27] MEDS ORDERED: KETOROLAC TROMETHAMINE 30 MG/ML VIAL IV STA (04:51)
[2016-08-27] MEDS ORDERED: HYDROmorphone INJ 1 MG/ML SYR IV STA (04:51)
[2016-08-27 05:22] LABS: BASO % 0.2 %; BASO ABS # 0.02 K/uL (0-0.2); COMPLETE YES; EOS % 0.4 %; HEMATOCRIT 43.7 % (42-52); IG% 0.2 %; LYMPH % 24.6 %; MEAN CELL VOLUME 85.4 fL (80-100); MEAN CORPUSCULAR HEMOGLOBIN 30.7 pg (25-34); MEAN CORPUSCULAR HGB CONC 35.9 g/dl (32-36); MEAN PLATELET VOLUME 9.2 fL (7.4-10.4); MONO % 8.4 %; NEUT % 66.2 %; PLATELET COUNT 399 K/uL (130-400); RED BLOOD COUNT 5.12 M/uL (4.7-6.1); WHITE BLOOD COUNT 8.94 K/uL (4.8-10.8)
--- NOTE | 2016-08-27 05:32 | EMERGENCY ROOM VISIT NOTE ---
History Report prepared by Victor Manuel: Romeo Nichole Under the Supervision of: Dr. Sherita Trevizo D.O. First contact with patient: 04:31 Chief Complaint: LEG PAIN,LEG INJURY Stated Complaint: LEFT LEG PAIN IN SI JOINT History of Present Illness The patient is a 61 year old male who presents to the Emergency Room with complaints of severe and persistent left leg pain starting a few days ago. The patient had back surgery by Dr. Lynne. He received an SI joint injected by Dr. Crouch a few days ago without much relief. As per family, his pain worsened 2 days ago. He was evaluated by his PCP yesterday who prescribed him Oxymorphone 5 mg twice a day and Dilaudid every 6 hours. He got the prescription filled yesterday. He took one dose of oxymorphone last night and 2 doses of Dilaudid yesterday without relief. Tonight, the pain kept waking him up and he was unable to sleep as normal. As per family, the patient has had a reduced appetite. He did not have any recent falls or injuries. The patient denies fevers, chills, or any other complaints. Source of History: patient Onset: a few days ago Position: leg (left) Symptom Intensity: severe Timing: other (persistent) Modifying Factors (Relieving): other (oxymorphone and dilaudid without relief) Associated Symptoms: No fevers, No chills Review of Systems See HPI for pertinent positives & negatives. A total of 10 systems reviewed and were otherwise negative. Past Medical & Surgical Medical Problems: (1) Carpal tunnel syndrome (2) Left leg pain (3) Lower extremity weakness (4) Lumbar stenosis with neurogenic claudication Family History Cancer Diabetes mellitus Heart disease Hypertension Lung disease Social History Smoking Status: Never Smoker Alcohol Use: none Drug Use: none Marital Status: Housing Status: lives with significant other Occupation Status: disabled Current/Historical Medications Scheduled Bumetanide (Bumex), 1 MG PO QAM Metformin Hcl (Glucophage), 1,000 MG PO BID Multiple Vitamins W/ Minerals (Mens 50+ Multi Vitamin &), 1 TAB PO QAM Scheduled PRN Oxycodone/Acetaminophen 7.5MG/325MG (Oxycodone/Acetaminophen 7.5MG/325MG), 1 TAB PO Q4H PRN for Pain Allergies Coded Allergies: Codeine (Verified Adverse Reaction, Mild, VOMITTING, 08/27/16) Gabapentin (Verified Adverse Reaction, Unknown, SPEECH AND MEMORY PROBLEMS , 08/27/16) Pregabalin (Verified Adverse Reaction, Unknown, FELT DROWSY AND FORGOT THINGS, 08/27/16) Physical Exam Vital Signs Date Time Temp Pulse Resp B/P (MAP) Pulse Ox O2 Delivery O2 Flow Rate FiO2 08/27/16 05:57 74 20 132/74 98 Room Air 08/27/16 04:19 36.6 116 18 130/86 99 Room Air Physical Exam General: Patient appears very uncomfortable and is crying. HEENT: Head - normocephalic and atraumatic Pupils are equal, round, and reactive to light. Extraocular eye muscles are intact, and sclera are anicteric. Nose - moist nasal mucosa without discharge. Mouth - moist buccal mucosa. Oropharynx is nonerythematous and there is no tonsillar exudate or edema noted. Neck: Supple; no JVD, nuchal rigidity, cervical lymphadenopathy. Heart: Regular rate and rhythm. There is a normal S1 and S2 with no murmurs, clicks, or gallops appreciated. Lungs: Clear to auscultation bilaterally with no wheezes, rales, or rhonchi. Abdomen: Soft, completely nontender, nondistended, with good bowel sounds. There are no palpable pulsatile masses or hepatosplenomegaly. There is no guarding, rigidity, or rebound noted. Extremities: No evidence of cyanosis, clubbing, or edema. There are easily palpable peripheral pulses. Patient is pointing to the anterior and posterior thigh as to where the pain is located. Skin: warm and dry with good turgor and no rashes. Medical Decision & Procedures Laboratory Results 08/27/16 05:00 Red Blood Count 5.12, Mean Corpuscular Volume 85.4, Mean Corpuscular Hemoglobin 30.7, Mean Corpuscular Hemoglobin Concent 35.9, Mean Platelet Volume 9.2, Neutrophils (%) (Auto) 66.2, Lymphocytes (%) (Auto) 24.6, Monocytes (%) (Auto) 8.4, Eosinophils (%) (Auto) 0.4, Basophils (%) (Auto) 0.2, Neutrophils # (Auto) 5.91, Lymphocytes # (Auto) 2.20, Monocytes # (Auto) 0.75, Eosinophils # (Auto) 0.04, Basophils # (Auto) 0.02 08/27/16 05:00 Test 08/27/16 05:00 White Blood Count 8.94 K/uL (4.8-10.8) Red Blood Count 5.12 M/uL (4.7-6.1) Hemoglobin 15.7 g/dL (14.0-18.0) Hematocrit 43.7 % (42-52) Mean Corpuscular Volume 85.4 fL (80-100) Mean Corpuscular Hemoglobin 30.7 pg (25-34) Mean Corpuscular Hemoglobin Concent 35.9 g/dl (32-36) Platelet Count 399 K/uL (130-400) Mean Platelet Volume 9.2 fL (7.4-10.4) Neutrophils (%) (Auto) 66.2 % Lymphocytes (%) (Auto) 24.6 % Monocytes (%) (Auto) 8.4 % Eosinophils (%) (Auto) 0.4 % Basophils (%) (Auto) 0.2 % Neutrophils # (Auto) 5.91 K/uL (1.4-6.5) Lymphocytes # (Auto) 2.20 K/uL (1.2-3.4) Monocytes # (Auto) 0.75 K/uL (0.11-0.59) Eosinophils # (Auto) 0.04 K/uL (0-0.5) Basophils # (Auto) 0.02 K/uL (0-0.2) RDW Standard Deviation 38.8 fL (36.4-46.3) RDW Coefficient of Variation 12.4 % (11.5-14.5) Immature Granulocyte % (Auto) 0.2 % Immature Granulocyte # (Auto) 0.02 K/uL (0.00-0.02) Anion Gap 11.0 mmol/L (3-11) Est Creatinine Clear Calc Drug Dose 106.3 ml/min Estimated GFR () 118.9 Estimated GFR (Non- 102.6 BUN/Creatinine Ratio 19.4 (10-20) Calcium Level 9.5 mg/dl (8.5-10.1) Laboratory results per my review. Medications Administered Medications (Trade) Dose Ordered Sig/Brayan Route Start Time Stop Time Status Last Admin Dose Admin Ketorolac Tromethamine (Toradol Inj) 30 mg NOW STAT IV 08/27/16 04:51 08/27/16 04:53 DC 08/27/16 05:07 30 MG Hydromorphone HCl (Dilaudid Inj) 1 mg NOW STAT IV 08/27/16 04:51 08/27/16 04:53 DC 08/27/16 05:07 1 MG Procedure Dilaudid Inj 1 mg IV, Toradol Inj 30 mg IV ED Course 0431: Past medical records reviewed. The patient was evaluated in room B12B. A complete history and physical exam was performed. 0451: Dilaudid Inj 1 mg IV, Toradol Inj 30 mg IV 0522: I reevaluated the patient who feels better after the pain medications. 0552: Upon reevaluation, the patient is resting comfortably. I discussed findings and results with him. He verbalized agreement of the treatment plan. He was discharged home. Medical Decision The patient presents to the Emergency Room with complaints of left leg pain. Differential diagnosis includes but is not limited to exacerbation of left sided sciatica, lumbar radiculopathy, worsening spinal stenosis. His labs showed normal white blood cell count, stable H&H, normal renal function and glucose. The patient received a left sided SI joint injection on August 23 with good results. I attest that I have personally reviewed the patient's current medication list. Patient was found to have normal blood pressure on screening and does not require follow-up. The patient has a history of spinal stenosis with moderate left-sided radiculopathy. The patient was recently in the hospital and underwent an injection into the left SI joint with some relief of his discomfort proximally 3 days. Unfortunately, the pain has returned and is severe. The patient was prescribed opana and dilaudid for [id number] treatment of the patient's pain. I've encouraged close follow-up with pain management as well as the PCP. Impression Primary Impression: Left lumbar radiculopathy Additional Impression: Sciatica Scribe Attestation The scribe's documentation has been prepared under my direction and personally reviewed by me in its entirety. I confirm that the note above accurately reflects all work, treatment, procedures, and medical decision making performed by me. Departure Information Dispostion Home / Self-Care Referrals Osmin Betancur M.D. (PCP) Tiffany Crouch, DO Forms HOME CARE DOCUMENTATION FORM, IMPORTANT VISIT INFORMATION Patient Instructions ED Sciatica, My [facility] Additional Instructions Rest. Take the pain meds prescribed by Dr. Betancur very regularly. Follow up with pain management Problem Qualifiers
[2016-08-27 05:38] LABS: BUN/CREATININE RATIO 19.4 (10-20); CALCIUM 9.5 mg/dl (8.5-10.1); CREATININE 0.7 mg/dl (0.60-1.40); POTASSIUM 3.8 mmol/L (3.5-5.1)
[2016-08-27 05:57] VITALS: BP 132/74; PULSE 74; O2SAT 98
[2016-09-01] MEDS ORDERED: HYDR2TAB48 PO (10:38)
[2016-09-01] MEDS ORDERED: OXYM1TAB PO (10:38)
== END 2016-08-27 06:05 | disposition home or self-care (01) ==
LOC: C.EDB 04:18
DX: M54.16 Radiculopathy, lumbar region (principal); M54.40 Lumbago with sciatica, unspecified side; M48.06 Spinal stenosis, lumbar region; G56.00 Carpal tunnel syndrome, unspecified upper limb; G95.19 Other vascular myelopathies; Z79.84 Long term (current) use of oral hypoglycemic drugs; Z83.3 Family history of diabetes mellitus; Z82.49 Family history of ischemic heart disease and other diseases of the circulatory system

== ENCOUNTER 2016-10-14 11:03 | Inpatient (IN) | payer BC ==
[~2016-10-14] VITALS: Ht 172.7 cm; Wt 61.7 kg
[~2016-10-14 11:03] MED LIST changes: +HYDR2TAB48 PO; -OXYC7.5T66 PO
[2016-10-14] MEDS ORDERED: ACETAMINOPHEN 325 MG TAB PO PRN (11:15)
[2016-10-14] MEDS ORDERED: TRAMADOL HCL 50 MG TAB PO PRN (11:15)
[2016-10-14] MEDS ORDERED: HYDROCODONE/ACETAMOPHEN 5/325MG TAB PO PRN (11:15)
[2016-10-14] MEDS ORDERED: ONDANSETRON INJ 2 MG/ML 2 ML VIAL IV PRN (11:15)
[2016-10-14 12:01] VITALS: BP 153/84; PULSE 111; TEMP 36.7; O2SAT 97
[2016-10-14] MEDS ORDERED: IBUP-1450 PO (12:05)
[2016-10-14 12:06] VITALS: BP 153/84; PULSE 111; TEMP 36.7; O2SAT 97; Ht 172.7 cm; Wt 61.7 kg
[2016-10-14] MEDS: LACTATED RINGER'S 1000ML 1,000 ML IV SCH (12:34)
[2016-10-14 12:45] LABS: BASO % 0.4 %; BASO ABS # 0.03 K/uL (0-0.2); COMPLETE YES; EOS % 0.9 %; HEMATOCRIT 39.7 % (42-52); IG% 0.3 %; LYMPH ABS # 1.86 K/uL (1.2-3.4); MEAN CELL VOLUME 87.6 fL (80-100); MEAN CORPUSCULAR HEMOGLOBIN 31.1 pg (25-34); MEAN CORPUSCULAR HGB CONC 35.5 g/dl (32-36); MEAN PLATELET VOLUME 9.2 fL (7.4-10.4); MONO % 11.2 %; NEUT % 63.2 %; PLATELET COUNT 409 K/uL (130-400); RED BLOOD COUNT 4.53 M/uL (4.7-6.1); WHITE BLOOD COUNT 7.76 K/uL (4.8-10.8)
[2016-10-14 12:48] LABS: INR 0.9 (0.9-1.1); PROTHROMBIN TIME (PATIENT) 9.5 SECONDS (9.0-12.0)
[2016-10-14 13:04] LABS: BUN/CREATININE RATIO 22.5 (10-20); CALCIUM 9.5 mg/dl (8.5-10.1); CREATININE 0.6 mg/dl (0.60-1.40)
[2016-10-14 14:51] VITALS: BP 161/92; PULSE 99; TEMP 37.3; O2SAT 98
[2016-10-14] MEDS ORDERED: NURSING VERBAL MED ORDER ONE (16:30)
[2016-10-14] MEDS ORDERED: DIAZEPAM 5MG TAB PO SCH (16:45)
[2016-10-14] MEDS ORDERED: HYDROmorphone INJ 1 MG/ML SYR IV PRN (17:30)
--- NOTE | 2016-10-14 18:22 | HISTORY & PHYSICAL EXAMINATION ---
DATE OF ADMISSION: 10/14/2016 CHIEF COMPLAINT: Bilateral lower extremity weakness, some pain. HISTORY OF PRESENT ILLNESS: Evelio is a pleasant gentleman. He is 61 years of age. I have known him for 50 years. 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 He has an interesting past history. He presented to my office today actually seeing Dr. Wero Wright. Because of his lower extremity difficulty Dr. Wright felt it was more of a spinal problem which I agreed with and I saw him in consultation. Because of his profound weakness to the lower extremity, not as much pain, I admitted him directly from my office to the hospital for evaluation and treatment of his significant pathology and weakness. I took a good history of Mr. Upton here today. He was doing fine in 2015, starting to have some lower extremity difficulties in March and April of 2016 which is this year. He was seen at [facility]. It was determined he had spinal stenosis of the spine. He came to the operating room roughly 06/25/2016 and had surgery by Dr. Charles Lynne whose expertise I respect. After surgery, he progressed to have increasing lower extremity difficulty, increasing weakness. He needed a walker for support, which is not unusual, but the strength of the extremities never improved. He was actually admitted in August of this year, approximately 2 months ago increasing pain, increasing lower extremity difficulty, roughly August 12 or 2016. He was treated, evaluated and sent home with medication for pain. At that point in time, a referral to pain management was provided and Mr. Upton has been seeing Pain Management ever since. He actually saw Dr. Castillo a few days ago in clinic for a sacroiliac joint injection. He denies any fever, sweats, chills, exposure. He has a recent onset of diabetes but that would be only contributing factor. Of interest is the fact that a year ago, his right hand started cramping up on him, he had difficulty flexing and extending his fingers. This led to a hand specialist seeing him, performing a series of trigger finger releases to his right hand. PAST MEDICAL HISTORY: Recent onset of type 2 diabetes mellitus. No carcinoma, no hypertension, no COPD, no GI disturbances. ALLERGIES: GABAPENTIN AND CODEINE. PAST SURGICAL HISTORY: Include lumbar spine surgery June of this year, a 2-level decompression fusion and appendectomy, also hand surgery. SOCIAL HISTORY: No history of smoking ever and very minimal alcohol use. MEDICATIONS: Include metformin on a b.i.d. basis along with medication for pain. REVIEW OF SYSTEMS: He denies any blurred vision, double vision, tinnitus, vertigo, any ocular issues, no swallowing issues, no apparent adenopathy. He does wear hearing aids. Denies any headaches. Denies upper extremity difficulties. If not stated, he has no fever, sweats, chills. Denies any chest pain, shortness of breath, asthma. Denies any angina, palpitations. Denies nausea, vomiting, urgency, frequency, dysuria. Denies abdominal pain or distention. His major positive review is musculoskeletal. He states his upper extremities are in pretty good shape at this point in time. He still has slowness to extend his right hand, right fingers. He has profound weakness to the quadriceps muscles bilaterally. His left leg hurts him more than the right hand side. He cannot lift against gravity, in fact his strength would be 1/5 at best bilaterally, possibly 0/5. He has excellent dorsiflexion and plantarflexion of his feet. Neurologic examination continues to demonstrate adequate Achilles reflex, adequate dorsiflexion of his feet, no upper motor neuron issues. 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 Reflex examination normal, I would grade him at 1/4. His lower extremities are completely out as far as his knee jerk reflex is concerned. It is 0/4. He has no fasciculations, no clonus, no [place] sign. He has significant muscle atrophy to the bilateral lower extremities and it is symmetric. Constitutional: He has had a 40-pound weight loss now in the last one-half year. I did not do a rectal examination here today on Mr. Upton. He cannot stand without the use of a walker, his legs will collapse on him. Images: We are just in the process of getting some images tonight including an MRI scan of his lumbar spine. He had x-rays in the office which demonstrates great fixation of the spine, a 2 level fusion, L3, L4, and L5 lumbar spine; good placement of pedicle screws. ASSESSMENT: Delightful gentleman, 61 years of age with bilateral lower extremity difficulty, paresthesias and profound weakness. Also a diabetic. Relatively recent spine surgery, which will be June 2016. DISPOSITION: At this point, I am admitting the patient to my care for evaluation and treatment. I am getting medical management involved. We are imaging his lumbar spine here tonight which seems to be the most the root of his problem if anywhere. We may have to further investigate the thoracic spine or even the cervical spine for any type of pathology. This could be in addition to simple cauda equina compression, it could be an autoimmune issue, some sort of AV malformation, it could be a multiple sclerosis problem or unusual nervous system disorder as well. On that statement I will be ordering a neurology consultation in addition. We will give him some hydration and some medication for pain, again image him and further treatment to be evaluated. His condition remains very guarded and we are very concerned.
[2016-10-14] MEDS: OXYCODONE/ACETAMINOPHEN 10/325MG TAB PO PRN (19:37)
[2016-10-14] MEDS ORDERED: HydrALAZINE HCL 20 MG/ML VIAL IV. PRN (20:30)
[2016-10-14] MEDS ORDERED: GLUCAGON FOR INJ 1 MG VIAL SQ PRN (20:30)
[2016-10-14] MEDS ORDERED: GLUCOSE 40% GEL 15 GM TUBE PO PRN (20:30)
[2016-10-14] MEDS ORDERED: DEXTROSE 50% 50 ML SYR IV PRN (20:30)
[2016-10-14] MEDS ORDERED: GLUCOSE 10 TABS/TUBE PO PRN (20:30)
--- NOTE | 2016-10-14 20:50 | Medical Consult ---
Consultation Date of Consultation: Oct 14, 2016. Attending Physician: Neto Freeman DO Reason for Consultation: Medical management, diabetes History of Present Illness This is a 61 y/o male with a history of DM II, lumbar stenosis w/radiculopathy s /p lumbar decompression and fusion 06/25/16 who presents with lower extremity weakness and paresthesias. The patient was directly admitted to the hospital by Dr. Freeman for further evaluation of his lower extremity symptoms, which have been persistent since his lumbar decompression and fusion back in June. Medicine is consulted for medical management. The patient complains of 7/10 sharp pain in his right buttock and radiating down his right leg down to his mid -calf. He complains of a 2/10 pain on his left side with the same distribution. He complains of lower extremity weakness, stating that he cannot lift his legs on his own anymore. He now requires a rolling walker for ambulation. He also complains of numbness/tingling in both lower extremities from about the knees down. He states that he occasionally becomes short of breath but denies any dyspnea currently. The patient denies fevers, chills, sweats, chest pain, palpitations, claudication, cough, wheezing, nausea, vomiting, abdominal pain, dysuria, hematuria, urinary retention, paralysis. Past Medical/Surgical History Medical Problems: (1) Left lumbar radiculopathy Status: Acute (2) Lumbar radiculopathy Status: Acute (3) Sacroiliac joint dysfunction of left side Status: Acute (4) Sciatica Status: Acute (5) Sciatica of left side Status: Acute Diabetes mellitus type 2 Family History Cancer Diabetes mellitus Heart disease Hypertension Lung disease Social History Smoking Status: Never Smoker Smokeless Tobacco Use: No Alcohol Use: socially (beer) Drug Use: none Marital Status: Housing Status: lives with significant other Occupation Status: disabled Allergies Coded Allergies: Codeine (Verified Adverse Reaction, Mild, VOMITTING, 08/27/16) Gabapentin (Verified Adverse Reaction, Unknown, SPEECH AND MEMORY PROBLEMS , 08/27/16) Pregabalin (Verified Adverse Reaction, Unknown, FELT DROWSY AND FORGOT THINGS, 08/27/16) Current Inpatient Medications Current Inpatient Medications Medications (Trade) Dose Ordered Sig/Brayan Route Start Time Stop Time Status Last Admin Dose Admin Lactated Ringer's 1,000 ml @ 15 mls/hr Q24H IV 10/14/16 11:15 11/13/16 11:14 10/14/16 12:34 15 MLS/HR Acetaminophen (Tylenol Tab) 650 mg Q6H PRN PO 10/14/16 11:15 11/13/16 11:14 Docusate Sodium (coLACE CAP) 100 mg DAILY PO 10/15/16 09:00 11/14/16 08:59 Ondansetron HCl (Zofran Inj) 4 mg Q6H PRN IV 10/14/16 11:15 11/13/16 11:14 Tramadol HCl (Ultram Tab) 50 mg Q8H PRN PO 10/14/16 11:15 11/13/16 11:14 Diazepam (Valium Tab) 5 mg TODAY@1645 PO 10/14/16 16:45 10/14/16 22:00 Oxycodone/ Acetaminophen (Percocet 10-325MG Tab) 2 tab Q4H PRN PO 10/14/16 17:30 10/28/16 17:29 10/14/16 19:37 2 TAB Hydromorphone HCl (Dilaudid Inj) 1 mg Q3HWA PRN IV 10/14/16 17:30 10/28/16 17:29 Review of Systems See HPI for pertinent positives and negatives. All other systems reviewed and negative. Physical Exam Date Time Temp Pulse Resp B/P (MAP) Pulse Ox O2 Delivery O2 Flow Rate FiO2 10/14/16 14:51 37.3 99 16 161/92 (115) 98 Room Air 10/14/16 12:06 36.7 111 16 153/84 97 Room Air 10/14/16 12:01 36.7 111 16 153/84 (107) 97 Room Air General appearance: Well-developed, well-nourished, no apparent distress Head: Normocephalic, atraumatic Eyes: Normal inspection, PERRL, EOMI ENT: Normal ENT inspection, hearing grossly normal, pharynx normal Neck: Supple, no JVD, trachea midline Respiratory/Chest: Lungs clear to auscultation, normal breath sounds, no respiratory distress Cardiovascular: Regular rate & rhythm, no gallop, no murmur Abdomen/GI: Normal bowel sounds, non-tender, soft Extremities/Musculoskeletal: +Muscle atrophy of lower extremities bilaterally. Pt unable to lift either leg off the bed on his own but has good plantarflexion and dorsiflexion strength bilaterally. Lower extremities TTP bilaterally. No calf tenderness, no pedal edema Neurological/Psych: Alert, normal mood/affect, oriented x 3 Skin: Normal color, warm/dry, no rash Laboratory Results Last 24 Hours Test 10/14/16 12:14 White Blood Count 7.76 K/uL Red Blood Count 4.53 M/uL Hemoglobin 14.1 g/dL Hematocrit 39.7 % Mean Corpuscular Volume 87.6 fL Mean Corpuscular Hemoglobin 31.1 pg Mean Corpuscular Hemoglobin Concent 35.5 g/dl Platelet Count 409 K/uL Mean Platelet Volume 9.2 fL Neutrophils (%) (Auto) 63.2 % Lymphocytes (%) (Auto) 24.0 % Monocytes (%) (Auto) 11.2 % Eosinophils (%) (Auto) 0.9 % Basophils (%) (Auto) 0.4 % Neutrophils # (Auto) 4.91 K/uL Lymphocytes # (Auto) 1.86 K/uL Monocytes # (Auto) 0.87 K/uL Eosinophils # (Auto) 0.07 K/uL Basophils # (Auto) 0.03 K/uL RDW Standard Deviation 40.6 fL RDW Coefficient of Variation 12.7 % Immature Granulocyte % (Auto) 0.3 % Immature Granulocyte # (Auto) 0.02 K/uL Prothrombin Time 9.5 SECONDS Prothromb Time International Ratio 0.9 Sodium Level 139 mmol/L Potassium Level 5.0 mmol/L Chloride Level 104 mmol/L Carbon Dioxide Level 27 mmol/L Anion Gap 8.0 mmol/L Blood Urea Nitrogen 14 mg/dl Creatinine 0.60 mg/dl Est Creatinine Clear Calc Drug Dose 114.2 ml/min Estimated GFR () 126.7 Estimated GFR (Non- 109.3 BUN/Creatinine Ratio 22.5 Random Glucose 177 mg/dl Calcium Level 9.5 mg/dl Assessment & Plan 61 y/o male with a history of DM II, lumbar stenosis w/radiculopathy s/p lumbar decompression and fusion 06/25/16 who presents with lower extremity weakness and paresthesias. Presents direct admission by Dr. Freeman, hospitalist consulted for medical management. Lower extremity weakness/paresthesias -Pain management, DVT prophylaxis, and PT/OT as per primary team -MRI lumbar spine pending -Neurology consulted Diabetes mellitus type 2--last HgbA1c checked on 06/26/16 was 11.5 -Hold metformin -Insulin sliding scale -Check BSGs q ac and qhs -Recheck HgbA1c -Diet changed to diabetic diet Elevated BP w/o diagnosis of HTN--likely elevated secondary to pain -Cover with hydralazine 10 mg IV q6h prn SBP >180 Code Status -Level I, FULL RESUSCITATION STATUS Thank you for this consultation. We will continue to follow. Attending Addendum: I have physically seen and examined this patient, have directed the physician assistants medical activities, and agree with the H&P as noted above with the following exceptions: NONE The patient is awake, well-developed and adequately nourished, alert and oriented 3, normocephalic and atraumatic, lying in bed and in no acute distress. HEENT--PERRL, EOMI, mucous membranes and oropharynx dry. Neck--supple, no JVD or bruits, thyroid normal, trachea midline, no adenopathy. Heart--normal S1 and S2, no extra beats, no murmurs, rubs or gallops. Lungs--clear bilaterally with good air movement, no respiratory distress, no accessory muscle use. Abdomen--normal bowel sounds and soft, nontender and nondistended, no hernias or masses, no organomegaly. Extremities--no cyanosis, clubbing or edema. There are good distal pulses b/l. Dermatologic--normal skin turgor, normal color, warm and dry, no abnormal lymph nodes, no rash. Neurologic--cranial nerves II through XII grossly intact. Lower extremities-- unable to lift either leg off the bed. Normal plantar flexion and dorsiflexion bilaterally. Rheumatologic--muscle atrophy bilateral lower extremities/tender to palpation bilaterally. Psychiatric--normal affect. Assessment and Plan: 1. Lower extremity weakness/paresthesias--admitted to the medical surgical floor per primary team. MRI lumbar spine is pending and neurology is consulted. 2. Diabetes mellitus type 2--hold metformin. Place on Accu-Cheks before meals and at bedtime with NovoLog coverage per scale. Last hemoglobin A1c was 11.5 on 06/26/2016. Recheck hemoglobin A1c. Diabetic diet. 3. Elevated blood pressure-- If elevated blood pressure persists after pain is controlled, with place on hydralazine 10 mg IV every 4 hours when necessary systolic blood pressure greater than 180.
[2016-10-14] MEDS: INSULIN ASPART 100 UNITS/ML 3 ML PEN SC SCH (21:00)
--- NOTE | 2016-10-14 21:32 | DIAGNOSTIC IMAGING REPORT ---
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 History of metal in the eyes. COMPARISON: CT head 05/10/2009 TECHNIQUE: 3 radiographic views of the orbits FINDINGS: No radiopaque foreign body identified. No facial bone fracture. Right maxillary sinus is nearly completely opacified. There is partial opacification of the ethmoid air cells. IMPRESSION: 1. Negative for radiopaque foreign body. 2. Nearly completely opacified right maxillary sinus suggests severe sinus disease. At least moderate maxillary sinus disease was seen on comparison head CT, 05/10/2009. The above report was generated using voice recognition software. It may contain grammatical, syntax or spelling errors. Electronically signed by: Haris Resendiz M.D. 10/14/2016 9:31 PM Dictated Date/Time: 10/14/2016 9:29 PM
--- NOTE | 2016-10-14 21:33 | DIAGNOSTIC IMAGING REPORT ---
CHEST 2 VIEWS ROUTINE HISTORY: 61 years-old Male preoperative exam. The patient is asymptomatic. COMPARISON: Chest radiograph 06/16/2016 TECHNIQUE: Frontal and lateral views of the chest FINDINGS: Cardiomediastinal and hilar silhouettes are within normal limits. No pneumothorax, pleural effusion or focal airspace consolidation. The bones appear grossly intact. Moderate degenerative changes involve the left AC joint. Multilevel bridging osteophytes are seen throughout the spine. IMPRESSION: No acute cardiopulmonary process. The above report was generated using voice recognition software. It may contain grammatical, syntax or spelling errors. Electronically signed by: Haris Resendiz M.D. 10/14/2016 9:32 PM Dictated Date/Time: 10/14/2016 9:31 PM
[2016-10-14 22:55] VITALS: BP 137/49; PULSE 106; TEMP 36.6; O2SAT 97
[2016-10-14] MEDS ORDERED: GADAVIST IV PRN (23:00)
--- NOTE | 2016-10-14 23:21 | DIAGNOSTIC IMAGING REPORT ---
LUMBAR SPINE COMBINATION CLINICAL HISTORY: 61 years-old Male with paralysis. Patient presents with muscle loss in legs with pain and numbness radiating to the bilateral legs. Recent steroid injection 2 weeks prior. History of prior back surgery. COMPARISON: Lumbar spine MRI 08/12/2016, lumbar spine radiographs 06/25/2016. TECHNIQUE: Multiplanar, multi sequence MRI of the lumbar spine was performed both with and without the use of 6 mL Gadavist. 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 There is been prior laminectomy with posterior interbody lucrecia and screw fixation at the L3-L5 levels. Disc spacers seen at L4-L5. Loculated T2 hyperintense collection adjacent to the posterior aspect of the epidural space at L3-L4 has decreased in size from comparison study now measuring 0.8 x 2.5 x 3.7 cm in AP, transverse and craniocaudal dimensions, previously 2.0 x 2.5 x 5.7 cm. This again demonstrates peripheral enhancement as well as enhancement of the internal septations. There is no evidence of discitis osteomyelitis. There remains a considerable amount of soft tissue edema at the surgical levels. No focal fracture, bone marrow edema or marrow replacing process. Schmorl's node is seen involving the inferior endplate of L2. Moderate amount of paraspinal muscular atrophy is again seen. T12-L1: Mild intervertebral disc space narrowing and posterior disc osteophyte complex formation is seen on the sagittal imaging alone causing effacement of the ventral thecal sac. No significant central canal or foraminal narrowing. L1-L2: No central canal or neural foraminal stenosis. Mild facet arthropathy. Unchanged. L2-L3: There is mild intervertebral disc space narrowing and facet arthropathy. No central canal or foraminal narrowing. Unchanged L3-L4: Posterior spondylitic spurring with broad-based posterior disc bulge and small central disc extrusion extending 3 mm inferiorly effaces the ventral thecal sac thousand and central canal narrowing. There is associated moderate facet arthropathy with resultant mild bilateral foraminal narrowing. No change. L4-L5: Moderate intervertebral disc space narrowing with posterior spondylitic spurring and circumferential annular disc bulge effaces the ventral thecal sac. There is associated moderate facet arthropathy causing mild bilateral foraminal narrowing. Central canal is generally patent. L5-S1: Moderate facet arthropathy with trace left facet effusion. No central canal or foraminal narrowing. Unchanged. IMPRESSION: 1. Prior laminectomy with posterior interbody lucrecia and screw fixation at L3-L5. The previously described loculated fluid collection adjacent to the posterior thecal sac has decreased in size from comparison study, however still demonstrates peripheral and internal septal enhancement with adjacent considerable amount of soft tissue edema. This would suggest a seroma, however a hematoma or abscess could have a similar appearance. 2. No evidence of discitis osteomyelitis. 3. Multilevel discogenic degeneration and facet arthropathy as detailed above without high-grade central canal or foraminal narrowing. No significant change from comparison study dated 08/12/2016. The above report was generated using voice recognition software. It may contain grammatical, syntax or spelling errors. Electronically signed by: Haris Resendiz M.D. 10/14/2016 11:20 PM Dictated Date/Time: 10/14/2016 11:03 PM
[2016-10-15] MEDS: OXYCODONE/ACETAMINOPHEN 10/325MG TAB PO PRN ×4 (01:00→19:55)
[2016-10-15 07:54] VITALS: BP 122/86; PULSE 94; TEMP 36.3; O2SAT 99
[2016-10-15 07:59] VITALS: O2SAT 99
[2016-10-15 07:59] LABS: ESTIMATED AVERAGE GLUCOSE 134 mg/dl; HA1C FLAG Normal (Normal)
[2016-10-15] MEDS: INSULIN ASPART 100 UNITS/ML 3 ML PEN SC SCH ×4 (08:00→21:00)
[2016-10-15 08:10] LABS: HEMATOCRIT 40.7 % (42-52); MEAN CELL VOLUME 88.7 fL (80-100); MEAN CORPUSCULAR HEMOGLOBIN 30.9 pg (25-34); MEAN CORPUSCULAR HGB CONC 34.9 g/dl (32-36); MEAN PLATELET VOLUME 9.2 fL (7.4-10.4); PLATELET COUNT 364 K/uL (130-400); RED BLOOD COUNT 4.59 M/uL (4.7-6.1); WHITE BLOOD COUNT 6.11 K/uL (4.8-10.8)
--- NOTE | 2016-10-15 08:37 | ORTHOPEDICS PROGRESS NOTE ---
DATE OF ADMISSION: 10/14/2016 SUBJECTIVE: Minimal complaints of pain. Still continued profound weakness to his lower extremities. Denies any fevers, sweats, chills, any chest pain or shortness of breath. Does have loss of sensation and profound loss of strength. OBJECTIVE: Vital signs are stable. Hemoglobin is 14 1. His MRI was interesting in that it did not show any neurocompressive lesions in the lumbar area behind L3, L4 or L5; there was nothing on the MRI to explain his profound weakness. Examination remains unchanged with weakness, but no hyperreflexia. Good motor strength of his calves. IMPRESSION: Spinal cord compression, possible tumor ____ carcinoma. DISPOSITION: We have an EMG nerve conduction study ordered. Neurology consultation; have ordered a sed rate and an MRI scan of the thoracic spine.
[2016-10-15 08:51] LABS: BUN/CREATININE RATIO 17.1 (10-20); CALCIUM 9.8 mg/dl (8.5-10.1); CREATININE 0.56 mg/dl (0.60-1.40); POTASSIUM 4.1 mmol/L (3.5-5.1)
[2016-10-15] MEDS: DOCUSATE SODIUM 100 MG CAP PO SCH (09:06)
--- NOTE | 2016-10-15 09:14 | Neurology Consultation ---
Neurology Consultation Date of Consultation: Oct 15, 2016. Attending Physician: Neto Freeman DO Primary Care Physician: Osmin Betancur M.D. Reason for Consultation: Bilateral leg weakness History of Present Illness Source: patient, clinic records, hospital records This is a 61-year-old male who presents with progressive bilateral leg weakness and pain. He reports that before his lumbar surgery in June, he was mostly is experiencing pain in his bilateral legs. Initially thought that his left was worse than his right but after some pain medicine injections in his back the left leg is feeling a little bit better. He denied any weakness before surgery but reports progressive weakness after his surgery in June. It appears that his symptoms initially started in March of this year, although I cannot get the patient to confirm that as he was somewhat of a poor historian. This may be partially secondary to meeting medications that he got right before my examination. Upon reviewing the outpatient chart it does not look like he had seen Dr. Jensen in 2014 for hand cramping and weakness. He got multiple EMGs. Last EMG of the right upper extremity was done in 2015. He was felt to have a combination of carpal tunnel syndrome and ulnar neuropathy. Patient reports he had surgery in both his hand and his elbow. Otherwise in terms of his current symptoms he denies any new numbness or weakness of his upper extremities. He does report that since surgery he also has some altered sensation mostly in his distal lower extremity spine bilaterally from the mid calf down. Also expresses some dysesthesias in the right anterior thigh. Reports that sometimes that area also gets red. He reports progressive weakness since June. His noted muscle atrophy. Reports that he did not need any assist devices before surgery in June but now is needing a walker. He denies any significant back pain at this time. He reports that most pain is in his legs bilaterally, currently right greater than left. MRI of L-spine report and images reviewed by myself. There is noted to be postoperative changes and degenerative changes but no signs of cord signal changes or significant impingement. Radiology also noted likely seroma, most likely secondary to surgery, but cannot rule out hematoma or abscess. Patient does not appear to have any symptoms consistent with an abscess infection. Basic labs were reviewed and unremarkable. Patient does not have a fever. Past Medical/Surgical History Medical Problems: (1) Left lumbar radiculopathy Status: Acute (2) Lumbar radiculopathy Status: Acute (3) Sacroiliac joint dysfunction of left side Status: Acute (4) Sciatica Status: Acute (5) Sciatica of left side Status: Acute Past medical history significant for diabetes type 2. Surgical history severe for a lumbar laminectomy and fusion in June of L3 through L5, appendectomy, carpal tunnel surgery and ulnar surgery of the right upper extremity Family History Family history unremarkable. 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 No tobacco use. Rare focal use. Currently using a walker for ambulation Smokeless Tobacco Use: No Alcohol Use: socially (beer) Drug Use: none Marital Status: Housing Status: lives with significant other Occupation Status: disabled Allergies Coded Allergies: Codeine (Verified Adverse Reaction, Mild, VOMITTING, 08/27/16) Gabapentin (Verified Adverse Reaction, Unknown, SPEECH AND MEMORY PROBLEMS , 08/27/16) Pregabalin (Verified Adverse Reaction, Unknown, FELT DROWSY AND FORGOT THINGS, 08/27/16) Current Inpatient Medications Current Inpatient Medications Medications (Trade) Dose Ordered Sig/Brayan Route Start Time Stop Time Status Last Admin Dose Admin Lactated Ringer's 1,000 ml @ 15 mls/hr Q24H IV 10/14/16 11:15 11/13/16 11:14 10/14/16 12:34 15 MLS/HR Acetaminophen (Tylenol Tab) 650 mg Q6H PRN PO 10/14/16 11:15 11/13/16 11:14 Docusate Sodium (coLACE CAP) 100 mg DAILY PO 10/15/16 09:00 11/14/16 08:59 Ondansetron HCl (Zofran Inj) 4 mg Q6H PRN IV 10/14/16 11:15 11/13/16 11:14 Tramadol HCl (Ultram Tab) 50 mg Q8H PRN PO 10/14/16 11:15 11/13/16 11:14 Oxycodone/ Acetaminophen (Percocet 10-325MG Tab) 2 tab Q4H PRN PO 10/14/16 17:30 10/28/16 17:29 10/15/16 07:33 2 TAB Hydromorphone HCl (Dilaudid Inj) 1 mg Q3HWA PRN IV 10/14/16 17:30 10/28/16 17:29 Glucose (Glucose 40% Gel) 15-30 GRAMS 15 GRAMS... UD PRN PO 10/14/16 20:30 11/13/16 20:29 Glucose (Glucose Chew Tab) 4-8 Tablets 4 Tabl... UD PRN PO 10/14/16 20:30 11/13/16 20:29 Dextrose (Dextrose 50% 50ML Syringe) 25-50ML OF 50% DW IV FOR... UD PRN IV 10/14/16 20:30 11/13/16 20:29 Glucagon (Glucagon Inj) 1 mg UD PRN SQ 10/14/16 20:30 11/13/16 20:29 Insulin Aspart (novoLOG ASPART) SLIDING SCALE G... ACHS SC 10/14/16 21:00 11/13/16 20:59 Hydralazine HCl (HydrALAZINE INJ) 10 mg Q6H PRN IV. 10/14/16 20:30 11/13/16 20:29 Gadobutrol (Gadavist) 6 mmol UD PRN IV 10/14/16 23:00 10/18/16 22:59 Review of Systems Complete review of systems otherwise negative except for the above noted in history of present illness Physical Exam Vital Signs (Past 24 Hrs): Date Time Temp Pulse Resp B/P (MAP) Pulse Ox O2 Delivery O2 Flow Rate FiO2 10/15/16 07:59 99 Room Air 10/15/16 07:54 36.3 94 13 122/86 (98) 99 Room Air 10/15/16 07:25 Room Air 10/14/16 23:30 Room Air 10/14/16 22:55 36.6 106 16 137/49 (78) 97 Room Air 10/14/16 15:45 Room Air 10/14/16 14:51 37.3 99 16 161/92 (115) 98 Room Air 10/14/16 12:06 36.7 111 16 153/84 97 Room Air 10/14/16 12:01 36.7 111 16 153/84 (107) 97 Room Air Gen.: Patient is alert and sitting in bed, in no acute distress. HEENT: Normocephalic /atraumatic, no scleral icterus Heart: Regular rate and rhythm Extremities: No gross deformities or rashes noted Neurological examination: Mental status: Patient is fairly lethargic and falls asleep easily. Patient is alert and oriented x3. Attention normal for the situation. Patient was able to give his own history but at times appeared to be a poor historian. Uncertain if related to recent pain medication administration. Speech is fluent without any dysarthria or aphasia noted Cranial nerve: Funduscopic examination was unremarkable. No papilledema. Pupils equally round and reactive to light. Extraocular muscles intact without nystagmus. No facial asymmetry noted. Facial sensation intact. Tongue is midline. Good palatal elevation. Good shoulder shrug bilaterally. Hearing grossly intact to voice. Strength: 5/5 both proximal and distally in bilateral upper extremities. Right hip flexion 2/5, left hip flexion 1/5, and knee extension and flexion 2/5 bilaterally, dorsiflexion 3/5, plantarflexion 4/5. Noted significant atrophy mostly in the proximal thigh muscles. Patient was able to sit up without any assistance. Sensation: Grossly intact to light touch in all extremities, but noted some dysesthesias with light touch to left lateral calf and decreased sensation in bilateral medial calf. Deep tendon reflexes: +1 in bilateral biceps, brachioradialis and +0 in patellar and Achilles. Toes were downgoing to plantar stimulation on the right but had a questionable upgoing toe on the left Coordination: Patient had good finger to nose without dysmetria Station within the bed was normal Laboratory Results Past 24 Hours: 10/15/16 07:25 10/15/16 07:25 Test 10/14/16 12:14 10/14/16 22:56 10/15/16 07:25 Immature Granulocyte % (Auto) 0.3 % White Blood Count 7.76 K/uL (4.8-10.8) Red Blood Count 4.53 M/uL (4.7-6.1) 4.59 M/uL (4.7-6.1) Hemoglobin 14.1 g/dL (14.0-18.0) Hematocrit 39.7 % (42-52) Mean Corpuscular Volume 87.6 fL (80-100) 88.7 fL (80-100) Mean Corpuscular Hemoglobin 31.1 pg (25-34) 30.9 pg (25-34) Mean Corpuscular Hemoglobin Concent 35.5 g/dl (32-36) 34.9 g/dl (32-36) Platelet Count 409 K/uL (130-400) Mean Platelet Volume 9.2 fL (7.4-10.4) 9.2 fL (7.4-10.4) Neutrophils (%) (Auto) 63.2 % Lymphocytes (%) (Auto) 24.0 % Monocytes (%) (Auto) 11.2 % Eosinophils (%) (Auto) 0.9 % Basophils (%) (Auto) 0.4 % Neutrophils # (Auto) 4.91 K/uL (1.4-6.5) Lymphocytes # (Auto) 1.86 K/uL (1.2-3.4) Monocytes # (Auto) 0.87 K/uL (0.11-0.59) Eosinophils # (Auto) 0.07 K/uL (0-0.5) Basophils # (Auto) 0.03 K/uL (0-0.2) Immature Granulocyte # (Auto) 0.02 K/uL (0.00-0.02) Prothrombin Time 9.5 SECONDS (9.0-12.0) Prothromb Time International Ratio 0.9 (0.9-1.1) Estimated Average Glucose 134 mg/dl Hemoglobin A1c 6.3 % (4.5-5.6) Bedside Glucose 130 mg/dl (70-99) RDW Standard Deviation 41.2 fL (36.4-46.3) RDW Coefficient of Variation 12.7 % (11.5-14.5) Anion Gap 6.0 mmol/L (3-11) Est Creatinine Clear Calc Drug Dose 122.4 ml/min Estimated GFR () 130.3 Estimated GFR (Non- 112.4 BUN/Creatinine Ratio 17.1 (10-20) Calcium Level 9.8 mg/dl (8.5-10.1) Imaging As noted above in history of present illness Impression This is a 61-year-old male with complaints of bilateral lower extremity pain status post lumbar laminectomy and fusion in June of L3 through L5, with significant progressive weakness of bilateral lower extremity since that time. Pattern of weakness appears to be more proximal compared to distal. Also noted significant muscle atrophy more proximally. Most likely etiology would be a thoracic spinal lesion. Other differential diagnosis could include in the ADAN midline stroke, or a pelvic hematoma (less likely to be bilateral). Can also consider an neuromuscular junction disease, but considering that only his legs are involved and I feel that this is less likely as well. In addition pattern of symptoms do not seem to be consistent with a Guillain-Deras type phenomenon. Plan I have ordered an MRI of the T-spine with and without contrast for further evaluation We'll order some additional labs to include ESR, CRP, CK, B vitamins, SPEP with immunofixation. Could consider acetylcholine antibodies in the future, but I feel like Guillain-Deras is unlikely at this time. Could consider empiric IV steroids to see if this would improve his weakness. would have to be used with some caution in the setting of diabetes. Follow-up PT/OT evaluation and recommendations for discharge planning. Patient will likely need inpatient rehabilitation. We may have to consider an EMG as an outpatient if no specific etiology is found in hospital. If there is any questions or concerns, feel free to call/page me.
--- NOTE | 2016-10-15 09:41 | Medical Student: [facility] ---
Med Student History & Physical Date & Time of Service: Oct 15, 2016 at 09:05 Chief Complaint: Paralysis Of Lower Extremities Primary Care Physician: Osmin Betancur M.D. History of Present Illness Source: patient, clinic records, hospital records 61 year old male presents with a chief complaint right and left lower leg weakness and pain. Prior to June 2016, he just had pain in both is legs. Upon further examination, he was found to have lumbar spinal stenosis and underwent a L3-L5 laminectomy in June. Since June he feels that his pain has gotten worse but he has also had a progressive but rapid muscle weakness in both legs ( although the left is slightly worse than the right). He has been seen in the ED multiple times and even hospitalized for a week in July due to the pain and weakness. The muscle weakness has progressed so much so that now he recently started using a walker. He feels that he is loosing muscle mass in both his legs but sometimes he feels his muscles twitching, especially in the shower. He feels numbness and tingling below the knees but denies feeling it anywhere else. He is not sure if the numbness and tingling is related to his muscle weakness or if it has to do with getting used to his walker. He denies any history of fevers, chills, nausea, vomiting, sweating, lightheadedness, shortness of breath, chest pain, swelling, redness or urinary incontinence. He also denies any pain in the lower back, stating that he only feels it in his thighs and below. It seems that his weakness has been getting worse since his spinal surgery and his pain has also not improved. He currently takes medication for this pain and for diabetes (metformin). Past medical history is significant for Type 2 diabetes and also for some carpal tunnel like symptoms last year. He had 3 surgeries in his right hand. Past Medical/Surgical History Medical Problems: (1) Lumbar radiculopathy Status: Acute (2) Sacroiliac joint dysfunction of left side Status: Acute (3) Sciatica of left side Status: Acute (4) Diabetes Mellitus Type 2 Status: Chronic Family History Mother is still alive and has no current medical conditions. Father from Lung Cancer secondary to smoking in his late 70s Both his children are alive and healthy He has one sister who is also healthy. 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 He is still on workman's compensation. He has never smoked, occasionally drinks alcohol ( about 1-2 beers per week) and denies any recreational drug use Smoking Status: Never Smoker Smokeless Tobacco Use: No Alcohol Use: socially (beer, maybe 1-2 times per week) Drug Use: none Marital Status: Housing status: lives with significant other Occupational Status: disabled Immunizations History of Pneumococcal: Yes Allergies Coded Allergies: Codeine (Verified Adverse Reaction, Mild, VOMITTING, 08/27/16) Gabapentin (Verified Adverse Reaction, Unknown, SPEECH AND MEMORY PROBLEMS , 08/27/16) Pregabalin (Verified Adverse Reaction, Unknown, FELT DROWSY AND FORGOT THINGS, 08/27/16) Medications Bumetanide (Bumex), 1 MG PO QAM Hydromorphone Hcl (Dilaudid), 1 TAB PO QID PRN for Pain Ibuprofen (Motrin), 600 MG PO Q6H PRN for Pain Metformin Hcl (Glucophage), 1,000 MG PO BID Multiple Vitamins W/ Minerals (Mens 50+ Multi Vitamin &), 1 TAB PO QAM Review of Systems Constitutional: + weakness, No fever, No chills, No sweats, No weight loss Eyes: No worsening of vision ENT: No hearing loss Respiratory: No shortness of breath Cardiovascular: No chest pain Musculoskeletal: + muscle pain, No swelling Genitourinary - Male: No dysuria, No urinary hesitancy, No urinary retention, No urinary incontinence Neurologic: + paralysis, + weakness (both lower extremities, worse on the left ), + numbness/tingling (below the knees), No memory loss Integumentary: No rash, No new/changing skin lesions Physical Exam Vital Signs (24 Hours) Date Time Temp Pulse Resp B/P (MAP) Pulse Ox O2 Delivery O2 Flow Rate FiO2 10/15/16 07:59 99 Room Air 10/15/16 07:54 36.3 94 13 122/86 (98) 99 Room Air 10/15/16 07:25 Room Air 10/14/16 23:30 Room Air 10/14/16 22:55 36.6 106 16 137/49 (78) 97 Room Air 10/14/16 15:45 Room Air 10/14/16 14:51 37.3 99 16 161/92 (115) 98 Room Air 10/14/16 12:06 36.7 111 16 153/84 97 Room Air 10/14/16 12:01 36.7 111 16 153/84 (107) 97 Room Air General Appearance: WD/WN, no apparent distress Head: normocephalic, atraumatic Eyes: PERRL Respiratory/Chest: lungs clear Cardiovascular: regular rate, rhythm, no gallop, no murmur 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 He was able to accurately answer questions about time and location but he did seem a little confused and very tired. It may have been from the pain medications he had just received 30 min prior to the exam. Cranial Nerves: CN I: not tested CN II: PERRL, funduscopic exam normal CN III, IV, : Extraocular movements intact CN VII: facial sensation in frontal, maxillary, and mandibular areas intact. CN VIII: hearing intact bilaterally. Patient does wear hearing aids and has for some time. CN IX, X: palate lifts symmetrically when saying "ah" CN XI: able to shrug shoulders against resistance CN XII: tongue protrudes midline. Can push against resistance Motor: 5/5 R Upper extremities, including deltoid, triceps, biceps, extensor digitorum and flexor digitorum superficialis 5/5 L Upper extremities, including deltoid, triceps, biceps, extensor digitorum and flexor digitorum superficialis 2/5 R Proximal leg muscles, especially hip flexors 1/5 L Proximal leg muscles, especially hip flexors 2/5 R distal lower leg muscles, especially quadriceps, hamstrings 2/5 L distal lower leg muscles, especially quadriceps, hamstrings 4/5 dorsiflexion and plantarflexion bilaterally. Significant muscular atrophy noted in the quadriceps area. Sensory Sensation in upper extremities was normal bilaterally. Sensation in both legs below the knees was abnormal. He complained of numbness and tingling and stated that while touch felt the same on both sides, it felt abnormal. Vibration was intact in both upper and lower extremities. Reflex: Brachioradialis: 2+ bilaterally Biceps: 2+ bilaterally Triceps: 2+ bilaterally Patellar: 0 bilaterally Achilles: 0 bilaterally Babinski sign absent on both feet Patient is right handed Diagnostics Laboratory Results Results Past 24 Hours Test 10/14/16 12:14 10/14/16 22:56 10/15/16 07:25 Range/Units White Blood Count 7.76 6.11 4.8-10.8 K/uL Red Blood Count 4.53 4.59 4.7-6.1 M/uL Hemoglobin 14.1 14.2 14.0-18.0 g/dL Hematocrit 39.7 40.7 42-52 % Mean Corpuscular Volume 87.6 88.7 80-100 fL Mean Corpuscular Hemoglobin 31.1 30.9 25-34 pg Mean Corpuscular Hemoglobin Concent 35.5 34.9 32-36 g/dl Platelet Count 409 364 130-400 K/uL Mean Platelet Volume 9.2 9.2 7.4-10.4 fL Neutrophils (%) (Auto) 63.2 % Lymphocytes (%) (Auto) 24.0 % Monocytes (%) (Auto) 11.2 % Eosinophils (%) (Auto) 0.9 % Basophils (%) (Auto) 0.4 % Neutrophils # (Auto) 4.91 1.4-6.5 K/uL Lymphocytes # (Auto) 1.86 1.2-3.4 K/uL Monocytes # (Auto) 0.87 0.11-0.59 K/uL Eosinophils # (Auto) 0.07 0-0.5 K/uL Basophils # (Auto) 0.03 0-0.2 K/uL RDW Standard Deviation 40.6 41.2 36.4-46.3 fL RDW Coefficient of Variation 12.7 12.7 11.5-14.5 % Immature Granulocyte % (Auto) 0.3 % Immature Granulocyte # (Auto) 0.02 0.00-0.02 K/uL Prothrombin Time 9.5 9.0-12.0 SECONDS Prothromb Time International Ratio 0.9 0.9-1.1 Sodium Level 139 138 136-145 mmol/L Potassium Level 5.0 4.1 3.5-5.1 mmol/L Chloride Level 104 103 98-107 mmol/L Carbon Dioxide Level 27 29 21-32 mmol/L Anion Gap 8.0 6.0 3-11 mmol/L Blood Urea Nitrogen 14 10 7-18 mg/dl Creatinine 0.60 0.56 0.60-1.40 mg/dl Est Creatinine Clear Calc Drug Dose 114.2 122.4 ml/min Estimated GFR () 126.7 130.3 Estimated GFR (Non- 109.3 112.4 BUN/Creatinine Ratio 22.5 17.1 10-20 Random Glucose 177 121 70-99 mg/dl Estimated Average Glucose 134 mg/dl Hemoglobin A1c 6.3 4.5-5.6 % Calcium Level 9.5 9.8 8.5-10.1 mg/dl Bedside Glucose 130 70-99 mg/dl Diagnostic Radiology MRI of the lumbar sine showed some degenerative disc changes and a fluid collection around T12 that may be a possible seroma, hematoma, or abscess. The laminectomy is seen from L3-L5. CXR normal Impression Assessment and Plan Assessment: Progressive lower leg paralysis and pain 61 year old male with a recent history of L3-L5 laminectomy presents with a progressive and profound bilateral lower extremity weakness, atrophy, pain as well as paresthesias below the knee and abnormal sensation. He has absent reflexes below the knee. His proximal muscles are weaker than his distal muscles and have significant atrophy. His upper extremities have normal strength. With significant atrophy, weakness, and lack of reflexes, neurologic etiologies should be considered. MRI of the lumbar spine indicated there may be a seroma, hematoma or abscess. While this should be considered, it is unlikely that this is the cause of his bilaterally extremity weakness as it would be more likely to cause unilateral symptoms. It is possible that there is inflammation or compression higher up in the spinal cord that is causing these symptoms. Not likely to be in the cervical region as evidenced by the strength in his arms but possibly in the thoracic region. Other possibilities include a fluid collection or hematoma in the pelvic area or perhaps a stroke in the brain Other etiologies to consider: MGUS or other gamma globinopathy or rheumatologic causes of inflammatory neuropathy. Plan: 1. Thoracic Spine MRI with contrast to rule out lesion or inflammation in the Thoracic spine 2. Screening labs for gamma globins, immunifixation, RAMIRO. 2. If nothing remarkable on the Thoracic spine MRI, consider Pelvic MRI (rule out fluid collection that is causing compression or inflammation) or Brain MRI ( rule out stroke). 3. If all imaging is negative, consider discharging to rehab an f/u with EMG. Neurology attending addendum: Patient was seen and evaluated with medical student. Please see my separate neurology consult note for full evaluation and recommendations. -Rosalia Gar, DO Advanced Directives Existing Living Will: No Existing Power of Die Reamer: No
[2016-10-15 10:14] LABS: C-REACTIVE PROTEIN < 0.29 mg/dl (0-0.29)
[2016-10-15] MEDS: LACTATED RINGER'S 1000ML 1,000 ML IV SCH (12:01)
[2016-10-15 12:54] VITALS: TEMP 36.6
--- NOTE | 2016-10-15 13:43 | Hospitalist Progress Note ---
Hospitalist Progress Note Date of Service Oct 15, 2016. Subjective Pt evaluation today including: conversation w/ patient, conversation w/ family , physical exam, chart review, lab review, review of studies, review of inpatient medication list Patient seen and evaluated. Verbalized no complaints. Reports ambulating with PT services but reporting leg weakness. Explained his A1c to him and reports having much better control compared to reading in June. However patient reports nothing has really changed. Does thing he was getting steroids with the surgery and injections which may explain this higher reading then. Only utilizes Metformin at home. He is not sure if he has any known neuropathy given the history of his back issues. Constitutional: No fever, No chills Respiratory: No cough, No shortness of breath Cardiovascular: No chest pain Abdomen: No pain, No nausea, No vomiting Male : No dysuria Neurologic: + weakness (bilateral lower extremity weakness) Medications Current Inpatient Medications Medications (Trade) Dose Ordered Sig/Brayan Route Start Time Stop Time Status Last Admin Dose Admin Lactated Ringer's 1,000 ml @ 15 mls/hr Q24H IV 10/14/16 11:15 11/13/16 11:14 10/15/16 12:01 15 MLS/HR Acetaminophen (Tylenol Tab) 650 mg Q6H PRN PO 10/14/16 11:15 11/13/16 11:14 Docusate Sodium (coLACE CAP) 100 mg DAILY PO 10/15/16 09:00 11/14/16 08:59 10/15/16 09:06 100 MG Ondansetron HCl (Zofran Inj) 4 mg Q6H PRN IV 10/14/16 11:15 11/13/16 11:14 Tramadol HCl (Ultram Tab) 50 mg Q8H PRN PO 10/14/16 11:15 11/13/16 11:14 Oxycodone/ Acetaminophen (Percocet 10-325MG Tab) 2 tab Q4H PRN PO 10/14/16 17:30 10/28/16 17:29 10/15/16 13:23 2 TAB Hydromorphone HCl (Dilaudid Inj) 1 mg Q3HWA PRN IV 10/14/16 17:30 10/28/16 17:29 Glucose (Glucose 40% Gel) 15-30 GRAMS 15 GRAMS... UD PRN PO 10/14/16 20:30 11/13/16 20:29 Glucose (Glucose Chew Tab) 4-8 Tablets 4 Tabl... UD PRN PO 10/14/16 20:30 11/13/16 20:29 Dextrose (Dextrose 50% 50ML Syringe) 25-50ML OF 50% DW IV FOR... UD PRN IV 10/14/16 20:30 11/13/16 20:29 Glucagon (Glucagon Inj) 1 mg UD PRN SQ 10/14/16 20:30 11/13/16 20:29 Insulin Aspart (novoLOG ASPART) SLIDING SCALE G... ACHS SC 10/14/16 21:00 11/13/16 20:59 Hydralazine HCl (HydrALAZINE INJ) 10 mg Q6H PRN IV. 10/14/16 20:30 11/13/16 20:29 Gadobutrol (Gadavist) 6 mmol UD PRN IV 10/14/16 23:00 10/18/16 22:59 Objective Vital Signs Date Time Temp Pulse Resp B/P (MAP) Pulse Ox O2 Delivery O2 Flow Rate FiO2 10/15/16 12:54 36.6 10/15/16 07:59 99 Room Air 10/15/16 07:54 36.3 94 13 122/86 (98) 99 Room Air 10/15/16 07:25 Room Air 10/14/16 23:30 Room Air 10/14/16 22:55 36.6 106 16 137/49 (78) 97 Room Air 10/14/16 15:45 Room Air 10/14/16 14:51 37.3 99 16 161/92 (115) 98 Room Air Physical Exam General Appearance: no apparent distress Eyes: sclerae normal ENT: hearing grossly normal Neck: supple, no JVD, trachea midline Respiratory/Chest: lungs clear, normal breath sounds, no respiratory distress, no accessory muscle use Cardiovascular: regular rate, rhythm, no gallop, no murmur Abdomen: normal bowel sounds, non tender, soft Extremities: no calf tenderness, + pertinent finding (legs thin - limited muscle - L worse than R) Neurologic/Psychiatric: alert, oriented x 3 Skin: normal color, warm/dry Laboratory Results Last 24 Hours Test 10/14/16 22:56 10/15/16 07:25 10/15/16 08:09 10/15/16 09:31 Bedside Glucose 130 mg/dl 121 mg/dl White Blood Count 6.11 K/uL Red Blood Count 4.59 M/uL Hemoglobin 14.2 g/dL Hematocrit 40.7 % Mean Corpuscular Volume 88.7 fL Mean Corpuscular Hemoglobin 30.9 pg Mean Corpuscular Hemoglobin Concent 34.9 g/dl RDW Standard Deviation 41.2 fL RDW Coefficient of Variation 12.7 % Platelet Count 364 K/uL Mean Platelet Volume 9.2 fL Erythrocyte Sedimentation Rate 7 mm/hr Sodium Level 138 mmol/L Potassium Level 4.1 mmol/L Chloride Level 103 mmol/L Carbon Dioxide Level 29 mmol/L Anion Gap 6.0 mmol/L Blood Urea Nitrogen 10 mg/dl Creatinine 0.56 mg/dl Est Creatinine Clear Calc Drug Dose 122.4 ml/min Estimated GFR () 130.3 Estimated GFR (Non- 112.4 BUN/Creatinine Ratio 17.1 Random Glucose 121 mg/dl Calcium Level 9.8 mg/dl Total Creatine Kinase 59 U/L C-Reactive Protein < 0.29 mg/dl Vitamin B12 Level 549 pg/mL Test 10/15/16 12:03 Bedside Glucose 147 mg/dl Assessment and Plan 61 y/o male with a history of DM II, lumbar stenosis w/radiculopathy s/p lumbar decompression and fusion 06/25/16 who presents with lower extremity weakness and paresthesias. Presents direct admission by Dr. Freeman, hospitalist consulted for medical management. Lower Extremity Weakness/Paresthesias - Pain management, DVT prophylaxis, and PT/OT as per primary team - Neurology following - consideration for possible steroids Diabetes Mellitus Type 2: A1c improved to 6.3 from 11 - Continue to hold Metformin in case of any invasive procedure or need to be NPO - SSI - goal 140-180 with carb ratio of 30 -- Has adequate glucose readings and has not required coverage - Per neurology note - possible consideration for steroids - if necessary can tighten coverage -- Patient was a limited historian about his history with his previous A1c but states he hasn't done anything differently and isn't sure how long he has been on metformin -- Likely given the A1c was around his surgery he was likely receiving steroids - Given the level of his A1c previously could possibly have underlying diabetic neuropathy contributing to his problem Elevated BP: - No diagnosis of HTN - improving but will continue to cover with Hydralazine PRN - Does take Bumex but reports this is actually just a PRN medication for lower extremity edema -- He denies cardiac issues or a specific diagnosis for the edema Thank you for this consultation. We will continue to follow. Continued [facility] stay due to: ambulation difficulties Discharge planning: uncertain
[2016-10-15 16:00] VITALS: BP 118/75; PULSE 90; TEMP 36.5; O2SAT 98
[2016-10-15] MEDS ORDERED: DIAZEPAM 5MG TAB PO STA (21:10)
[2016-10-15] MEDS ORDERED: NURSING VERBAL MED ORDER ONE (21:15)
--- NOTE | 2016-10-15 22:42 | DIAGNOSTIC IMAGING REPORT ---
MRI THE THORACIC SPINE WITHOUT A WITH GADOLINIUM CLINICAL HISTORY: Regressive bilateral leg weakness. COMPARISON STUDY: No previous studies for comparison. FINDINGS: Imaging was performed in the sagittal and axial planes before and after the administration of 6 cc of intravenous Gadavist. There are no suspicious areas of marrow replacement. There are multilevel degenerative changes. No cord lesions are visualized. There is no spinal stenosis. There are no pathologically enhancing intra or extradural masses. IMPRESSION: 1. Multilevel degenerative change 2. No evidence of neoplasm 3. No cord lesions identified 4. No evidence of spinal stenosis Electronically signed by: Eduardo Basilio M.D. 10/15/2016 10:41 PM Dictated Date/Time: 10/15/2016 10:39 PM
[2016-10-15 22:53] VITALS: BP 123/81; PULSE 94; TEMP 36.6; O2SAT 98
[2016-10-16] MEDS: OXYCODONE/ACETAMINOPHEN 10/325MG TAB PO PRN ×4 (04:54→21:10)
[2016-10-16 06:47] LABS: HEMATOCRIT 37.9 % (42-52); MEAN CORPUSCULAR HEMOGLOBIN 31.2 pg (25-34); MEAN CORPUSCULAR HGB CONC 35.1 g/dl (32-36); MEAN PLATELET VOLUME 9.3 fL (7.4-10.4); PLATELET COUNT 328 K/uL (130-400); RED BLOOD COUNT 4.26 M/uL (4.7-6.1); WHITE BLOOD COUNT 8.21 K/uL (4.8-10.8)
[2016-10-16 07:22] LABS: BUN/CREATININE RATIO 21.9 (10-20); CALCIUM 9.2 mg/dl (8.5-10.1); CREATININE 0.69 mg/dl (0.60-1.40); POTASSIUM 4.2 mmol/L (3.5-5.1)
[2016-10-16 07:42] VITALS: BP 118/78; PULSE 86; TEMP 36.4; O2SAT 98
[2016-10-16 07:43] VITALS: O2SAT 98
[2016-10-16 07:45] VITALS: O2SAT 98
[2016-10-16] MEDS: INSULIN ASPART 100 UNITS/ML 3 ML PEN SC SCH ×4 (08:00→21:05)
[2016-10-16] MEDS ORDERED: LORAZEPAM 1 MG TAB PO PRN (09:00)
[2016-10-16] MEDS: DOCUSATE SODIUM 100 MG CAP PO SCH (09:04)
--- NOTE | 2016-10-16 09:55 | Neurology Progress Notes ---
Neurology Progress Note Date of Service Oct 16, 2016. Subjective no new neurological symptoms. Reports pain seems to be better manage this morning. MRI of the T-spine reporting images were reviewed by myself and unremarkable. No signs of demyelinization or structural impingement. CK is within normal limits. Objective Date Time Temp Pulse Resp B/P (MAP) Pulse Ox O2 Delivery O2 Flow Rate FiO2 10/16/16 07:43 98 Room Air 10/16/16 07:42 36.4 86 16 118/78 (91) 98 Room Air 10/16/16 00:15 Room Air 10/15/16 22:53 36.6 94 16 123/81 (95) 98 Room Air 10/15/16 20:00 Room Air 10/15/16 16:00 Room Air 10/15/16 16:00 36.5 90 16 118/75 (89) 98 Room Air 10/15/16 12:54 36.6 Last 24 Hours Test 10/15/16 09:31 10/15/16 12:03 10/15/16 17:00 10/15/16 20:41 Total Creatine Kinase 59 U/L C-Reactive Protein < 0.29 mg/dl Vitamin B12 Level 549 pg/mL Bedside Glucose 147 mg/dl 110 mg/dl 161 mg/dl Test 10/16/16 06:12 White Blood Count 8.21 K/uL Red Blood Count 4.26 M/uL Hemoglobin 13.3 g/dL Hematocrit 37.9 % Mean Corpuscular Volume 89.0 fL Mean Corpuscular Hemoglobin 31.2 pg Mean Corpuscular Hemoglobin Concent 35.1 g/dl RDW Standard Deviation 41.2 fL RDW Coefficient of Variation 12.7 % Platelet Count 328 K/uL Mean Platelet Volume 9.3 fL Sodium Level 138 mmol/L Potassium Level 4.2 mmol/L Chloride Level 103 mmol/L Carbon Dioxide Level 30 mmol/L Anion Gap 5.0 mmol/L Blood Urea Nitrogen 15 mg/dl Creatinine 0.69 mg/dl Est Creatinine Clear Calc Drug Dose 99.3 ml/min Estimated GFR () 119.6 Estimated GFR (Non- 103.2 BUN/Creatinine Ratio 21.9 Random Glucose 143 mg/dl Calcium Level 9.2 mg/dl Exam: Gen.: Patient is alert and sitting in bed, in no acute distress. HEENT: Normocephalic /atraumatic, no scleral icterus Extremities: No gross deformities or rashes noted Neurological examination: Mental status: Patient is fairly lethargic and falls asleep easily. Patient is alert and oriented x3. Attention normal for the situation. Patient was able to give his own history Speech is fluent without any dysarthria or aphasia noted Cranial nerve: Extraocular muscles intact without nystagmus. No facial asymmetry noted. Hearing grossly intact to voice (has heading devices). Strength: Full in bilateral upper extremities. Right hip flexion 2+/5, left hip flexion 2/5, dorsiflexion 3/5 right and 2/3 left, plantarflexion 4/5. Noted significant atrophy mostly in the proximal thigh muscles. Patient was able to sit up without any assistance. Station within the bed was normal Current Inpatient Medications Medications (Trade) Dose Ordered Sig/Brayan Route Start Time Stop Time Status Last Admin Dose Admin Lactated Ringer's 1,000 ml @ 15 mls/hr Q24H IV 10/14/16 11:15 11/13/16 11:14 10/15/16 12:01 15 MLS/HR Acetaminophen (Tylenol Tab) 650 mg Q6H PRN PO 10/14/16 11:15 11/13/16 11:14 Docusate Sodium (coLACE CAP) 100 mg DAILY PO 10/15/16 09:00 11/14/16 08:59 10/16/16 09:04 100 MG Ondansetron HCl (Zofran Inj) 4 mg Q6H PRN IV 10/14/16 11:15 11/13/16 11:14 Tramadol HCl (Ultram Tab) 50 mg Q8H PRN PO 10/14/16 11:15 11/13/16 11:14 Oxycodone/ Acetaminophen (Percocet 10-325MG Tab) 2 tab Q4H PRN PO 10/14/16 17:30 10/28/16 17:29 10/16/16 04:54 2 TAB Hydromorphone HCl (Dilaudid Inj) 1 mg Q3HWA PRN IV 10/14/16 17:30 10/28/16 17:29 Glucose (Glucose 40% Gel) 15-30 GRAMS 15 GRAMS... UD PRN PO 10/14/16 20:30 11/13/16 20:29 Glucose (Glucose Chew Tab) 4-8 Tablets 4 Tabl... UD PRN PO 10/14/16 20:30 11/13/16 20:29 Dextrose (Dextrose 50% 50ML Syringe) 25-50ML OF 50% DW IV FOR... UD PRN IV 10/14/16 20:30 11/13/16 20:29 Glucagon (Glucagon Inj) 1 mg UD PRN SQ 10/14/16 20:30 11/13/16 20:29 Insulin Aspart (novoLOG ASPART) SLIDING SCALE G... ACHS SC 10/14/16 21:00 11/13/16 20:59 Hydralazine HCl (HydrALAZINE INJ) 10 mg Q6H PRN IV. 10/14/16 20:30 11/13/16 20:29 Gadobutrol (Gadavist) 6 mmol UD PRN IV 10/14/16 23:00 10/18/16 22:59 Lorazepam (Ativan Tab) 1 mg Q10M PRN PO 10/16/16 09:00 Impression This is a 61-year-old male with complaints of bilateral lower extremity pain status post lumbar laminectomy and fusion in June of L3 through L5, with significant progressive weakness of bilateral lower extremity since that time. Pattern of weakness appears to be more proximal compared to distal. Also noted significant muscle atrophy more proximally in lower extremities. Patient did have painful sensation in the legs that could've indicated that process was occurring before his lumbar surgery. Differential diagnosis at this time includes midline stroke, bilateral pelvic hematoma affecting lumbar plexus, versus a inflammatory myopathy (Lambert Eaton, IBM, or polymyositis) Plan MRI of the brain and pelvis to r/o stroke and pelvic hematoma. ESR, CRP, CK, B12 within normal limits. SPEP with immunofixation and Vit E level pending Checking L[place], RAMIRO, aldolase, myoglobin, LFTs, LDH, anti-Chayito antibody, voltage gated calcium channel antibody, and acetylcholine receptor antibodies for secondary causes of weakness or inflammatory myopathy Recommend starting prednisone 60mg daily for possible inflammatory myopathy and monitor closely for diabetic complications. Since I do not think that the patient's leg weakness is from a primary spinal lesion or etiology, I feel it safe to discontinue bedrest Follow-up PT/OT evaluation and recommendations for discharge planning. Patient will likely need inpatient rehabilitation. I will set him up for an EMG as an outpatient If there is any questions or concerns, feel free to call/page me.
[2016-10-16] MEDS ORDERED: NURSING VERBAL MED ORDER ONE (10:00)
[2016-10-16] MEDS ORDERED: DIAZEPAM 5MG TAB PO SCH (10:00)
[2016-10-16] MEDS: LACTATED RINGER'S 1000ML 1,000 ML IV SCH (11:42)
--- NOTE | 2016-10-16 13:46 | Hospitalist Progress Note ---
Hospitalist Progress Note Date of Service Oct 16, 2016. Subjective Pt evaluation today including: conversation w/ patient, conversation w/ family , physical exam, chart review, lab review, review of studies, review of inpatient medication list Patient seen and evaluated. Reporting he continues to have bilateral lower extremity weakness. Was having increased pain radiating from his back down the front of his thigh and stopping at the knee. Received Dr. Gar's message about her recommendation to start Prednisone in regards to his DM. So far he has not required any insulin coverage. Will continue to monitor glucose readings and tight coverage and possibly add basal coverage if necessary Constitutional: No fever, No chills Respiratory: No shortness of breath Cardiovascular: No chest pain Abdomen: No pain, No nausea, No vomiting, No diarrhea, No constipation Musculoskeletal: + joint pain, + muscle pain, No calf pain Male : No dysuria Neurologic: + weakness (bilateral lower extremities) Heme: No abnormal bleeding/bruising Skin: + problem reported (no know bug/tick bites), No rash Medications Current Inpatient Medications Medications (Trade) Dose Ordered Sig/Brayan Route Start Time Stop Time Status Last Admin Dose Admin Lactated Ringer's 1,000 ml @ 15 mls/hr Q24H IV 10/14/16 11:15 11/13/16 11:14 10/16/16 11:42 15 MLS/HR Acetaminophen (Tylenol Tab) 650 mg Q6H PRN PO 10/14/16 11:15 11/13/16 11:14 Docusate Sodium (coLACE CAP) 100 mg DAILY PO 10/15/16 09:00 11/14/16 08:59 10/16/16 09:04 100 MG Ondansetron HCl (Zofran Inj) 4 mg Q6H PRN IV 10/14/16 11:15 11/13/16 11:14 Tramadol HCl (Ultram Tab) 50 mg Q8H PRN PO 10/14/16 11:15 11/13/16 11:14 Oxycodone/ Acetaminophen (Percocet 10-325MG Tab) 2 tab Q4H PRN PO 10/14/16 17:30 10/28/16 17:29 10/16/16 11:41 2 TAB Hydromorphone HCl (Dilaudid Inj) 1 mg Q3HWA PRN IV 10/14/16 17:30 10/28/16 17:29 Glucose (Glucose 40% Gel) 15-30 GRAMS 15 GRAMS... UD PRN PO 10/14/16 20:30 11/13/16 20:29 Glucose (Glucose Chew Tab) 4-8 Tablets 4 Tabl... UD PRN PO 10/14/16 20:30 11/13/16 20:29 Dextrose (Dextrose 50% 50ML Syringe) 25-50ML OF 50% DW IV FOR... UD PRN IV 10/14/16 20:30 11/13/16 20:29 Glucagon (Glucagon Inj) 1 mg UD PRN SQ 10/14/16 20:30 11/13/16 20:29 Insulin Aspart (novoLOG ASPART) SLIDING SCALE G... ACHS SC 10/14/16 21:00 11/13/16 20:59 Hydralazine HCl (HydrALAZINE INJ) 10 mg Q6H PRN IV. 10/14/16 20:30 11/13/16 20:29 Gadobutrol (Gadavist) 6 mmol UD PRN IV 10/14/16 23:00 10/18/16 22:59 Lorazepam (Ativan Tab) 1 mg Q10M PRN PO 10/16/16 09:00 Diazepam (Valium Tab) 5 mg TODAY@1000 PO 10/16/16 10:00 10/16/16 15:00 Objective Vital Signs Date Time Temp Pulse Resp B/P (MAP) Pulse Ox O2 Delivery O2 Flow Rate FiO2 10/16/16 07:45 98 Room Air 10/16/16 07:43 98 Room Air 10/16/16 07:42 36.4 86 16 118/78 (91) 98 Room Air 10/16/16 00:15 Room Air 10/15/16 22:53 36.6 94 16 123/81 (95) 98 Room Air 10/15/16 20:00 Room Air 10/15/16 16:00 Room Air 10/15/16 16:00 36.5 90 16 118/75 (89) 98 Room Air Physical Exam General Appearance: no apparent distress, + thin Eyes: PERRL, sclerae normal ENT: hearing grossly normal Neck: supple, no JVD, trachea midline Respiratory/Chest: lungs clear, normal breath sounds, no respiratory distress, no accessory muscle use Cardiovascular: regular rate, rhythm, no gallop, no murmur Abdomen: normal bowel sounds, non tender, soft Extremities: no pedal edema, no calf tenderness, + pertinent finding (mild tenderness with palpation of L thigh; + muscle wasting bilateral legs) Neurologic/Psychiatric: alert, oriented x 3 Skin: normal color, warm/dry Laboratory Results Last 24 Hours Test 10/15/16 17:00 10/15/16 20:41 10/16/16 06:12 10/16/16 08:08 Bedside Glucose 110 mg/dl 161 mg/dl 125 mg/dl White Blood Count 8.21 K/uL Red Blood Count 4.26 M/uL Hemoglobin 13.3 g/dL Hematocrit 37.9 % Mean Corpuscular Volume 89.0 fL Mean Corpuscular Hemoglobin 31.2 pg Mean Corpuscular Hemoglobin Concent 35.1 g/dl RDW Standard Deviation 41.2 fL RDW Coefficient of Variation 12.7 % Platelet Count 328 K/uL Mean Platelet Volume 9.3 fL Sodium Level 138 mmol/L Potassium Level 4.2 mmol/L Chloride Level 103 mmol/L Carbon Dioxide Level 30 mmol/L Anion Gap 5.0 mmol/L Blood Urea Nitrogen 15 mg/dl Creatinine 0.69 mg/dl Est Creatinine Clear Calc Drug Dose 99.3 ml/min Estimated GFR () 119.6 Estimated GFR (Non- 103.2 BUN/Creatinine Ratio 21.9 Random Glucose 143 mg/dl Calcium Level 9.2 mg/dl Test 10/16/16 12:33 Assessment and Plan 61 y/o male with a history of DM II, lumbar stenosis w/radiculopathy s/p lumbar decompression and fusion 06/25/16 who presents with lower extremity weakness and paresthesias. Presents direct admission by Dr. Freeman, hospitalist consulted for medical management. Lower Extremity Weakness/Paresthesias - Pain management, DVT prophylaxis, and PT/OT as per primary team - Dr. Freeman - Neurology following - multiple labs and studies ordered - plan to implement steroids Diabetes Mellitus Type 2: A1c improved to 6.3 from 11 - Continue to hold Metformin at this time - SSI - goal 140-180 with carb ratio of 30 -- Has continued to have adequate glucose readings and has not required coverage - Per neurology note - recommendations given to implement steroids - Plan to place tighter diabetic control pending further monitoring of glucose readings - can place basal weight based dosing if necessary Elevated BP: - No diagnosis of HTN - improved but will continue to cover with Hydralazine PRN - Does take Bumex but reports this is actually just a PRN medication for lower extremity edema -- He denies cardiac issues or a specific diagnosis for the edema Thank you for this consultation. We will continue to follow and for diabetic monitoring and control Continued [facility] stay due to: multiple IV medications needed Discharge planning: uncertain
[2016-10-16 14:29] LABS: LYME DISEASE AB IGG NEG (NEG)
[2016-10-16 14:32] LABS: LYME DISEASE AB IGM NEG (NEG)
[2016-10-16 15:20] VITALS: BP 137/85; PULSE 88; TEMP 36.3; O2SAT 99
[2016-10-16] MEDS: POLYETHYLENE (MIRALAX) 17 GM PACK PO PRN (16:29)
[2016-10-16] MEDS ORDERED: DIAZEPAM 5MG TAB ONE (22:41)
[2016-10-16 22:57] VITALS: BP 131/81; PULSE 108; TEMP 36.4; O2SAT 97
[2016-10-17] MEDS ORDERED: GADAVIST IV PRN (01:15)
--- NOTE | 2016-10-17 06:46 | DIAGNOSTIC IMAGING REPORT ---
MRI OF THE BRAIN WITHOUT AND WITH IV CONTRAST CLINICAL HISTORY: For found weakness. Lateral leg numbness. COMPARISON STUDY: No previous studies for comparison. TECHNIQUE: MRI of the brain was performed from the vertex to the skull base utilizing various T1 and T2 weighted sequences. Following the IV administration of 6 mL of Gadavist contrast, additional enhanced images were obtained. FINDINGS: Sagittal T1, axial diffusion, proton density and T2 weighted axial, coronal FLAIR, and pre and post axial T1-weighted images were acquired. These were supplemented with post gadolinium coronal T1 weighted images. No intra or extra-axial mass lesions are visualized. Axial diffusion-weighted images reveal no evidence of acute or subacute infarction. There is no evidence of ventricular dilatation. Proton density T2-weighted and FLAIR images reveal scattered foci of increased T2 signal within the white matter, likely on a small vessel basis. There are no abnormal flow voids. There is no evidence of pathologic enhancement. There is opacification of the right maxillary sinus and right ethmoid complex. Inflammatory changes are present within the right frontal sinus. There is soft tissue within the right nasal cavity. The findings are statistically on inflammatory basis. There is a partially empty sella. IMPRESSION: 1. No evidence of intracranial mass 2. No evidence of acute or subacute infarction 3. Minor nonspecific foci of increased T2 signal within the white matter, likely on a small vessel basis 4. Presumed inflammatory changes within the right maxillary, ethmoid, and frontal sinuses. 5. Partially empty sella Electronically signed by: Eduardo Basilio M.D. 10/17/2016 6:44 AM Dictated Date/Time: 10/17/2016 6:40 AM
--- NOTE | 2016-10-17 07:13 | DIAGNOSTIC IMAGING REPORT ---
PELVIS WITHOUT CONTRAST (MRI) HISTORY: 61 years-old Male leg weakness, r/o hematoma. Patient complains of muscle loss in the legs with history of spinal stenosis. No recent trauma. COMPARISON: Thoracic and lumbar spine MR 10/14/2016, CT abdomen and pelvis 04/23/2014. TECHNIQUE: Multiplanar multisequence MRI of the pelvis was obtained without IV contrast. FINDINGS: There is a moderate amount of intramuscular edema involving the abductor musculature bilaterally in a symmetric distribution. There is also associated mild musculature atrophy and fatty replacement in these distributions. Additionally, moderate to extensive intramuscular edema involves the gluteus minimus and medius musculature as well as the imaged paraspinal musculature. There is a mild amount of bilateral gluteus terrance edema and atrophy. There is a moderate amount of edema adjacent to the iliac fossa bilaterally adjacent to the iliacus musculature. There is also mild to moderate atrophy of the gluteus musculature within the areas of intramuscular edema. No drainable fluid collection is identified. Moderate left and mild right edema surrounds the greater trochanters suggesting developing periventricular bursitis. There is no evidence of iliopsoas bursitis, focal bone marrow edema or fracture. Mild degenerative changes involve the bilateral femoral acetabular joints. There is a suggested tear of the anterosuperior labrum on the left. There is evidence of prior posterior decompression with interbody lucrecia and screw fixation at the L3-L5 levels. There is a loculated collection adjacent to the posterior epidural space at L3-L4 measuring up to approximately 2.7 cm in craniocaudal dimension, better evaluated on comparison lumbar spine MR. Multilevel discogenic degeneration is seen throughout the lumbar spine. Large field of view leaf sticker images demonstrate no gross abnormality of the abdomen or pelvis. IMPRESSION: 1. Moderate amount of intramuscular edema and atrophy involves the abductor, gluteus minimus and medius as well as the paraspinal musculature. Additional edema tracks along the iliacus musculature bilaterally. Differential considerations would include denervation changes or myositis from unknown etiology. No associated drainable collection or abscess identified. 2. No focal intramuscular edema or fracture. 3. Moderate left and mild right greater trochanteric bursitis. 4. Posterior fusion hardware at the L3-L5 levels with persistent loculated fluid collection adjacent to the posterior epidural space, better evaluated on comparison lumbar spine MR dated 10/14/2016. The above report was generated using voice recognition software. It may contain grammatical, syntax or spelling errors. Electronically signed by: Haris Resendiz M.D. 10/17/2016 7:11 AM Dictated Date/Time: 10/17/2016 6:57 AM
[2016-10-17 07:15] LABS: HEMATOCRIT 37.1 % (42-52); MEAN CELL VOLUME 88.1 fL (80-100); MEAN CORPUSCULAR HEMOGLOBIN 31.1 pg (25-34); MEAN CORPUSCULAR HGB CONC 35.3 g/dl (32-36); MEAN PLATELET VOLUME 9.1 fL (7.4-10.4); PLATELET COUNT 349 K/uL (130-400); RED BLOOD COUNT 4.21 M/uL (4.7-6.1); WHITE BLOOD COUNT 8.85 K/uL (4.8-10.8)
[2016-10-17] MEDS: OXYCODONE/ACETAMINOPHEN 10/325MG TAB PO PRN ×4 (07:24→23:35)
[2016-10-17 07:47] VITALS: BP 128/78; PULSE 84; TEMP 36.7; O2SAT 97
[2016-10-17 07:48] VITALS: O2SAT 97
[2016-10-17 07:50] LABS: BUN/CREATININE RATIO 25.1 (10-20); CALCIUM 9.6 mg/dl (8.5-10.1); CREATININE 0.57 mg/dl (0.60-1.40); POTASSIUM 4.3 mmol/L (3.5-5.1)
[2016-10-17] MEDS: INSULIN ASPART 100 UNITS/ML 3 ML PEN SC SCH ×4 (08:00→21:49)
[2016-10-17] MEDS: DOCUSATE SODIUM 100 MG CAP PO SCH (09:06)
[2016-10-17] MEDS ORDERED: LANTUS PER UNIT CHARGE SC ONE (09:40)
--- NOTE | 2016-10-17 09:48 | Neurology Progress Notes ---
Neurology Progress Note Date of Service Oct 17, 2016. Subjective Had no new neurological complaints. Patient tried walking around a little bit yesterday and feels little bit sore this morning. No new weakness or numbness. No new skin changes. MRI of the brain report and images reviewed by myself and unremarkable. Appears normal for age. MRI of the pelvis was reviewed. No fluid collections or hematomas causing nerve compression. There is some edema noted in some of the muscles likely indicating myositis. Zari lives unremarkable. Many labs are pending and will have to be followed up as an outpatient. Objective Date Time Temp Pulse Resp B/P (MAP) Pulse Ox O2 Delivery O2 Flow Rate FiO2 10/17/16 07:48 97 Room Air 10/17/16 07:47 36.7 84 12 128/78 (95) 97 Room Air 10/17/16 07:15 Room Air 10/17/16 00:45 Room Air 10/16/16 22:57 36.4 108 16 131/81 (98) 97 Room Air 10/16/16 15:20 36.3 88 16 137/85 (102) 99 Room Air 10/16/16 15:10 Room Air Last 24 Hours Test 10/16/16 12:05 10/16/16 12:33 10/16/16 16:56 10/16/16 20:34 Bedside Glucose 150 mg/dl 132 mg/dl 214 mg/dl Total Bilirubin 0.6 mg/dl Direct Bilirubin 0.1 mg/dl Aspartate Amino Transf (AST/SGOT) 8 U/L Alanine Aminotransferase (ALT/SGPT) 26 U/L Alkaline Phosphatase 79 U/L Lactate Dehydrogenase 171 U/L Total Protein 7.1 gm/dl Albumin 3.6 gm/dl Lyme Disease IgG Antibody NEG Lyme Disease IgM Antibody NEG Test 10/17/16 07:04 10/17/16 08:08 White Blood Count 8.85 K/uL Red Blood Count 4.21 M/uL Hemoglobin 13.1 g/dL Hematocrit 37.1 % Mean Corpuscular Volume 88.1 fL Mean Corpuscular Hemoglobin 31.1 pg Mean Corpuscular Hemoglobin Concent 35.3 g/dl RDW Standard Deviation 40.4 fL RDW Coefficient of Variation 12.6 % Platelet Count 349 K/uL Mean Platelet Volume 9.1 fL Sodium Level 138 mmol/L Potassium Level 4.3 mmol/L Chloride Level 102 mmol/L Carbon Dioxide Level 30 mmol/L Anion Gap 6.0 mmol/L Blood Urea Nitrogen 14 mg/dl Creatinine 0.57 mg/dl Est Creatinine Clear Calc Drug Dose 120.3 ml/min Estimated GFR () 129.4 Estimated GFR (Non- 111.6 BUN/Creatinine Ratio 25.1 Random Glucose 172 mg/dl Calcium Level 9.6 mg/dl Bedside Glucose 149 mg/dl Exam: Gen.: Patient is alert and sitting in bed, in no acute distress. HEENT: Normocephalic /atraumatic, no scleral icterus Extremities: No gross deformities or rashes noted Neurological examination: Mental status: Patient is alert and oriented x3. Attention normal for the situation. Patient was able to give his own history Speech is fluent without any dysarthria or aphasia noted Cranial nerve: Extraocular muscles intact without nystagmus. No facial asymmetry noted. Hearing grossly intact to voice (has heading devices). Strength: Full in bilateral upper extremities (maybe trace weakness in left shoulder). Right hip flexion 3/5, left hip flexion 2+/5, dorsiflexion 3/5 right and 2/3 left, plantarflexion 4/5. Knee extension 2/5 and knee flexion 3/5 Noted significant atrophy mostly in the proximal thigh muscles. Patient was able to sit up without any assistance. Station within the bed was normal No significant rashes noted. Current Inpatient Medications Medications (Trade) Dose Ordered Sig/Brayan Route Start Time Stop Time Status Last Admin Dose Admin Lactated Ringer's 1,000 ml @ 15 mls/hr Q24H IV 10/14/16 11:15 11/13/16 11:14 10/16/16 11:42 15 MLS/HR Acetaminophen (Tylenol Tab) 650 mg Q6H PRN PO 10/14/16 11:15 11/13/16 11:14 Docusate Sodium (coLACE CAP) 100 mg DAILY PO 10/15/16 09:00 11/14/16 08:59 10/17/16 09:06 100 MG Ondansetron HCl (Zofran Inj) 4 mg Q6H PRN IV 10/14/16 11:15 11/13/16 11:14 Tramadol HCl (Ultram Tab) 50 mg Q8H PRN PO 10/14/16 11:15 11/13/16 11:14 Oxycodone/ Acetaminophen (Percocet 10-325MG Tab) 2 tab Q4H PRN PO 10/14/16 17:30 10/28/16 17:29 10/17/16 07:24 2 TAB Hydromorphone HCl (Dilaudid Inj) 1 mg Q3HWA PRN IV 10/14/16 17:30 10/28/16 17:29 Glucose (Glucose 40% Gel) 15-30 GRAMS 15 GRAMS... UD PRN PO 10/14/16 20:30 11/13/16 20:29 Glucose (Glucose Chew Tab) 4-8 Tablets 4 Tabl... UD PRN PO 10/14/16 20:30 11/13/16 20:29 Dextrose (Dextrose 50% 50ML Syringe) 25-50ML OF 50% DW IV FOR... UD PRN IV 10/14/16 20:30 11/13/16 20:29 Glucagon (Glucagon Inj) 1 mg UD PRN SQ 10/14/16 20:30 11/13/16 20:29 Insulin Aspart (novoLOG ASPART) SLIDING SCALE G... ACHS SC 10/14/16 21:00 11/13/16 20:59 10/16/16 21:05 2 UNITS Hydralazine HCl (HydrALAZINE INJ) 10 mg Q6H PRN IV. 10/14/16 20:30 11/13/16 20:29 Gadobutrol (Gadavist) 6 mmol UD PRN IV 10/14/16 23:00 10/18/16 22:59 Lorazepam (Ativan Tab) 1 mg Q10M PRN PO 10/16/16 09:00 Prednisone (PredniSONE TAB) 60 mg DAILY PO 10/17/16 09:00 11/16/16 08:59 10/17/16 09:06 60 MG Polyethylene (Miralax Powder Packet) 17 gm DAILY PRN PO 10/16/16 16:15 11/15/16 16:14 10/16/16 16:29 17 GM Gadobutrol (Gadavist) 6 mmol UD PRN IV 10/17/16 01:15 10/21/16 01:14 Impression This is a 61-year-old male with complaints of bilateral lower extremity pain and weakness worse after lumbar laminectomy and fusion in [place] of L3 through L5 , with significant progressive weakness of bilateral lower extremity since that time. No structural lesions have been found in the brain, T-spine, L-spine, or pelvis. Overall signs and symptoms appear to point towards an inflammatory myositis. 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 Plan Essentially no additional neurological testing recommended at this time. ESR, CRP, CK, B12, LFTs, LDH within normal limits. Lyme negative pending SPEP with immunofixation, Vit E level, RAMIRO, aldolase, myoglobin, anti- [place] antibody, voltage gated calcium channel antibody, and acetylcholine receptor antibodies for secondary causes of weakness or inflammatory myopathy Could consider screening for HIV, although the patient does not endorse any risky sexual or drug behavior. Continue prednisone 60mg daily for possible Myositis and monitor closely for diabetic complications. Follow-up PT/OT evaluation and recommendations for discharge planning. Agree with discharge to [facility]. I will set him up for an EMG as an outpatient and neurology out patient f/u. Patient will need to be on prednisone 60 mg daily for 4-6 weeks. After that recommend slow prednisone taper: prednisone 50 mg daily for 1 week Followed by 40 mg daily for 1 week Followed by 35 mg daily for 1 week Followed by 30 mg daily for 1 week Followed by 25 mg daily for 1 week Followed by 20 mg daily for 1 week Followed by 15 mg daily for 2 weeks Followed by 10 mg daily for 2 weeks Followed by 9 mg daily for 1 week Followed by 8 mg daily for 1 week Followed by 7 mg daily for 1 week Followed by 6 mg daily for 1 week Followed by 5 mg daily for 1 week and then hold for reevaluation If there is any questions or concerns, feel free to call/page me.
[2016-10-17] MEDS: INSULIN GLARGINE SOLOSTAR 100 UNITS/ML 3 ML PEN SC SCH (10:48)
[2016-10-17] MEDS: LACTATED RINGER'S 1000ML 1,000 ML IV SCH (10:51)
--- NOTE | 2016-10-17 11:40 | Discharge Instructions ---
Discharge Instructions Date of Service Oct 17, 2016. Admission Reason for Admission: Paralysis Of Lower Extremities Discharge Discharge Diagnosis / Problem: same Discharge Goals Goal(s): Improve function Activity Recommendations Activity Limitations: as noted below Lifting Limitations: no more than 5 pounds Exercise/Sports Limitations: until after follow-up appointment May Resume Sexual Activity: after follow-up appointment Driving or Machine Use: recover in rehab . Current Hospital Diet Patient's current hospital diet: Diabetes Type 2 Diet Discharge Diet Recommended Diet: Regular Diet Pending Studies Studies pending at discharge: no Laboratory Results Hemoglobin A1c Test 10/14/16 12:14 Range/Units Estimated Average Glucose 134 mg/dl Hemoglobin A1c 6.3 H 4.5-5.6 % Medical Emergencies . Who to Call and When: Medical Emergencies: If at any time you feel your situation is an emergency, please call 911 immediately. . Non-Emergent Contact Non-Emergency issues call your: Primary Care Provider Call Non-Emergent contact if: your pain is worsening . "Provider Documentation" section prepared by Neto Freemna. . VTE Core Measure Inpt VTE Proph given/why not?: T.E.D. Stockings, Treatment not indicated
[2016-10-17] MEDS ORDERED: INSDGIPEN SC (12:05)
[2016-10-17] MEDS ORDERED: PRD20 PO (12:05)
--- NOTE | 2016-10-17 12:12 | Discharge Instructions ---
Discharge Instructions Date of Service Oct 17, 2016. Admission Reason for Admission: Paralysis Of Lower Extremities Discharge Discharge Diagnosis / Problem: Myositis Discharge Goals Goal(s): Decrease discomfort, Improve function, Increase independence Activity Recommendations Activity Level: Assistance Required Therapies: Physical Therapy, Occupational Therapy Shower/Bathe: no limitations . Additional Information Patient informed of condition: Yes Advance Directives: Yes DNR: No Level of Care: Acute Rehab Communicable Disease: No Prognosis: Improving Instructions / Follow-Up Instructions / Follow-Up 61 y/o male with a history of DM II, lumbar stenosis w/radiculopathy s/p lumbar decompression and fusion 06/25/16 who presents with lower extremity weakness and paresthesias. Presents direct admission by Dr. Freeman, hospitalist consulted for medical management. Lower Extremity Weakness/Paresthesias: Myositis - He will need prednisone 60 mg daily for 4-6 weeks. Rx provided for 30 days - He will then need to taper the prednisone per neurology recommendations --Prednisone 50 mg daily for 1 week --Followed by 40 mg daily for 1 week --Followed by 35 mg daily for 1 week --Followed by 30 mg daily for 1 week --Followed by 25 mg daily for 1 week --Followed by 20 mg daily for 1 week --Followed by 15 mg daily for 2 weeks --Followed by 10 mg daily for 2 weeks --Followed by 9 mg daily for 1 week --Followed by 8 mg daily for 1 week --Followed by 7 mg daily for 1 week --Followed by 6 mg daily for 1 week --Followed by 5 mg daily for 1 week and then hold for reevaluation Diabetes Mellitus Type 2: A1c improved to 6.3 from (June) - Can reinstitute Metformin as previously prescribed - Will add Lantus 10 units SC daily - will need to further monitor glucose and can consider increased to BID dosing - May need to institute a Novolog sliding scale - consider a glucose goal range of 140-180, correction factor of 30 with a carb ratio of 10 with meals Elevated BP: - No diagnosis of HTN - improved - Does take Bumex but reports this is actually just a PRN medication for lower extremity edema -- He denies cardiac issues or a specific diagnosis for the edema Current Hospital Diet Patient's current hospital diet: Diabetes Type 2 Diet Discharge Diet Recommended Diet: Diabetes Type 2 Diet Pending Studies Studies pending at discharge: yes List of pending studies: Immunological studies Physician Orders On Transfer POL Discussion: Not Applicable Laboratory Results Hemoglobin A1c Test 10/14/16 12:14 Range/Units Estimated Average Glucose 134 mg/dl Hemoglobin A1c 6.3 H 4.5-5.6 % Medical Emergencies . Who to Call and When: Medical Emergencies: If at any time you feel your situation is an emergency, please call 911 immediately. . Non-Emergent Contact Non-Emergency issues call your: Primary Care Provider Call Non-Emergent contact if: you have a fever, your pain is concerning you, you have any medication questions . . "Provider Documentation" section prepared by Ann Baugh. . Core Measure Problem Core Measures: None
[2016-10-17] MEDS ORDERED: HYDR2TAB48 PO (12:36)
[2016-10-17 12:52] VITALS: BP 128/78; PULSE 84; TEMP 36.7; O2SAT 97
--- NOTE | 2016-10-17 14:12 | Hospitalist Progress Note ---
Hospitalist Progress Note Date of Service Oct 17, 2016. Subjective Pt evaluation today including: conversation w/ patient, conversation w/ family , physical exam, chart review, lab review, review of studies, review of inpatient medication list Patient seen and evaluated. No acute events overnight. Glucose trending up and did need some insulin coverage. Met with patient and family and discussed diabetes plan including basal insulin coverage in addition to home Metformin He feels that he is improving and is in good spirits. Will require 4-6 weeks of steroids at 60 mg then a slow taper thereafter. Steroids and insulin have been added to D/C meds. Renewed home narcotics if going to rehab. Constitutional: No fever, No chills Respiratory: No cough, No shortness of breath Cardiovascular: No chest pain Abdomen: No pain, No nausea, No vomiting, No diarrhea, No constipation Musculoskeletal: No calf pain Male : No dysuria Neurologic: + weakness (improving) Heme: No abnormal bleeding/bruising Medications Current Inpatient Medications Medications (Trade) Dose Ordered Sig/Brayan Route Start Time Stop Time Status Last Admin Dose Admin Lactated Ringer's 1,000 ml @ 15 mls/hr Q24H IV 10/14/16 11:15 11/13/16 11:14 10/17/16 10:51 15 MLS/HR Acetaminophen (Tylenol Tab) 650 mg Q6H PRN PO 10/14/16 11:15 11/13/16 11:14 Docusate Sodium (coLACE CAP) 100 mg DAILY PO 10/15/16 09:00 11/14/16 08:59 10/17/16 09:06 100 MG Ondansetron HCl (Zofran Inj) 4 mg Q6H PRN IV 10/14/16 11:15 11/13/16 11:14 Tramadol HCl (Ultram Tab) 50 mg Q8H PRN PO 10/14/16 11:15 11/13/16 11:14 Oxycodone/ Acetaminophen (Percocet 10-325MG Tab) 2 tab Q4H PRN PO 10/14/16 17:30 10/28/16 17:29 10/17/16 13:55 2 TAB Hydromorphone HCl (Dilaudid Inj) 1 mg Q3HWA PRN IV 10/14/16 17:30 10/28/16 17:29 Glucose (Glucose 40% Gel) 15-30 GRAMS 15 GRAMS... UD PRN PO 10/14/16 20:30 11/13/16 20:29 Glucose (Glucose Chew Tab) 4-8 Tablets 4 Tabl... UD PRN PO 10/14/16 20:30 11/13/16 20:29 Dextrose (Dextrose 50% 50ML Syringe) 25-50ML OF 50% DW IV FOR... UD PRN IV 10/14/16 20:30 11/13/16 20:29 Glucagon (Glucagon Inj) 1 mg UD PRN SQ 10/14/16 20:30 11/13/16 20:29 Insulin Aspart (novoLOG ASPART) SLIDING SCALE G... ACHS SC 10/14/16 21:00 11/13/16 20:59 10/17/16 12:43 6 UNITS Hydralazine HCl (HydrALAZINE INJ) 10 mg Q6H PRN IV. 10/14/16 20:30 11/13/16 20:29 Gadobutrol (Gadavist) 6 mmol UD PRN IV 10/14/16 23:00 10/18/16 22:59 Lorazepam (Ativan Tab) 1 mg Q10M PRN PO 10/16/16 09:00 Prednisone (PredniSONE TAB) 60 mg DAILY PO 10/17/16 09:00 11/16/16 08:59 10/17/16 09:06 60 MG Polyethylene (Miralax Powder Packet) 17 gm DAILY PRN PO 10/16/16 16:15 11/15/16 16:14 10/16/16 16:29 17 GM Gadobutrol (Gadavist) 6 mmol UD PRN IV 10/17/16 01:15 10/21/16 01:14 Insulin Glargine (Lantus Solostar Pen) 10 units DAILY SC 10/17/16 10:45 11/16/16 10:44 10/17/16 10:48 10 UNITS Objective Vital Signs Date Time Temp Pulse Resp B/P (MAP) Pulse Ox O2 Delivery O2 Flow Rate FiO2 10/17/16 12:52 36.7 84 12 97 Room Air 10/17/16 07:48 97 Room Air 10/17/16 07:47 36.7 84 12 128/78 (95) 97 Room Air 10/17/16 07:15 Room Air 10/17/16 00:45 Room Air 10/16/16 22:57 36.4 108 16 131/81 (98) 97 Room Air 10/16/16 15:20 36.3 88 16 137/85 (102) 99 Room Air 10/16/16 15:10 Room Air Physical Exam General Appearance: no apparent distress, + thin Eyes: sclerae normal ENT: hearing grossly normal Neck: supple, no JVD, trachea midline Respiratory/Chest: lungs clear, normal breath sounds, no respiratory distress, no accessory muscle use Cardiovascular: regular rate, rhythm, no gallop, no murmur Abdomen: normal bowel sounds, non tender, soft Extremities: no pedal edema, no calf tenderness, + pertinent finding ( bilateral thigh muscle wasting) Neurologic/Psychiatric: alert, oriented x 3 Skin: normal color, warm/dry Laboratory Results Last 24 Hours Test 10/16/16 16:56 10/16/16 20:34 10/17/16 07:04 10/17/16 08:08 Bedside Glucose 132 mg/dl 214 mg/dl 149 mg/dl White Blood Count 8.85 K/uL Red Blood Count 4.21 M/uL Hemoglobin 13.1 g/dL Hematocrit 37.1 % Mean Corpuscular Volume 88.1 fL Mean Corpuscular Hemoglobin 31.1 pg Mean Corpuscular Hemoglobin Concent 35.3 g/dl RDW Standard Deviation 40.4 fL RDW Coefficient of Variation 12.6 % Platelet Count 349 K/uL Mean Platelet Volume 9.1 fL Sodium Level 138 mmol/L Potassium Level 4.3 mmol/L Chloride Level 102 mmol/L Carbon Dioxide Level 30 mmol/L Anion Gap 6.0 mmol/L Blood Urea Nitrogen 14 mg/dl Creatinine 0.57 mg/dl Est Creatinine Clear Calc Drug Dose 120.3 ml/min Estimated GFR () 129.4 Estimated GFR (Non- 111.6 BUN/Creatinine Ratio 25.1 Random Glucose 172 mg/dl Calcium Level 9.6 mg/dl Test 10/17/16 11:53 Bedside Glucose 188 mg/dl Assessment and Plan 61 y/o male with a history of DM II, lumbar stenosis w/radiculopathy s/p lumbar decompression and fusion 06/25/16 who presents with lower extremity weakness and paresthesias. Presents direct admission by Dr. Freeman, hospitalist consulted for medical management. Lower Extremity Weakness/Paresthesias - Pain management, DVT prophylaxis, and PT/OT as per primary team - Dr. Freeman - Neurology following - multiple labs and studies ordered - plan to implement steroids Diabetes Mellitus Type 2: A1c improved to 6.3 from 11 - Continue to hold Metformin at this time - this can be reinstituted on D/C - SSI - goal 140-180 with carb ratio of 30 - added carb coverage of 10 - Lantus 10 units SC daily with consideration for BID dosing - Per neurology note - recommendations given to implement steroids - Prednisone 60 mg daily Elevated BP: - No diagnosis of HTN - improved but will continue to cover with Hydralazine PRN - Does take Bumex but reports this is actually just a PRN medication for lower extremity edema -- He denies cardiac issues or a specific diagnosis for the edema Disposition: - D/C per primary service - did prescribed steroids and lantus which were added to the D/C meds -- Placed D/C instructions in regards to diabetes management and recommendations for necessary adjustments in the setting of long-course/high dose steroids Thank you for this consultation. We will continue to follow and for diabetic monitoring and control Discharge planning: rehab hospital
[2016-10-17 15:00] VITALS: BP 144/87; PULSE 102; TEMP 36.6; O2SAT 97
[2016-10-17 22:47] VITALS: BP 136/79; PULSE 96; TEMP 36.6; O2SAT 98
[2016-10-18 06:44] VITALS: BP 123/77; PULSE 91; TEMP 36.6; O2SAT 98
[2016-10-18] MEDS ORDERED: LANTUS PER UNIT CHARGE SC SCH (09:00)
[2016-10-18] MEDS: DOCUSATE SODIUM 100 MG CAP PO SCH (09:24)
[2016-10-18] MEDS: INSULIN ASPART 100 UNITS/ML 3 ML PEN SC SCH ×4 (09:31→20:46)
[2016-10-18] MEDS: INSULIN GLARGINE SOLOSTAR 100 UNITS/ML 3 ML PEN SC SCH (09:32)
[2016-10-18] MEDS: OXYCODONE/ACETAMINOPHEN 10/325MG TAB PO PRN ×3 (09:34→20:41)
[2016-10-18] MEDS: POLYETHYLENE (MIRALAX) 17 GM PACK PO PRN (09:35)
--- NOTE | 2016-10-18 11:40 | Progress Note ---
Subjective Date of Service: Oct 18, 2016. Subjective Pt evaluation today including: conversation w/ patient, conversation w/ family (mother), physical exam, review of inpatient medication list Pain: no pain today PO Intake: adequate Voiding: no voiding problems developed a mild erythematous, non-raised rash only on left thigh yesterday, better with just moisturizing cream, no other rashes some improvement in strength in his thigh and pelvic muscles eating well reviewed sugars, went to 200 yesterday evening with the Prednisone 60mg, may want to increase Lantus slightly, this AM sugar is 97 Problem List Medical Problems: (1) Left lumbar radiculopathy Status: Acute (2) Lumbar radiculopathy Status: Acute (3) Sacroiliac joint dysfunction of left side Status: Acute (4) Sciatica Status: Acute (5) Sciatica of left side Status: Acute Review of Systems Constitutional: + weakness Neurologic: + weakness (thigh muscles and pelvic muscles) Skin: + rash (left thight, no itching) All Other Systems: Reviewed and Negative Medications Current Inpatient Medications Medications (Trade) Dose Ordered Sig/Brayan Route Start Time Stop Time Status Last Admin Dose Admin Lactated Ringer's 1,000 ml @ 15 mls/hr Q24H IV 10/14/16 11:15 11/13/16 11:14 10/17/16 10:51 15 MLS/HR Acetaminophen (Tylenol Tab) 650 mg Q6H PRN PO 10/14/16 11:15 11/13/16 11:14 Docusate Sodium (coLACE CAP) 100 mg DAILY PO 10/15/16 09:00 11/14/16 08:59 10/18/16 09:24 100 MG Ondansetron HCl (Zofran Inj) 4 mg Q6H PRN IV 10/14/16 11:15 11/13/16 11:14 Tramadol HCl (Ultram Tab) 50 mg Q8H PRN PO 10/14/16 11:15 11/13/16 11:14 Oxycodone/ Acetaminophen (Percocet 10-325MG Tab) 2 tab Q4H PRN PO 10/14/16 17:30 10/28/16 17:29 10/18/16 09:34 2 TAB Hydromorphone HCl (Dilaudid Inj) 1 mg Q3HWA PRN IV 10/14/16 17:30 10/28/16 17:29 Glucose (Glucose 40% Gel) 15-30 GRAMS 15 GRAMS... UD PRN PO 10/14/16 20:30 11/13/16 20:29 Glucose (Glucose Chew Tab) 4-8 Tablets 4 Tabl... UD PRN PO 10/14/16 20:30 11/13/16 20:29 Dextrose (Dextrose 50% 50ML Syringe) 25-50ML OF 50% DW IV FOR... UD PRN IV 10/14/16 20:30 11/13/16 20:29 Glucagon (Glucagon Inj) 1 mg UD PRN SQ 10/14/16 20:30 11/13/16 20:29 Insulin Aspart (novoLOG ASPART) SLIDING SCALE G... ACHS SC 10/14/16 21:00 11/13/16 20:59 10/18/16 09:31 5 UNITS Hydralazine HCl (HydrALAZINE INJ) 10 mg Q6H PRN IV. 10/14/16 20:30 11/13/16 20:29 Gadobutrol (Gadavist) 6 mmol UD PRN IV 10/14/16 23:00 10/18/16 22:59 Lorazepam (Ativan Tab) 1 mg Q10M PRN PO 10/16/16 09:00 Prednisone (PredniSONE TAB) 60 mg DAILY PO 10/17/16 09:00 11/16/16 08:59 10/18/16 09:24 60 MG Polyethylene (Miralax Powder Packet) 17 gm DAILY PRN PO 10/16/16 16:15 11/15/16 16:14 10/18/16 09:35 17 GM Gadobutrol (Gadavist) 6 mmol UD PRN IV 10/17/16 01:15 10/21/16 01:14 Insulin Glargine (Lantus Solostar Pen) 10 units DAILY SC 10/17/16 10:45 11/16/16 10:44 10/18/16 09:32 10 UNITS Objective Vital Signs Date Time Temp Pulse Resp B/P (MAP) Pulse Ox O2 Delivery O2 Flow Rate FiO2 10/18/16 07:25 Room Air 10/18/16 06:44 36.6 91 16 123/77 (92) 98 Room Air 10/17/16 23:15 Room Air 10/17/16 22:47 36.6 96 15 136/79 (98) 98 Room Air 10/17/16 15:30 Room Air 10/17/16 15:00 36.6 102 18 144/87 (106) 97 Room Air 10/17/16 12:52 36.7 84 12 97 Room Air Physical Exam General Appearance: WD/WN, no apparent distress Neck: supple, no adenopathy, no JVD, trachea midline Respiratory/Chest: chest non-tender, lungs clear, normal breath sounds, no respiratory distress, no accessory muscle use Cardiovascular: regular rate, rhythm, no edema, no gallop, no JVD, no murmur Abdomen: normal bowel sounds, non tender, soft, no organomegaly Extremities: non-tender, no pedal edema, no calf tenderness, normal capillary refill, pelvis stable, + pertinent finding (mild muscle wasting of quadriceps) 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, alert, normal mood/affect, oriented x 3, + motor weakness (4 out of 5 strength in quads bilaterally) Skin: normal color, warm/dry, no rash Laboratory Results Last 24 Hours Test 10/17/16 11:53 10/17/16 17:03 10/17/16 21:34 10/18/16 08:02 Bedside Glucose 188 mg/dl 205 mg/dl 203 mg/dl 97 mg/dl Assessment and Plan - Lower extremity weakness and ambulatory dysfunction, due to polymyositis diagnosis based on symptoms of proximal muscle weakness and atrophy of muscles on MRI consistent with myositis treat with Prednisone 60mg daily, will need extended taper follow up with neurology, will check EMG outpatient - DM type II: very well controlled on Metformin with HbA1c of 6.3 prior to admission Novolog coverage Lantus 10 units daily with Prednisone use, will increase to 14 units, tomorrow and follow sugars accepted to rehab, needs insurance auth which was denied, peer to peer requested but will not happen over the weekend Continued [facility] stay due to: multiple IV medications needed Discharge planning: rehab hospital
[2016-10-18] MEDS: LACTATED RINGER'S 1000ML 1,000 ML IV SCH (11:44)
[2016-10-18 15:32] VITALS: BP 129/80; PULSE 90; TEMP 36.7; O2SAT 95
[2016-10-18 23:05] VITALS: BP 147/88; PULSE 92; TEMP 36.6; O2SAT 99
[2016-10-19] MEDS: OXYCODONE/ACETAMINOPHEN 10/325MG TAB PO PRN ×4 (00:43→17:52)
[2016-10-19 07:28] VITALS: BP 148/85; PULSE 90; TEMP 36.3; O2SAT 99
[2016-10-19] MEDS ORDERED: INSULIN GLARGINE SOLOSTAR 100 UNITS/ML 3 ML PEN SC SCH (09:00)
[2016-10-19] MEDS: DOCUSATE SODIUM 100 MG CAP PO SCH (09:28)
[2016-10-19] MEDS: INSULIN ASPART 100 UNITS/ML 3 ML PEN SC SCH ×4 (09:32→21:29)
[2016-10-19] MEDS: INSULIN GLARGINE SOLOSTAR 100 UNITS/ML 3 ML PEN SC SCH (09:34)
[2016-10-19 09:36] LABS: ALBUMIN 3.9 G/DL (3.8-4.8); GAMMA GLOBULIN 0.7 G/DL (0.8-1.7); TOTAL PROTEIN 6.3 G/DL (6.2-8.3); VIT E ALPHA-TOCOPHEROL 14.1 mg/L (5.7-19.9); VIT E BETA&GAMMA-TOCOPHEROL 3.3 mg/L (<=4.3)
--- NOTE | 2016-10-19 09:52 | Progress Note ---
Subjective Date of Service: Oct 19, 2016. Subjective Pt evaluation today including: conversation w/ patient, physical exam, lab review, conversation w/ beauty consultant, review of inpatient medication list Pain: mild pain today PO Intake: adequate Voiding: no voiding problems patient feels his strength is slightly improved, not close to baseline strength no bowel movement since time of admission, taking Miralax, eating well open to trying suppository today discussed plans to appeal stay as well as appeal insurance denial unfortunately could not be done over the weekend told him to expect to be here tomorrow unless insurance reverses decision Problem List Medical Problems: (1) Left lumbar radiculopathy Status: Acute (2) Lumbar radiculopathy Status: Acute (3) Sacroiliac joint dysfunction of left side Status: Acute (4) Sciatica Status: Acute (5) Sciatica of left side Status: Acute Review of Systems Constitutional: + weakness Neurologic: + weakness (proximal thigh and pelvic muscles), + balance problems All Other Systems: Reviewed and Negative Medications Current Inpatient Medications Medications (Trade) Dose Ordered Sig/Brayan Route Start Time Stop Time Status Last Admin Dose Admin Lactated Ringer's 1,000 ml @ 15 mls/hr Q24H IV 10/14/16 11:15 11/13/16 11:14 10/18/16 11:44 15 MLS/HR Acetaminophen (Tylenol Tab) 650 mg Q6H PRN PO 10/14/16 11:15 11/13/16 11:14 Docusate Sodium (coLACE CAP) 100 mg DAILY PO 10/15/16 09:00 11/14/16 08:59 10/19/16 09:28 100 MG Ondansetron HCl (Zofran Inj) 4 mg Q6H PRN IV 10/14/16 11:15 11/13/16 11:14 Tramadol HCl (Ultram Tab) 50 mg Q8H PRN PO 10/14/16 11:15 11/13/16 11:14 Oxycodone/ Acetaminophen (Percocet 10-325MG Tab) 2 tab Q4H PRN PO 10/14/16 17:30 10/28/16 17:29 10/19/16 07:50 2 TAB Hydromorphone HCl (Dilaudid Inj) 1 mg Q3HWA PRN IV 10/14/16 17:30 10/28/16 17:29 Glucose (Glucose 40% Gel) 15-30 GRAMS 15 GRAMS... UD PRN PO 10/14/16 20:30 11/13/16 20:29 Glucose (Glucose Chew Tab) 4-8 Tablets 4 Tabl... UD PRN PO 10/14/16 20:30 11/13/16 20:29 Dextrose (Dextrose 50% 50ML Syringe) 25-50ML OF 50% DW IV FOR... UD PRN IV 10/14/16 20:30 11/13/16 20:29 Glucagon (Glucagon Inj) 1 mg UD PRN SQ 10/14/16 20:30 11/13/16 20:29 Insulin Aspart (novoLOG ASPART) SLIDING SCALE G... ACHS SC 10/14/16 21:00 11/13/16 20:59 10/19/16 09:32 5 UNITS Hydralazine HCl (HydrALAZINE INJ) 10 mg Q6H PRN IV. 10/14/16 20:30 11/13/16 20:29 Lorazepam (Ativan Tab) 1 mg Q10M PRN PO 10/16/16 09:00 Prednisone (PredniSONE TAB) 60 mg DAILY PO 10/17/16 09:00 11/16/16 08:59 10/19/16 09:28 60 MG Polyethylene (Miralax Powder Packet) 17 gm DAILY PRN PO 10/16/16 16:15 11/15/16 16:14 10/18/16 09:35 17 GM Gadobutrol (Gadavist) 6 mmol UD PRN IV 10/17/16 01:15 10/21/16 01:14 Insulin Glargine (Lantus Solostar Pen) 10 units DAILY SC 10/19/16 09:00 11/16/16 10:44 10/19/16 09:34 10 UNITS Objective Vital Signs Date Time Temp Pulse Resp B/P (MAP) Pulse Ox O2 Delivery O2 Flow Rate FiO2 10/19/16 08:29 Room Air 10/19/16 07:28 36.3 90 17 148/85 (106) 99 Room Air 10/19/16 00:15 Room Air 10/18/16 23:05 36.6 92 16 147/88 (107) 99 Room Air 10/18/16 15:32 36.7 90 12 129/80 (96) 95 Room Air 10/18/16 15:15 Room Air Physical Exam General Appearance: WD/WN, no apparent distress Eyes: normal inspection, EOMI, sclerae normal ENT: normal ENT inspection, hearing grossly normal, pharynx normal Neck: supple, no adenopathy, no JVD, trachea midline Respiratory/Chest: chest non-tender, lungs clear, normal breath sounds, no respiratory distress, no accessory muscle use Cardiovascular: regular rate, rhythm, no edema, no gallop, no JVD, no murmur Abdomen: normal bowel sounds, non tender, soft, no organomegaly Extremities: non-tender, no pedal edema, no calf tenderness, normal capillary refill, pelvis stable, + pertinent finding (muscle wasting of thigh muscles) 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, alert, normal mood/affect, oriented x 3, + abnormal gait, + motor weakness (quadriceps 4 out of 5 strength bilaterally) Skin: normal color, warm/dry, + rash (mild erythematous, left thigh, much improved since yesterday) Laboratory Results Last 24 Hours Test 10/18/16 12:14 10/18/16 17:13 10/18/16 20:08 10/19/16 07:57 Bedside Glucose 127 mg/dl 156 mg/dl 191 mg/dl 103 mg/dl Assessment and Plan - Lower extremity weakness and ambulatory dysfunction, due to polymyositis diagnosis based on symptoms of proximal muscle weakness and atrophy of muscles on MRI consistent with myositis treat with Prednisone 60mg daily, will need extended taper, plan to d/c on 60mg follow up with neurology, will check EMG outpatient - DM type II: very well controlled on Metformin with HbA1c of 6.3 prior to admission Novolog coverage while admitted Lantus 10 units daily with Prednisone use no sugars over 200 in the past 24 hours with Lantus 10 units, was 190 last night continue to monitor closely, likely d/c on Lantus 10 units, may need to increase slightly - Elevated blood pressures, possible HTN no h/o HTN prior to admission, variable BP readings continue to monitor, would defer starting any new BP medications until his steroids are tapered down see what BP readings are like in the office patient accepted to [facility] but insurance denied also, insurance denied admission these were denied Thursday late afternoon number is [phone] Account number is [id number] in my opinion, patient needs rehab, he has polymyositis, cannot ambulate independently, fall risk prior to developing this condition he was completely independent, anticipate going to home from rehab also, patient would need a physician to follow him closely as he is on Lantus due to Prednisone, anticipate dose needing adjusted by physician Continued [facility] stay due to: multiple IV medications needed Discharge planning: rehab hospital
[2016-10-19] MEDS ORDERED: BISACODYL 10 MG SUPP PR ONE (10:00)
[2016-10-19] MEDS: LACTATED RINGER'S 1000ML 1,000 ML IV SCH (11:33)
--- NOTE | 2016-10-19 12:44 | HISTORY & PHYSICAL EXAMINATION ---
DATE OF ADMISSION: 10/14/2016 CHIEF COMPLAINT: Lower extremity pain and weakness. SUBJECTIVE: Moderate complaints of pain today, under control. No fevers, sweats, chills. Profound weakness still, grade 2/5 in lower extremities. He is afebrile. DIAGNOSIS: Consistent with myositis. Spine is cleared and he has no brain issues. IMPRESSION: Severe case of myositis. DISPOSITION: Hopefully to rehab later on today or tomorrow. Unfortunately, his insurance company does not work on the weekend, so we cannot get that going here today. I will see him each and every day. Hopefully, he will recover in rehab. I would anticipate approximately 2 weeks of rehab care.
[2016-10-19 15:17] VITALS: BP 124/79; PULSE 98; TEMP 36.6; O2SAT 96
[2016-10-19 22:50] VITALS: BP 134/80; PULSE 95; TEMP 36.8; O2SAT 99
[2016-10-20] MEDS: OXYCODONE/ACETAMINOPHEN 10/325MG TAB PO PRN ×5 (00:17→22:03)
[2016-10-20 07:30] VITALS: BP 141/87; PULSE 85; TEMP 36.6; O2SAT 96
[2016-10-20 09:20] LABS: BUN/CREATININE RATIO 30.7 (10-20); CALCIUM 9.7 mg/dl (8.5-10.1); CREATININE 0.59 mg/dl (0.60-1.40); MAGNESIUM 1.9 mg/dl (1.8-2.4)
[2016-10-20 09:25] LABS: THYROID STIMULATING HORMONE 2.56 uIu/ml (0.300-4.500)
[2016-10-20] MEDS: INSULIN ASPART 100 UNITS/ML 3 ML PEN SC SCH ×4 (09:48→21:00)
[2016-10-20] MEDS: INSULIN GLARGINE SOLOSTAR 100 UNITS/ML 3 ML PEN SC SCH (09:49)
[2016-10-20] MEDS: DOCUSATE SODIUM 100 MG CAP PO SCH (09:49)
[2016-10-20] MEDS: LACTATED RINGER'S 1000ML 1,000 ML IV SCH (13:00)
[2016-10-20] MEDS: CHOLECALCIFEROL 1000 INTER.UNIT TAB PO SCH (13:20)
[2016-10-20 15:10] VITALS: BP 128/84; PULSE 112; TEMP 36.8; O2SAT 96
[2016-10-20 15:45] VITALS: PULSE 96
--- NOTE | 2016-10-20 16:35 | Progress Note ---
Subjective Date of Service: Oct 20, 2016. Subjective Pt evaluation today including: conversation w/ patient, physical exam, chart review, lab review, review of studies (all studies done this hospital stay), conversation w/ contact center consultant (social work, insurance medical delivery driver, [facility]), review of inpatient medication list Pain: denies PO Intake: normal Voiding: no voiding problems patient reports ongoing weakness in hips but "a little better" than a few days ago denies sob, chest pain, abd pain, fecal incontinence or constipation anxious to start rehab reports just mild paresthesias of legs Problem List Medical Problems: (1) Left lumbar radiculopathy Status: Acute (2) Lumbar radiculopathy Status: Acute (3) Sacroiliac joint dysfunction of left side Status: Acute (4) Sciatica Status: Acute (5) Sciatica of left side Status: Acute Review of Systems Constitutional: No fever, No chills Cardiac: No chest pain Abdomen: No nausea, No vomiting, No diarrhea Objective Vital Signs Date Time Temp Pulse Resp B/P (MAP) Pulse Ox O2 Delivery O2 Flow Rate FiO2 10/20/16 08:30 Room Air 10/20/16 07:30 36.6 85 16 141/87 (105) 96 Room Air 10/20/16 00:15 Room Air 10/19/16 22:50 36.8 95 16 134/80 (98) 99 Room Air Physical Exam General Appearance: no apparent distress ENT: pharynx normal Neck: no adenopathy, no JVD Respiratory/Chest: lungs clear, no respiratory distress, no accessory muscle use Cardiovascular: regular rate, rhythm, no edema, no gallop, no JVD, no murmur Abdomen: normal bowel sounds, non tender, soft, no organomegaly Extremities: no pedal edema Neurologic/Psychiatric: alert, oriented x 3, + pertinent finding (hip flexion close to 3/5 b/l; foot dorsiflexion/plantarflexion 4-5/5 b/l; muscle wasting noted about either thigh; muscle wasting of intrinsic muscles of both hands) Comments: proximal muscle strength of shoulder girdle 5/5 strength Laboratory Results Last 24 Hours Test 10/19/16 17:08 10/19/16 20:36 10/20/16 08:01 10/20/16 08:31 Bedside Glucose 183 mg/dl 198 mg/dl 101 mg/dl Sodium Level 137 mmol/L Potassium Level 4.0 mmol/L Chloride Level 102 mmol/L Carbon Dioxide Level 31 mmol/L Anion Gap 4.0 mmol/L Blood Urea Nitrogen 18 mg/dl Creatinine 0.59 mg/dl Est Creatinine Clear Calc Drug Dose 116.2 ml/min Estimated GFR () 127.5 Estimated GFR (Non- 110.0 BUN/Creatinine Ratio 30.7 Random Glucose 160 mg/dl Calcium Level 9.7 mg/dl Magnesium Level 1.9 mg/dl 25-Hydroxy Vitamin D Total 20.5 ng/ml Thyroid Stimulating Hormone (TSH) 2.560 uIu/ml Free Thyroxine 1.19 ng/dl Test 10/20/16 12:15 10/20/16 14:10 Bedside Glucose 187 mg/dl Assessment and Plan 61yo male with: 1. severe/progressive b/l leg weakness - mainly proximal muscles of hip girdle - after extensive orthopedic/neurological work-up there is suspicion he may have polymyositis. He will need additional w/u, however, in the outpatient neuro clinic (EMG/NCS, etc) to exclude other diseases. He does have muscle wasting of both hands on exam. Appreciate neurology and orthopedic consultations. To continue on prednisone 60mg daily for working diagnosis of polymyositis. Numerous other labs are pending (aldolase, etc). PT, OT continues. Needs rehab. 2. weight loss - patient has lost 40 pounds since early spring. If #1 is not from a myositis process -- could he have a paraneoplastic process? Thus far the only other lab that is abnormal is his SPEP. Will send urine immunofixation. He will close follow-up of #1 and the weight loss to ensure no other occult disease process is present. 3. T2DM - control adequate at this time with lantus/novolog. 4. vitamin D insufficiency - start vit D 2000 IU daily. 5. 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 No other symptoms/signs of avendano-hypopituitarism. 6. L-spine spinal stenosis s/p decompression/fusion earlier this spring by Dr. Freeman - has seroma on imaging this admission; per ortho nothing to do at this time. 7. DVT proph - heparin TID. I spent 30 minutes today speaking the a medical delivery driver at [facility]. Both the patient's inpatient status was denied as well as request for inpatient rehab. The medical delivery driver DID overturn the decision to deny inpatient hospitalization. However, he stated there was not enough evidence that inpatient rehab was needed (he cited that the patient does not require the services of a physician seeing him 3 days/week at [facility]) and therefore would not overturn the denial for [facility]. I called and spoke with the [facility] rep Michael. I truly believe that inpatient rehab is in Mr. Upton's best interest and he is an excellent inpatient rehab candidate. He continues to have neuromuscular deficits that can be addressed through intensive rehab. From what I understand the patient will appeal the denial for inpatient rehab. I agree with such. Await appeal. Continued [facility] stay due to: ambulation difficulties, home environment unsafe for pt Discharge planning: rehab hospital (if appeal is accepted)
[2016-10-20] MEDS: HEPARIN SOD 5000 UNIT/0.5 ML CARP SQ SCH ×2 (17:32→22:07)
[2016-10-20] MEDS: POLYETHYLENE (MIRALAX) 17 GM PACK PO PRN (22:02)
[2016-10-20 23:13] VITALS: BP 132/83; PULSE 85; TEMP 36.7; O2SAT 96
[2016-10-20 23:40] VITALS: BP 147/77; PULSE 92; TEMP 36.6; O2SAT 98
[2016-10-21] MEDS: OXYCODONE/ACETAMINOPHEN 10/325MG TAB PO PRN ×5 (02:40→23:18)
[2016-10-21] MEDS: HEPARIN SOD 5000 UNIT/0.5 ML CARP SQ SCH ×3 (06:30→22:03)
[2016-10-21 07:38] VITALS: BP 140/88; PULSE 83; TEMP 36.3; O2SAT 99
[2016-10-21 07:59] VITALS: O2SAT 99
[2016-10-21] MEDS: CHOLECALCIFEROL 1000 INTER.UNIT TAB PO SCH (09:16)
[2016-10-21] MEDS: DOCUSATE SODIUM 100 MG CAP PO SCH (09:16)
[2016-10-21] MEDS: INSULIN GLARGINE SOLOSTAR 100 UNITS/ML 3 ML PEN SC SCH (09:21)
[2016-10-21] MEDS: INSULIN ASPART 100 UNITS/ML 3 ML PEN SC SCH ×4 (09:22→21:00)
[2016-10-21] MEDS: LACTATED RINGER'S 1000ML 1,000 ML IV SCH (12:02)
[2016-10-21 15:00] VITALS: BP 127/75; PULSE 92; TEMP 36.6; O2SAT 98
--- NOTE | 2016-10-21 18:25 | Hospitalist Progress Note ---
Hospitalist Progress Note Date of Service Oct 21, 2016. (Laura Ramos ., PA-C) Subjective Pt evaluation today including: conversation w/ patient, conversation w/ family ( at bedside ), physical exam, chart review, lab review, review of studies, review of inpatient medication list Voiding: no voiding problems, no incontinence Patient feeling well. Optimistic about rehab and getting stronger. +bilateral lower extremity pain controlled with pain medications provided. +bilateral lower extremity weakness, numbness/tingling continues, but is improving. Eating and drinking OK. +BMs during hospital stay. Patient denies any fever, chills, sweats, lightheadedness, dizziness, vision changes, CP, palpitations, edema, SOB, wheezing, cough, abdominal pain, nausea, vomiting, diarrhea, urinary symptoms, melena, anxiety/depression, active bleeding, or new skin discoloration/changes. (Laura Ramos ., PA-C) Medications Current Inpatient Medications Medications (Trade) Dose Ordered Sig/Brayan Route Start Time Stop Time Status Last Admin Dose Admin Lactated Ringer's 1,000 ml @ 15 mls/hr Q24H IV 10/14/16 11:15 11/13/16 11:14 10/21/16 12:02 15 MLS/HR Acetaminophen (Tylenol Tab) 650 mg Q6H PRN PO 10/14/16 11:15 11/13/16 11:14 Docusate Sodium (coLACE CAP) 100 mg DAILY PO 10/15/16 09:00 11/14/16 08:59 10/21/16 09:16 100 MG Ondansetron HCl (Zofran Inj) 4 mg Q6H PRN IV 10/14/16 11:15 11/13/16 11:14 Tramadol HCl (Ultram Tab) 50 mg Q8H PRN PO 10/14/16 11:15 11/13/16 11:14 Oxycodone/ Acetaminophen (Percocet 10-325MG Tab) 2 tab Q4H PRN PO 10/14/16 17:30 10/28/16 17:29 10/21/16 12:06 2 TAB Hydromorphone HCl (Dilaudid Inj) 1 mg Q3HWA PRN IV 10/14/16 17:30 10/28/16 17:29 Glucose (Glucose 40% Gel) 15-30 GRAMS 15 GRAMS... UD PRN PO 10/14/16 20:30 11/13/16 20:29 Glucose (Glucose Chew Tab) 4-8 Tablets 4 Tabl... UD PRN PO 10/14/16 20:30 11/13/16 20:29 Dextrose (Dextrose 50% 50ML Syringe) 25-50ML OF 50% DW IV FOR... UD PRN IV 10/14/16 20:30 11/13/16 20:29 Glucagon (Glucagon Inj) 1 mg UD PRN SQ 10/14/16 20:30 11/13/16 20:29 Insulin Aspart (novoLOG ASPART) SLIDING SCALE G... ACHS SC 10/14/16 21:00 11/13/16 20:59 10/21/16 12:53 6 UNITS Hydralazine HCl (HydrALAZINE INJ) 10 mg Q6H PRN IV. 10/14/16 20:30 11/13/16 20:29 Lorazepam (Ativan Tab) 1 mg Q10M PRN PO 10/16/16 09:00 Prednisone (PredniSONE TAB) 60 mg DAILY PO 10/17/16 09:00 11/16/16 08:59 10/21/16 09:16 60 MG Insulin Glargine (Lantus Solostar Pen) 10 units DAILY SC 10/19/16 09:00 11/16/16 10:44 10/21/16 09:21 10 UNITS Polyethylene (Miralax Powder Packet) 17 gm BID PRN PO 10/19/16 21:00 11/15/16 16:14 10/20/16 22:02 17 GM Cholecalciferol (Vitamin D Tab) 2,000 inter.unit QAM PO 10/20/16 10:30 11/19/16 10:29 10/21/16 09:16 2,000 INTER.UNIT Heparin Sodium (Porcine) (Heparin Sq 5000 Unit/0.5ml) 5,000 unit Q8 SQ 10/20/16 16:30 11/19/16 16:29 10/21/16 14:08 5,000 UNIT (Laura Ramos PA-C) Objective Vital Signs Date Time Temp Pulse Resp B/P (MAP) Pulse Ox O2 Delivery O2 Flow Rate FiO2 10/21/16 08:30 Room Air 10/21/16 07:59 99 Room Air 10/21/16 07:38 36.3 83 14 140/88 (105) 99 Room Air 10/21/16 00:00 Room Air 10/20/16 23:40 36.6 92 15 147/77 (100) 98 Room Air 10/20/16 15:45 96 10/20/16 15:45 Room Air 10/20/16 15:10 36.8 112 16 128/84 (99) 96 Room Air (Laura Ramos PA-C) Physical Exam General Appearance: WD/WN, no apparent distress Eyes: normal inspection, PERRL ENT: hearing grossly normal Neck: supple Respiratory/Chest: lungs clear, no respiratory distress, no accessory muscle use Cardiovascular: regular rate, rhythm Abdomen: normal bowel sounds, non tender, soft Extremities: no pedal edema, no calf tenderness Neurologic/Psychiatric: alert, normal mood/affect, oriented x 3, + motor weakness (bilateral lower extremities ) Skin: normal color, warm/dry, no rash (Laura Ramos PA-C) Laboratory Results Last 24 Hours Test 10/20/16 17:25 10/20/16 20:46 10/21/16 08:06 10/21/16 11:57 Bedside Glucose 167 mg/dl 174 mg/dl 121 mg/dl 108 mg/dl (Laura Ramos, PILAR-C) Assessment and Plan 61 y/o male with a history of DM II, lumbar stenosis w/radiculopathy s/p lumbar decompression and fusion 06/25/16 who presents with lower extremity weakness and paresthesias. Presents direct admission by Dr. Freeman, hospitalist consulted for medical management. Lower extremity weakness and ambulatory dysfunction, due to polymyositis - Pain management, PT/OT as per primary team- Dr. Freeman - Neurology consulted -- Laboratory workup pending -- Slow Prednisone taper starting at 60 mg- taper instructions in neurology note -- f/u outpatient for continued workup T2DM- HgbA1c improved to 6.3- CONTROLLED despite Prednisone treatment: - Hold Metformin- reinstitute on discharge - Lantus 10 u daily, BSG ACHS and sliding insulin scale Vitamin D insufficiency: Vitamin D 2000 IU daily ?HTN: f/u w/ PCP DVT prophylaxis: Heparin TID Code Status: LEVEL I, FULL Disposition: Discharge to acute rehab as per primary service- patient is stable for discharge from medical standpoint (Laura Ramos ., PA-C) Reviewed: Pt Seen/Exam by Me (Asia Dinero, ) History Pt is still with LE weakness, but has been improving some. He is unable to ambulate without a walker + assistance. No UE weakness. No other concerns. Tolerating PO without issue. Denies chest pain, SOB. Just spoke with insurance regarding appeal and he updated [facility] liason who will be faxing items insurance requested JOSH. Agree with HPI/ROS as noted above. (Asia Dinero, ) General Appearance: WD/WN, no apparent distress Respiratory: normal breath sounds, no respiratory distress Cardiovascular: normal peripheral pulses, regular rate, rhythm Gastrointestinal: non tender, soft Extremities: non-tender, no pedal edema Neurologic/Psychiatric: alert, normal mood/affect Skin Characteristics: normal color, warm/dry (Asia Dinero DO) Assessment/Plan Agree with plan as outlined above Pt with likely polymyositis s/p lumbar decompression and fusion 06/25/16 Awaiting approval for [facility] for rehab given need for ongoing aggressive PT/OT for above Vit D is low (Asia Dinero, )
[2016-10-21] MEDS: POLYETHYLENE (MIRALAX) 17 GM PACK PO PRN (22:04)
[2016-10-21 23:13] VITALS: BP 132/83; PULSE 85; TEMP 36.7; O2SAT 96
[2016-10-22] MEDS: OXYCODONE/ACETAMINOPHEN 10/325MG TAB PO PRN ×5 (04:29→23:50)
[2016-10-22] MEDS: HEPARIN SOD 5000 UNIT/0.5 ML CARP SQ SCH ×3 (05:50→21:39)
[2016-10-22 07:43] VITALS: BP 148/86; PULSE 83; TEMP 36.7; O2SAT 99
[2016-10-22 07:44] VITALS: O2SAT 99
[2016-10-22] MEDS: DOCUSATE SODIUM 100 MG CAP PO SCH (08:35)
[2016-10-22] MEDS: CHOLECALCIFEROL 1000 INTER.UNIT TAB PO SCH (08:37)
[2016-10-22] MEDS: INSULIN ASPART 100 UNITS/ML 3 ML PEN SC SCH ×4 (09:08→21:39)
[2016-10-22] MEDS: INSULIN GLARGINE SOLOSTAR 100 UNITS/ML 3 ML PEN SC SCH (09:10)
[2016-10-22] MEDS: LACTATED RINGER'S 1000ML 1,000 ML IV SCH (11:28)
[2016-10-22 15:34] VITALS: BP 118/77; PULSE 105; TEMP 36.5; O2SAT 99
[2016-10-22 16:05] VITALS: PULSE 96
[2016-10-22 16:06] LABS: JO-1 ANTIBODY TC 5810X <1.0 NEG AI (<1.0 NEG)
--- NOTE | 2016-10-22 16:34 | Progress Note ---
Subjective Date of Service: Oct 22, 2016. Subjective Pt evaluation today including: conversation w/ patient, conversation w/ family Pt states he is still having difficulty ambulating, but can pick his LE up at rest, R<L. Tolerating PO. Still with pain at times. Pt denies fever, SOB, chest pain, abd pain, n/v/c/d, LE swelling. Problem List Medical Problems: (1) Left lumbar radiculopathy Status: Acute (2) Lumbar radiculopathy Status: Acute (3) Sacroiliac joint dysfunction of left side Status: Acute (4) Sciatica Status: Acute (5) Sciatica of left side Status: Acute Review of Systems All Other Systems: Reviewed and Negative Objective Vital Signs Date Time Temp Pulse Resp B/P (MAP) Pulse Ox O2 Delivery O2 Flow Rate FiO2 10/22/16 16:05 Room Air 10/22/16 15:34 36.5 105 18 118/77 (91) 99 Room Air 10/22/16 10:40 Room Air 10/22/16 07:44 99 Room Air 10/22/16 07:43 36.7 83 9 148/86 (106) 99 Room Air 10/21/16 23:15 Room Air 10/21/16 23:13 36.7 85 14 132/83 (99) 96 Room Air Physical Exam General Appearance: WD/WN, no apparent distress Respiratory/Chest: normal breath sounds, no respiratory distress Cardiovascular: regular rate, rhythm, no edema Abdomen: non tender, soft Extremities: non-tender, no pedal edema Neurologic/Psychiatric: alert, oriented x 3 Skin: normal color, warm/dry Laboratory Results Last 24 Hours Test 10/21/16 17:08 10/21/16 20:54 10/22/16 08:09 10/22/16 11:54 Bedside Glucose 194 mg/dl 166 mg/dl 95 mg/dl 212 mg/dl Assessment and Plan 61 y/o male with a history of DM II, lumbar stenosis w/radiculopathy s/p lumbar decompression and fusion 06/25/16 who presents with lower extremity weakness and paresthesias. Presents direct admission by Dr. Freeman, hospitalist consulted for medical management. Lower extremity weakness and ambulatory dysfunction, due to polymyositis - Pain management, PT/OT as per primary team- Dr. Sefter - Neurology consulted -- Laboratory workup pending -- Slow Prednisone taper starting at 60 mg- taper instructions in neurology note -- f/u outpatient for continued workup T2DM- HgbA1c improved to 6.3- CONTROLLED despite Prednisone treatment: - Hold Metformin- reinstitute on discharge - Lantus 10 u daily, BSG ACHS and sliding insulin scale Vitamin D insufficiency: Vitamin D 2000 IU daily ?HTN: f/u w/ PCP DVT prophylaxis: Heparin TID Code Status: LEVEL I, FULL Disposition:Ongoing issues with insurance approval for rehab, pt is awaiting determination from family appeal. Continued [facility] stay due to: ambulation difficulties, home environment unsafe for pt Discharge planning: rehab hospital (if appeal is accepted)
[2016-10-22 22:47] VITALS: BP 132/75; PULSE 91; TEMP 36.6; O2SAT 98
[2016-10-23 02:22] LABS: ANTI-STRIATED MUSCLE NEGATIVE (NEGATIVE); RECEPTOR BINDING AB <0.30 nmol/L
[2016-10-23] MEDS: HEPARIN SOD 5000 UNIT/0.5 ML CARP SQ SCH ×2 (05:45→13:33)
[2016-10-23] MEDS: OXYCODONE/ACETAMINOPHEN 10/325MG TAB PO PRN ×3 (05:49→14:19)
[2016-10-23 07:58] VITALS: BP 136/84; PULSE 80; TEMP 36.3; O2SAT 95
[2016-10-23 08:05] VITALS: O2SAT 95
[2016-10-23] MEDS: DOCUSATE SODIUM 100 MG CAP PO SCH (09:05)
[2016-10-23] MEDS: CHOLECALCIFEROL 1000 INTER.UNIT TAB PO SCH (09:05)
[2016-10-23] MEDS: INSULIN ASPART 100 UNITS/ML 3 ML PEN SC SCH ×2 (09:08→13:32)
[2016-10-23] MEDS: INSULIN GLARGINE SOLOSTAR 100 UNITS/ML 3 ML PEN SC SCH (09:10)
[2016-10-23] MEDS: LACTATED RINGER'S 1000ML 1,000 ML IV SCH (13:33)
--- NOTE | 2016-10-23 14:10 | PROGRESS NOTE ---
DATE: 10/23/2016 DATE: 10/23/2016 SUBJECTIVE: Evelio is alert and oriented, mentation normal here today. He was able to get out of bed, lift his right leg slightly here today and get to a chair. He has no fevers, sweats, chills. Images reviewed. He still has 2/5 motor strength to lower extremities, significant muscle atrophy but no signs of spinal cord injury. IMPRESSION: Myositis with loss of motor strength. DISPOSITION: He is a perfect candidate for rehabilitation inpatient, I do not think it is safe for him to go home. Will work on inpatient rehab facility hopefully tomorrow by Thursday. If not Thursday then will more than likely stay the weekend, maybe we can get him rehab next week.
--- NOTE | 2016-10-23 14:44 | Discharge Instructions ---
Discharge Instructions Date of Service Oct 23, 2016. Admission Reason for Admission: Paralysis Of Lower Extremities Discharge Discharge Diagnosis / Problem: Polymyositis Discharge Goals Goal(s): Decrease discomfort, Improve function, Increase independence Activity Recommendations Activity Limitations: resume your previous activity (as able) . Instructions / Follow-Up Instructions / Follow-Up Dr. Freeman as per his recommendation Dr. Betancur as scheduled prior to discharge Dr. Gar in 1-2 weeks Current Hospital Diet Patient's current hospital diet: Diabetes Type 2 Diet Discharge Diet Recommended Diet: AHA Diet (Heart Healthy), Diabetes Type 2 Diet Pending Studies Studies pending at discharge: no Laboratory Results Hemoglobin A1c Test 10/14/16 12:14 Range/Units Estimated Average Glucose 134 mg/dl Hemoglobin A1c 6.3 H 4.5-5.6 % Medical Emergencies . Who to Call and When: Medical Emergencies: If at any time you feel your situation is an emergency, please call 911 immediately. . Non-Emergent Contact Non-Emergency issues call your: Primary Care Provider, Surgeon . . "Provider Documentation" section prepared by Asia Dinero. . VTE Core Measure Inpt VTE Proph given/why not?: T.E.D. Stockings, Treatment not indicated
--- NOTE | 2016-10-23 14:45 | Discharge Summary ---
Discharge Summary Date of Service Oct 23, 2016. Discharge Summary Admission Date: Oct 14, 2016 at 11:24 Discharge Date: Oct 17, 2016 Discharge Disposition: Home with services Principal Diagnosis: Polymyositis Problems/Secondary Diagnoses: DM Lumbar stenosis with radiculopathy Immunizations: History of Pneumococcal: Yes Consultations: ortho Medication Reconciliation New Medications: Prednisone (Prednisone) 20 Mg Tab 60 MG PO DAILY for 30 Days, #90 TAB Continued Medications: Bumetanide (Bumex) 1 Mg Tab 1 MG PO QAM, TAB Hydromorphone Hcl (Dilaudid) 2 Mg Tab 1 TAB PO QID PRN for Pain for 3 Days, #12 TAB (This prescription has been renewed) Ibuprofen (Motrin) 600 Mg Tab 600 MG PO Q6H PRN for Pain, TAB TAKE WITH FOOD Metformin Hcl (Glucophage) 500 Mg Tab 1000 MG PO BID, TAB Multiple Vitamins W/ Minerals (Mens 50+ Multi Vitamin &) 1 Tab Tab 1 TAB PO QAM Discharge Exam Pt is very discouraged regarding his denial for inpt rehab at [facility]. He is planning to contact his [facility] due to this. He is stable otherwise. Feels he is able to pickle solution maker LE more, but still with great ambulation difficulties. Tolerating PO without issue. Pt denies fever, SOB, chest pain, abd pain, n/v/c/ d, LE pain or swelling. Physical Exam: General Appearance: WD/WN, no apparent distress Respiratory/Chest: normal breath sounds, no respiratory distress Cardiovascular: regular rate, rhythm, no edema Abdomen / GI: non tender, soft Extremities: no calf tenderness, no pedal edema Neurologic/Psychiatric: alert, oriented x 3 Skin: normal color, warm/dry Hospital Course 61 y/o male with a history of DM II, lumbar stenosis w/radiculopathy s/p lumbar decompression and fusion 06/25/16 who presents with lower extremity weakness and paresthesias. Presents direct admission by Dr. Freeman, hospitalist consulted for medical management. Lower extremity weakness and ambulatory dysfunction, due to polymyositis - Pain management, PT/OT as per primary team- Dr. Freeman - Neurology consulted -- Laboratory workup pending -- Slow Prednisone taper starting at 60 mg- taper as above -- f/u outpatient for continued workup T2DM- HgbA1c improved to 6.3- CONTROLLED despite Prednisone treatment: resume home meds Vitamin D insufficiency: Vitamin D 2000 IU daily ?HTN: f/u w/ PCP Plan will be for outpt rehab with [facility] despite recommendations from PT/OT, neuro , and ortho for inpt rehab and multiple appeals from hospitalist physicians. Total Time Spent: Greater than 30 minutes This includes examination of the patient, discharge planning, medication reconciliation, and communication with other providers. Discharge Instructions Please refer to the electronic Patient Visit Report (Discharge Instructions) for additional information. Follow-Up Dr. Freeman as per his recommendation Dr. Betancur as scheduled prior to discharge Dr. Gar in 1-2 weeks Additional Copies To Osmin Betancur M.D.
[2016-10-23 14:59] VITALS: BP 136/84; PULSE 80; TEMP 36.3; O2SAT 95
== END 2016-10-23 16:55 | disposition home or self-care (01) | DRG 547 ==
LOC: C.MSN 11:24
PROVIDERS: ADMIT Orthopaedic Surgery Orthopaedic Surgery of the Spine; ATTEND Family Medicine
DX: M33.20 Polymyositis, organ involvement unspecified (principal); M48.06 Spinal stenosis, lumbar region; M54.16 Radiculopathy, lumbar region; E11.9 Type 2 diabetes mellitus without complications; I10 Essential (primary) hypertension; E55.9 Vitamin D deficiency, unspecified; R90.89 Other abnormal findings on diagnostic imaging of central nervous system; Z98.1 Arthrodesis status; Z79.84 Long term (current) use of oral hypoglycemic drugs; Z88.5 Allergy status to narcotic agent; Z88.8 Allergy status to other drugs, medicaments and biological substances; Z83.3 Family history of diabetes mellitus; Z82.49 Family history of ischemic heart disease and other diseases of the circulatory system; Z80.1 Family history of malignant neoplasm of trachea, bronchus and lung

== ENCOUNTER 2017-02-09 17:03 | Emergency (ER) | payer BC ==
[~2017-02-09] VITALS: Ht 172.7 cm; Wt 64.7 kg
[~2017-02-09 17:03] MED LIST changes: +IBUP-1450 PO; +PRD20 PO
[2017-02-09 17:22] VITALS: TEMP 37.3; Ht 172.7 cm; Wt 64.7 kg
--- NOTE | 2017-02-09 18:05 | DIAGNOSTIC IMAGING REPORT ---
CHEST ONE VIEW PORTABLE CLINICAL HISTORY: L chest numbness, tachycardia COMPARISON STUDY: 10/14/2016 FINDINGS: The heart is normal in size. There is no failure. There is no lobar consolidation. Increased markings the left superhilar region, likely representing a summation with left worse costochondral junction. There is no failure. There are no pleural effusions. Degenerative changes are present within the spine.[ IMPRESSION: No active disease in the chest. Electronically signed by: Eduardo Basilio M.D. 02/09/2017 6:04 PM Dictated Date/Time: 02/09/2017 6:03 PM
[2017-02-09 18:20] LABS: POINT OF CARE TROPONIN I 0.03 ng/ml (0-0.045)
[2017-02-09 18:20] LABS: BASO % 0.5 %; BASO ABS # 0.06 K/uL (0-0.2); COMPLETE YES; EOS % 1.4 %; HEMATOCRIT 41.2 % (42-52); IG% 0.3 %; LYMPH % 24.1 %; MEAN CELL VOLUME 87.5 fL (80-100); MEAN CORPUSCULAR HEMOGLOBIN 32.3 pg (25-34); MEAN CORPUSCULAR HGB CONC 36.9 g/dl (32-36); MEAN PLATELET VOLUME 9.5 fL (7.4-10.4); MONO % 7.6 %; NEUT % 66.1 %; PLATELET COUNT 480 K/uL (130-400); RED BLOOD COUNT 4.71 M/uL (4.7-6.1); WHITE BLOOD COUNT 11.64 K/uL (4.8-10.8)
[2017-02-09 18:23] VITALS: O2SAT 98
[2017-02-09 18:30] LABS: ALT/SGPT 25 U/L (12-78); AST/SGOT 18 U/L (15-37); BLOOD UREA NITROGEN 17 mg/dl (7-18); BUN/CREATININE RATIO 21.8 (10-20); CALCIUM 9.5 mg/dl (8.5-10.1); CARBON DIOXIDE 26 mmol/L (21-32); CHLORIDE 97 mmol/L (98-107); CREATININE 0.77 mg/dl (0.60-1.40); GLUCOSE 102 mg/dl (70-99); MAGNESIUM 1.6 mg/dl (1.8-2.4); POTASSIUM 3.8 mmol/L (3.5-5.1); SODIUM 132 mmol/L (136-145)
[2017-02-09 18:40] LABS: ALB/GLOB RATIO 0.7 (0.9-2); ALKALINE PHOSPHATASE 95 U/L (45-117)
[2017-02-09] MEDS ORDERED: OPTIRAY 320 IV PRN (19:30)
--- NOTE | 2017-02-09 19:50 | DIAGNOSTIC IMAGING REPORT ---
CT ANGIOGRAM OF THE CHEST CLINICAL HISTORY: Tachycardia. Left chest numbness. COMPARISON STUDY: Chest x-ray dated 02/09/2017 TECHNIQUE: Following the IV administration of 90 mL of Optiray-320, CT angiogram of the thorax was performed from the thoracic inlet to the lung bases utilizing the pulmonary embolus protocol. Images are reviewed in the axial, sagittal, and coronal planes. IV contrast was administered without complication. MIP imaging was performed. A dose lowering technique was utilized adhering to the principles of ALARA. CT DOSE: 240.60 mGy.cm FINDINGS: No pathologically enlarged axillary mediastinal or hilar lymph nodes were visualized. There was no evidence of thoracic aortic dilatation. There were no pulmonary artery filling defects to indicate acute pulmonary embolism. No pleural effusions are visualized. There are right lower lobe airspace opacities, consistent with either atelectasis or a small focal pneumonia. IMPRESSION: 1. No evidence of acute pulmonary embolism 2. Minor dependent right lower lobe airspace opacities, atelectatic versus infectious/inflammatory. Electronically signed by: Eduardo Basilio M.D. 02/09/2017 7:49 PM Dictated Date/Time: 02/09/2017 7:46 PM
[2017-02-09] MEDS ORDERED: SODIUM CHLORIDE 0.9% 1000ML 1,000 ML IV STA (20:21)
[2017-02-09 20:55] VITALS: BP 147/94; PULSE 99; O2SAT 98
[2017-02-09] MEDS ORDERED: AZIT250T PO (20:57)
--- NOTE | 2017-02-09 20:58 | EMERGENCY ROOM VISIT NOTE ---
History First contact with patient: 17:32 Chief Complaint: RESPIRATORY PROBLEMS Stated Complaint: HARD TIME BREATHING,PAIN UNDER LEFT BREAST Nursing Triage Summary: pt reports increased sob over last 3 days with pain in low back and ribs pt also reports feels like my heart rate has been elevated also History of Present Illness The patient is a 61 year old male who presents to the Emergency Room via private vehicle accompanied by 2 females with complaints of "hard time breathing , pain under left breast". The patient states that for the past 3 days he has been experiencing shortness of breath and numbness at the base of the left anterior ribs. He notes that there is also a tingling sensation at times. He has been taking tramadol every 6 hours. He denies any smoking, history of blood clots, history of heart attack, falling/trauma, or medication for pain. Review of Systems A complete 10-point Review of Systems was discussed with the patient, with pertinent positives and negatives listed in the History of Present Illness. All remaining Review of Systems questions can be considered negative unless otherwise specified. Past Medical/Surgical History Medical Problems: (1) Carpal tunnel syndrome (2) Left leg pain (3) Lower extremity weakness (4) Lumbar stenosis with neurogenic claudication (5) Paralysis Family History Cancer Diabetes mellitus Heart disease Hypertension Lung disease Social History Smoking Status: Never Smoker Alcohol Use: none Drug Use: none Marital Status: Housing Status: lives with significant other Occupation Status: disabled Current/Historical Medications Scheduled Azithromycin (Zithromax), 1 PKT PO UD Bumetanide (Bumex), 1 MG PO QAM Metformin Hcl (Glucophage), 1,000 MG PO BID Multiple Vitamins W/ Minerals (Mens 50+ Multi Vitamin &), 1 TAB PO QAM Prednisone (Prednisone), 60 MG PO DAILY Scheduled PRN Hydromorphone Hcl (Dilaudid), 1 TAB PO QID PRN for Pain Ibuprofen (Motrin), 600 MG PO Q6H PRN for Pain Physical Exam Vital Signs Date Time Temp Pulse Resp B/P (MAP) Pulse Ox O2 Delivery O2 Flow Rate FiO2 02/09/17 20:55 99 20 147/94 98 Room Air 02/09/17 19:59 109 20 150/92 98 Room Air 02/09/17 19:23 108 20 147/91 100 Room Air 02/09/17 18:25 108 12/4/17 18:23 98 Room Air 02/09/17 17:22 37.3 126 20 130/88 99 Room Air Physical Exam VITAL SIGNS - Vital signs and nursing notes were reviewed. Stable. Tachycardic. GENERAL -61-year-old male appearing his stated age who is in no acute distress. Communicates well with provider and answers questions appropriately. SKIN - Without rashes. No petechial rashes. There is no herpetic or zoster- like rash overlying the left anterior ribs. HEAD - NC/AT. EYES - Sclera anicteric. MOUTH/OROPHARYNX - Without perioral cyanosis. LUNGS - Chest wall symmetric without accessory muscle use, intercostals retractions, or central cyanosis. Normal vesicular breath sounds CTA B/L. No wheezes, rales, or rhonchi appreciated. CARDIAC - RRR with S1/S2. No murmur, rubs, or gallops appreciated. ABDOMEN - Abdominal contour normal without pulsations or visible masses. BS normoactive all four quadrants. No tenderness, palpable masses, hepatosplenomegaly, or ascites noted. No left rib tenderness. Medical Decision & Procedures ER Provider Diagnostic Interpretation: [~ rep ct add3]] CHEST ONE VIEW PORTABLE CLINICAL HISTORY: L chest numbness, tachycardia COMPARISON STUDY: 10/14/2016 FINDINGS: The heart is normal in size. There is no failure. There is no lobar consolidation. Increased markings the left superhilar region, likely representing a summation with left worse costochondral junction. There is no failure. There are no pleural effusions. Degenerative changes are present within the spine.[ IMPRESSION: No active disease in the chest. Electronically signed by: Eduardo Basilio M.D. 02/09/2017 6:04 PM Dictated Date/Time: 02/09/2017 6:[address] ANGIOGRAM OF THE CHEST CLINICAL HISTORY: Tachycardia. Left chest numbness. COMPARISON STUDY: Chest x-ray dated 02/09/2017 TECHNIQUE: Following the IV administration of 90 mL of Optiray-320, CT angiogram of the thorax was performed from the thoracic inlet to the lung bases utilizing the pulmonary embolus protocol. Images are reviewed in the axial, sagittal, and coronal planes. IV contrast was administered without complication. MIP imaging was performed. A dose lowering technique was utilized adhering to the principles of ALARA. CT DOSE: 240.60 mGy.cm FINDINGS: No pathologically enlarged axillary mediastinal or hilar lymph nodes were visualized. There was no evidence of thoracic aortic dilatation. There were no pulmonary artery filling defects to indicate acute pulmonary embolism. No pleural effusions are visualized. There are right lower lobe airspace opacities, consistent with either atelectasis or a small focal pneumonia. IMPRESSION: 1. No evidence of acute pulmonary embolism 2. Minor dependent right lower lobe airspace opacities, atelectatic versus infectious/inflammatory. Electronically signed by: Eduardo Basilio M.D. 02/09/2017 7:49 PM Dictated Date/Time: 02/09/2017 7:46 PM Laboratory Results 02/09/17 17:50 Red Blood Count 4.71, Mean Corpuscular Volume 87.5, Mean Corpuscular Hemoglobin 32.3, Mean Corpuscular Hemoglobin Concent 36.9, Mean Platelet Volume 9.5, Neutrophils (%) (Auto) 66.1, Lymphocytes (%) (Auto) 24.1, Monocytes (%) (Auto) 7.6, Eosinophils (%) (Auto) 1.4, Basophils (%) (Auto) 0.5, Neutrophils # (Auto) 7.70, Lymphocytes # (Auto) 2.80, Monocytes # (Auto) 0.88, Eosinophils # (Auto) 0.16, Basophils # (Auto) 0.06 02/09/17 17:50 Test 02/09/17 17:50 02/09/17 17:59 White Blood Count 11.64 K/uL (4.8-10.8) Red Blood Count 4.71 M/uL (4.7-6.1) Hemoglobin 15.2 g/dL (14.0-18.0) Hematocrit 41.2 % (42-52) Mean Corpuscular Volume 87.5 fL (80-100) Mean Corpuscular Hemoglobin 32.3 pg (25-34) Mean Corpuscular Hemoglobin Concent 36.9 g/dl (32-36) Platelet Count 480 K/uL (130-400) Mean Platelet Volume 9.5 fL (7.4-10.4) Neutrophils (%) (Auto) 66.1 % Lymphocytes (%) (Auto) 24.1 % Monocytes (%) (Auto) 7.6 % Eosinophils (%) (Auto) 1.4 % Basophils (%) (Auto) 0.5 % Neutrophils # (Auto) 7.70 K/uL (1.4-6.5) Lymphocytes # (Auto) 2.80 K/uL (1.2-3.4) Monocytes # (Auto) 0.88 K/uL (0.11-0.59) Eosinophils # (Auto) 0.16 K/uL (0-0.5) Basophils # (Auto) 0.06 K/uL (0-0.2) RDW Standard Deviation 38.0 fL (36.4-46.3) RDW Coefficient of Variation 11.9 % (11.5-14.5) Immature Granulocyte % (Auto) 0.3 % Immature Granulocyte # (Auto) 0.04 K/uL (0.00-0.02) Prothrombin Time 10.0 SECONDS (9.0-12.0) Prothromb Time International Ratio 1.0 (0.9-1.1) Activated Partial Thromboplast Time 25.7 SECONDS (21.0-31.0) Partial Thromboplastin Ratio 1.0 Anion Gap 9.0 mmol/L (3-11) Est Creatinine Clear Calc Drug Dose 93.4 ml/min Estimated GFR () 114.3 Estimated GFR (Non- 98.6 BUN/Creatinine Ratio 21.8 (10-20) Calcium Level 9.5 mg/dl (8.5-10.1) Magnesium Level 1.6 mg/dl (1.8-2.4) Total Bilirubin 1.0 mg/dl (0.2-1) Aspartate Amino Transf (AST/SGOT) 18 U/L (15-37) Alanine Aminotransferase (ALT/SGPT) 25 U/L (12-78) Alkaline Phosphatase 95 U/L (45-117) Troponin I < 0.015 ng/ml (0-0.045) Total Protein 9.5 gm/dl (6.4-8.2) Albumin 3.8 gm/dl (3.4-5.0) Globulin 5.7 gm/dl (2.5-4.0) Albumin/Globulin Ratio 0.7 (0.9-2) Thyroid Stimulating Hormone (TSH) 1.580 uIu/ml (0.300-4.500) Bedside D-Dimer 274 ng/mlFEU (0-450) Bedside Troponin I 0.030 ng/ml (0-0.045) Medications Administered Medications (Trade) Dose Ordered Sig/Brayan Route Start Time Stop Time Status Last Admin Dose Admin Sodium Chloride 1,000 ml @ 999 mls/hr Q1H1M STAT IV 02/09/17 20:21 02/09/17 21:21 DC 02/09/17 20:47 999 MLS/HR Medical Decision Patient was seen and evaluated as above. He presents to us today with shortness of breath, left anterior numbness. EKG was obtained and reveals sinus tachycardia, no ectopy or ischemic change. No evidence of an ST segment elevation myocardial infarction. His troponin was also negative. Given that the patient has had the symptoms for the past 3 days if this was a myocardial infarction or significant cardiac event I would expect troponin to be elevated by this point. D-dimer was negative. I was concerned because the patient's tachycardia that he may be experiencing a PE therefore CT scan was performed. This reveals what I believe to be a small pneumonia in the right base. With a small leukocytosis. No anemia. Platelet count high at 480. Coags and d-dimer negative. Troponin negative. Creatinine appropriate. Mag slightly low at 1.6. Potassium low at 132. NSS was given. TSH normal. Chest x-ray was performed before the CT the chest was normal. Case was discussed with the attending physician. I at this time we'll provide the patient with azithromycin that he is to take if he is no better within 24 hours. The numbness is unexplainable at this time completely however there is no evidence of stroke on exam. He is cooperative. He is talking appropriately. He is to follow with his family doctor. He was educated upon management, educated upon his worrisome symptoms which to return, had questions answered prior to discharge, and was discharged home in good condition. In evaluation treatment this patient following differential diagnoses were entertained: MD, PE, pneumonia, CVA, splenic rupture, intra-abdominal process, among others. Impression Primary Impression: Shortness of breath Additional Impression: Pneumonia Departure Information Dispostion Home / Self-Care Condition GOOD Prescriptions Azithromycin (ZITHROMAX) 250 Mg Tab 1 PKT PO UD for 5 Days, #1 PKT Prov: Silvestre Ibarra PA-C 02/09/17 Referrals Osmin Betancur M.D. (PCP) Forms WORK / SCHOOL INSTRUCTIONS, HOME CARE DOCUMENTATION FORM, IMPORTANT VISIT INFORMATION Patient Instructions My [facility] Additional Instructions You were seen in the emergency Department your shortness of breath, and pain/ numbness in the left rib region. At this time there is no evidence of heart attack, or blood clot in the lung. There is concerned he may have a little pneumonia. I recommend azithromycin 500 mg on day one, followed by 250 mg on days 2 through 5 beginning tomorrow evening if you're feeling no better. Please call your family doctor to schedule follow-up tomorrow regarding today's visit. I recommend recheck within 1 week. Please return with any new/concerning symptoms. Problem Qualifiers
== END 2017-02-09 21:26 | disposition home or self-care (01) ==
LOC: C.EDB 17:04
DX: J18.9 Pneumonia, unspecified organism (principal); G83.9 Paralytic syndrome, unspecified; M48.062 Spinal stenosis, lumbar region with neurogenic claudication; Z79.84 Long term (current) use of oral hypoglycemic drugs; Z79.899 Other long term (current) drug therapy; Z80.9 Family history of malignant neoplasm, unspecified; Z83.3 Family history of diabetes mellitus; Z82.49 Family history of ischemic heart disease and other diseases of the circulatory system